=== PATIENT | male | born 1950 | race Caucasian/White ===

== ENCOUNTER 2019-12-09 14:09 | Inpatient (IN) | payer MEDICARE ==
[~2019-12-09] VITALS: Ht 180.3 cm; Wt 86.6 kg
[2019-12-09] MEDS ORDERED: SODIUM CHLORIDE 0.9% 1000ML 1,000 ML IV STA (14:53)
[2019-12-09] MEDS ORDERED: PIPER-TAZ 3.375 GM 50 ML IV STA (14:53)
--- NOTE | 2019-12-09 15:47 | Diagnostic Imaging Report ---
EXAMINATION: FOOT RIGHT COMPLETE INDICATION: Foot infection COMPARISON: None FINDINGS: There is a mildly displaced fracture of the distal shaft of the fourth metatarsal, which may be subacute. There are post traumatic/postoperative changes in this area with loss of the normal bone of the distal fourth metatarsal. Soft tissue swelling at the plantar foot overlying the third and fourth MTP joints with subcutaneous soft tissue emphysema. There are erosions of the third metatarsal head and base of the third proximal phalanx. Degenerative changes of the interphalangeal joint of the great toe. IMPRESSION: Plantar forefoot ulceration and soft tissue swelling. Underlying focal osteopenia and erosions at the third MCP joint concerning for osteomyelitis. Posttraumatic/postoperative changes at the distal fourth metatarsal, proximal fourth phalanx with a fracture of the distal fourth metatarsal shaft, possibly acute or subacute. Signed by: Emilee Cottrell MD on 12/09/2019 3:45 PM
[2019-12-09 16:01] LABS: BASOPHILS # (AUTO) 0.1 (0.0-0.1); BASOPHILS % 0.4 % (0.0-1.0); EOSINOPHILS # (AUTO) 0.1 (0.0-0.4); EOSINOPHILS % 0.6 % (0.0-6.0); HEMATOCRIT 38.1 % (38.2-49.6); HEMOGLOBIN 11.9 g/dL (14.0-18.0); LYMPHOCYTES # (AUTO) 1.1 (1.0-3.2); LYMPHOCYTES % 5.8 % (18.0-39.1); MEAN CORPUSCULAR HEMOGLOBIN 30.5 pg (28-32); MEAN CORPUSCULAR HGB CONC 31.2 g/dL (31-35); MEAN CORPUSCULAR VOLUME 97.7 fL (81-99); MONOCYTES # (AUTO) 1.5 (0.2-0.8); MONOCYTES % 7.4 % (4.4-11.3); NEUTROPHILS # (AUTO) 16.7 (2.1-6.9); PLATELET COUNT 268 x10e3/uL (140-360); RED CELL DISTRIBUTION WIDTH 15.9 % (11.7-14.4)
[2019-12-09 16:16] LABS: ALBUMIN/GLOBULIN RATIO 0.6 (0.8-2.0); ANION GAP 20.8 mmol/L (8-16); CALCIUM 10.5 mg/dL (8.4-10.2); CREATININE, SERUM 8.36 mg/dL (0.72-1.25); POTASSIUM 4.8 mmol/L (3.5-5.1)
[2019-12-09 16:23] LABS: INR 1.15; PROTHROMBIN TIME 15.4 seconds (11.9-14.5)
[2019-12-09 16:24] LABS: PARTIAL THROMBOPLASTIN TIME 35.2 seconds (23.8-35.5)
--- OUTSIDE RECORDS SUMMARY | 2019-12-09 16:58 | XMS REPORT ---
Author [facility] Address Unknown Phone Unavailable Care Team Providers Care English As A Second Language Instructor Name Role Phone Jade DELUNA Unavailable Unavailable Problems This patient has no known problems. Allergies, Adverse Reactions, Alerts This patient has no known allergies or adverse reactions. Medications This patient has no known medications. Encounters Start Date/Time End Date/Time Encounter Type Admission Type Attending Clinicians Care Facility Care Department Encounter ID 2019-07-12 12:41:28 Inpatient [facility] [id number] 2019-06-28 11:17:00 2019-06-28 11:17:00 Outpatient [facility] [id number] Results Test Description Test Time Test Comments Text Results Atomic Results Result Comments FOOT RIGHT COMPLETE 2019-12-09 15:41:00 [place] [id number] Patient Name: SINTIA MCLEAN MR #: [id number] : 1950 Age/Sex: 69/M Req #: [id number] Adm Physician: Ordered by: TRENTON ACHARYA NP Report #: [id number] Location: ER Room/Bed: Procedure: [id number] DX/FOOT RIGHT COMPLETE Exam Date: 12/09/19 Exam Time: 1511 REPORT STATUS: Signed EXAMINATION: FOOT RIGHT COMPLETE INDICATION: Foot infection COMPARISON: None FINDINGS: There is a mildly displaced fracture of the distal shaft of the fourth metatarsal, which may be subacute. There are post traumatic/postoperative changes in this area with loss of the normal bone of the distal fourth metatarsal. Soft tissue swelling at the plantar foot overlying the third and fourth MTP joints with subcutaneous soft tissue emphysema. There are erosions of the third metatarsal head and base of the third proximal phalanx. Degenerative changes of the interphalangeal joint of the great toe. IMPRESSION: Plantar forefoot ulceration and soft tissue swelling. Underlying focal osteopenia and erosions at the third MCP joint concerning for osteomyelitis. Posttraumatic/postoperative changes at the distal fourth metatarsal, proximal fourth phalanx with a fracture of the distal fourth metatarsal shaft, possibly acute or subacute. Signed by: Fermín Dowd MD on 12/09/2019 3:45 PM Dictated By: FEMRÍN DOWD MD 1545 Transcribed By: JAMEY on 12/09/19 1545 COPY TO: TRENTON ACHARYA NP
[2019-12-09] MEDS ORDERED: VANCOMYCIN 1GM/NS 250 ML 250 ML IV SCH (21:00)
[2019-12-09] MEDS ORDERED: AMLODIPINE BESY10 MG PO (22:11)
[2019-12-09] MEDS ORDERED: AMIODARONE HCL200 MG PO (22:11)
[2019-12-09] MEDS ORDERED: INCRUSE ELLI62.5 MCG INH (22:11)
[2019-12-09] MEDS ORDERED: OPTIMAL D31250 MCG PO (22:11)
[2019-12-09] MEDS ORDERED: SYMBICORT 16010.2 GM INH (22:11)
[2019-12-09] MEDS ORDERED: PROAIR DIGIHAL90 MCG INH (22:11)
[2019-12-09] MEDS ORDERED: ETHYL CHLORI103.5 ML TOP (22:11)
[2019-12-09] MEDS ORDERED: DIALYVITE 8000.8 M1 PO (22:11)
[2019-12-09] MEDS ORDERED: ELIQUIS2.5 MG PO (22:11)
[2019-12-09] MEDS ORDERED: MIDODRINE HCL10 MG PO (22:11)
[2019-12-09] MEDS ORDERED: METOPROLOL TART50 MG PO (22:11)
[2019-12-09] MEDS ORDERED: GLIMEPIRIDE2 MG PO (22:11)
[2019-12-09 22:19] LABS: ALBUMIN 2.5 g/dL (3.5-5.0); ALBUMIN/GLOBULIN RATIO 0.5 (0.8-2.0); ANION GAP 18.9 mmol/L (8-16); CALCIUM 9.6 mg/dL (8.4-10.2); CREATININE, SERUM 8.37 mg/dL (0.72-1.25); POTASSIUM 4.9 mmol/L (3.5-5.1)
[2019-12-09] MEDS ORDERED: ALBUTEROL SULFATE HFA 8GM INHALATION AEROSOL INH PRN ×2 (22:30→23:15)
[2019-12-09] MEDS ORDERED: ETHYL CHLORIDE MIST SPRAY 3.5OZ CAN TP SCH (22:30)
[2019-12-09] MEDS ORDERED: AMIODARONE HCL 200 MG TAB PO SCH (22:30)
--- NOTE | 2019-12-09 23:06 | Diagnostic Imaging Report ---
Examination: Single AP view of the chest. COMPARISON: None. INDICATION: Congestion, dyspnea DISCUSSION: The lungs are well-inflated. There are streaky bibasilar opacities, likely atelectasis. Small bilateral pleural effusions. Upper lobes are comparatively well aerated. Enlargement of the cardiac silhouette with prominent central pulmonary vasculature. No acute osseous abnormalities. IMPRESSION: Cardiomegaly with pulmonary venous congestion and small bilateral pleural effusions. Signed by: Dr. Masoud Richmond M.D. on 12/09/2019 11:04 PM
--- NOTE | 2019-12-09 23:28 | NUR ---
Received patient from ER via stretcher. Able to transfer to bed using cane. Patient in stable condition, no s/s of distress or c/o pain at this time. All safety measures in place. Will continue to monitor.
[2019-12-10] VITALS (10 sets, daily range): BP systolic 96–124; BP diastolic 52–59
[2019-12-10] MEDS: APIXAB 2.5 MG TABLET PO SCH ×3 (00:50→20:19)
--- NOTE | 2019-12-10 01:13 | History and Physical ---
CHIEF COMPLAINT: The patient is a 69-year-old who comes in with lower extremity foot and leg swelling. HISTORY OF PRESENTING ILLNESS: 69-year-old gentleman with a history of pain in the right lower extremity for the last 3 months. The patient noticed that the pain and foul smelling discharge started about 2 weeks ago, which has gotten severe. The pain also is described as 8/10 and a throbbing in nature. The patient walked in and was found to have osteomyelitis and cellulitis of the foot. The patient admitted for the same. PAST MEDICAL HISTORY: History of hypertension, history of diabetes mellitus, history of chronic renal disease, history of congestive heart failure. MEDICATIONS: Unknown at this time. SURGERIES: The patient is seen by Dr. Cordero. ALLERGIES: NO DRUG ALLERGIES NOTED. SOCIAL HISTORY: No EtOH. Positive for smoking. FAMILY HISTORY: Diabetes and hypertension. PHYSICAL EXAMINATION: GENERAL: The patient is alert and oriented x3. VITAL SIGNS: Temperature 97.5, pulse 97, respirations 16, blood pressure 116/63, and pulse oximetry 96%. HEENT: Normocephalic and atraumatic. CVS: S1 and S2, regular. Ejection systolic murmur present. LUNGS: Decreased air entry into all lung marley. Positive for inspiratory wheezes. ABDOMEN: Nontender and nondistended. EXTREMITIES: Right lower extremity wrapped up. The patient has foul-smelling discharge with tenderness in the 4th metatarsal. LABORATORY DATA: White count is 19,000, hemoglobin 11.9, and hematocrit 38.1. Chemistry; sodium 131, potassium 4.8, BUN 45, creatinine 8.36, and glucose of 234. MICROBIOLOGY: Blood cultures are pending. IMAGING STUDIES: Foot x-ray shows plantar forefoot ulceration and soft tissue swelling, underlying focal osteopenia and reverse of the 3rd MCP joint. ASSESSMENT: Mr. Jerome Guzman with: 1. Osteomyelitis. 2. End-stage renal disease. The patient has not mentioned anything about dialysis yet. 3. Hypertension. 4. Diabetes mellitus, uncontrolled. 5. Peripheral artery disease. 6. Debility. PLAN: 1. Consult Renal. 2. Consult Dr. Cordero for his arterial Doppler and possible intervention. 3. Consult Dr. Jimenez for antibiotics. 4. Consult Dr. Jorge for Podiatry. 5. Start the patient on insulin sliding scale, statins, and also start the patient on antihypertensive medications. 6. Further recommendation per clinical course. We will continue to monitor the patient along with consultants. MD CLAUDIA Bhakta/CASEY /[id number]
[2019-12-10 01:15] LABS: CREATINE KINASE MB 2.6 ng/mL (0-5.0)
[2019-12-10] MEDS: ALBUTEROL SULF 0.083% NEB SOLN 3 ML NEB NEB PRN (01:40)
--- NOTE | 2019-12-10 01:41 | NUR ---
Placed call to [facility] to schedule patient for hemodialysis session today.
[2019-12-10] MEDS ORDERED: SODIUM CHLORIDE 0.9% 250ML 250 ML ONE (05:07)
[2019-12-10 06:51] LABS: BASOPHILS # (AUTO) 0.1 (0.0-0.1); BASOPHILS % 0.4 % (0.0-1.0); EOSINOPHILS # (AUTO) 0.2 (0.0-0.4); EOSINOPHILS % 1.1 % (0.0-6.0); HEMATOCRIT 33.3 % (38.2-49.6); HEMOGLOBIN 10.7 g/dL (14.0-18.0); LYMPHOCYTES % 6.2 % (18.0-39.1); MEAN CORPUSCULAR HEMOGLOBIN 30.9 pg (28-32); MEAN CORPUSCULAR HGB CONC 32.1 g/dL (31-35); MEAN CORPUSCULAR VOLUME 96.2 fL (81-99); MONOCYTES # (AUTO) 1.2 (0.2-0.8); MONOCYTES % 7.1 % (4.4-11.3); NEUTROPHILS # (AUTO) 13.9 (2.1-6.9); NEUTROPHILS % 83.8 % (38.7-80.0); PLATELET COUNT 222 x10e3/uL (140-360); RED BLOOD COUNT 3.46 x10e6/uL (4.3-5.7); RED CELL DISTRIBUTION WIDTH 15.9 % (11.7-14.4)
[2019-12-10 07:08] LABS: ALBUMIN 2.4 g/dL (3.5-5.0); ALBUMIN/GLOBULIN RATIO 0.5 (0.8-2.0); ANION GAP 18.1 mmol/L (8-16); CALCIUM 9.5 mg/dL (8.4-10.2); CREATININE, SERUM 9.01 mg/dL (0.72-1.25); POTASSIUM 5.1 mmol/L (3.5-5.1)
--- NOTE | 2019-12-10 07:09 | NUR ---
Bedside report given to day nurse. Patient awake and resting in bed, no s/s of distress or c/o pain at this time. All safety measures in place.
--- NOTE | 2019-12-10 07:10 | NUR ---
pt up in bed awake,denies pain
[2019-12-10] MEDS: AMLODIPINE BESYLATE 10 MG TAB PO SCH (09:00)
--- NOTE | 2019-12-10 09:19 | Progress Note ---
DATE: 12/10/2019 SUBJECTIVE: The patient was admitted for cellulitis and osteomyelitis of the right foot. Currently, the patient is more talkative compared to yesterday, going to give more history. More coherent, more alert and oriented. The patient apparently has history of end-stage renal disease, getting dialysis. The patient also has medications, which have been reconciled. Also, the patient is on Eliquis 2.5 mg twice a day. Currently, no chest pain. No shortness of breath. In good spirits. No nausea, no vomiting, or diarrhea. Pain in the right foot is controlled. OBJECTIVE: VITAL SIGNS: Temperature is 99.5, pulse of 79, respirations of 20, blood pressure is 109/52, and pulse oximetry of 93%. HEENT: Normocephalic and atraumatic. Pupils are reactive to light and accommodation. CVS: S1, S2 irregular. ABDOMEN: Nontender, nondistended. EXTREMITIES: Positive for multiple ecchymoses, right lower extremity with drainage, present on socks. Yesterday's examination reviewed ulceration and necrotic tissue with possible discharge. LABORATORY VALUES: Today, white count is 16,000 down from 19,000 yesterday; hemoglobin of 10.7, hematocrit 33.3. Chemistry; shows sodium of 130, potassium of 5.1. BUN of 58, creatinine of 9.0. Hemoglobin A1c checked showed 7.7. CK, CK-MB, and troponins have been trended to be negative. ALT and AST are normal. Coags are within normal limits. INR is 1.15. MICROBIOLOGY: Blood cultures are pending. Wound culture has been done. ASSESSMENT: Mr. Jerome Guzman with: 1. End-stage renal disease. 2. Osteomyelitis. 3. Hypertension. 4. Diabetes mellitus. 5. Peripheral arterial disease. 6. Debility. PLAN: 1. Renal consult for dialysis. 2. Consult with Dr. Jimenez for ID and also for long-term IV antibiotics. Dr. Jorge is consulted. We will need debridement and incision and drainage of the foot. 3. Also, consult with Dr. Cordero for arterial doppler and possible intervention if needed for PAD. 4. Further recommendation per clinical course. Medicines have been restarted. Additional imaging of chest shows cardiomegaly with pulmonary venous congestion and small bilateral pleural effusion. Further recommendation per clinical course. Echocardiogram has been ordered. An arterial Doppler has been ordered, which has been pending. MD CLAUDIA Bhakta/CASEY /[id number]
[2019-12-10] MEDS: CHOLECALCIFEROL 1,000 UNIT TAB PO SCH (09:47)
[2019-12-10] MEDS: GLIMEPIRIDE 2 MG TAB PO SCH (09:47)
[2019-12-10] MEDS: FOLIC ACID/CYANOCOB/PYRIDOXINE TAB PO SCH (09:47)
[2019-12-10] MEDS: INSULIN LISPRO 100 UNIT/1 ML 3ML VIAL SQ SCH ×3 (09:47→20:19)
[2019-12-10] MEDS ORDERED: VANCOMYCIN 1GM/NS 250 ML 250 ML IV SCH (11:00)
--- NOTE | 2019-12-10 12:45 | Consultation ---
DATE OF CONSULTATION: 12/10/2019 HISTORY OF PRESENT ILLNESS: Here with gangrene of the foot. Had foul-smelling discharge and discoloration for last seven days, maybe even two weeks ago. Pain has gotten worse. He has now found to have osteomyelitis on that side. There is history of chronic smoking as well as peripheral vascular disease and COPD as well as diabetes. He did have some work done on the peripheral circulation by Dr. Olguin. PAST HISTORY: Peripheral vascular disease, hypertension, type 2 diabetes with end-organ damage, CHF, chronic smoking, coronary artery disease. MEDICATIONS: Please see list. ALLERGIES: NONE KNOWN. SOCIAL HISTORY: At least 50 pack year history of smoking. FAMILY HISTORY: Hypertension. REVIEW OF SYSTEMS: SKIN: Discoloration on the right foot. MUSCULOSKELETAL: Pain in the right foot. CARDIAC: Denies angina or syncope. RESPIRATORY: Chronic cough. Occasional wheezing. GI: Denies nausea or vomiting. : Minimal urine production. Rest of review is negative. PHYSICAL EXAMINATION: GENERAL: Lying in bed, appears to be in some pain. VITAL SIGNS: Temperature is 97, pulse 98, blood pressure 111/54. HEENT: Grossly Atraumatic. CHEST: Minimal wheeze (still smokes). CARDIAC: Normal heart tones. Question S4. EXTREMITIES: Trace edema on the right side, none on the left. ABDOMEN: Benign. NEUROLOGIC: Alert, appropriate. Speech is normal. SKIN: Right foot is bandaged. There appears to be some erythema around the bandaging. There is a foul smell coming from the right foot. LABORATORY DATA: Chest x-ray shows congestion. Hemoglobin 10.7. Sodium 130, K 5.1, creatinine 9, BUN 58, serum CO2 22, anion gap 18. ASSESSMENT: 1. End-stage renal disease. 2. Minimal fluid overload. 3. History of chronic hyperkalemia, controlled by dialysis. 4. Underlying diabetic hypertension, end-organ damage. 5. Peripheral vascular disease. 6. Ongoing nicotine use. 7. Likely chronic obstructive pulmonary disease. PLAN: Definitive treatment is hemodialysis from my end. Podiatry will see him regarding the foot. We will also get Dr. Olguin to see him regarding his peripheral circulation as I had had worked on it before to see if anything more can be done. I have also encouraged him to quit smoking on a regular basis over the last several years. We will continue to do so. Please see my dialysis orders for details. MD LINDA Ling/CASEY /[id number]
[2019-12-10] MEDS: HYDROCODONE/APAP 5MG-325MG TAB PO PRN (16:00)
--- NOTE | 2019-12-10 18:15 | Consultation ---
DATE OF CONSULTATION: 12/10/2019 The patient at [facility]. The patient of Dr. Patrick Cabrera. Before anything, I want to thank you for this kind of consult. This patient was seen, evaluated, and discussed with Dr. Jimenez in details. Currently, dialysis and Radiology in the room getting dialyzed and getting arterial Doppler of his lower extremities bilateral. HISTORY OF PRESENT ILLNESS: This is a pleasant 69-year-old gentleman with complicated past medical history. The patient had presented to the hospital complaining of right lower extremity wounds between his first and second toe and some redness at the base of the third toe with progressive worsening. He has been going on for three months and now started having to drainage for past couple of weeks and malodorous. The patient was admitted for evaluation and further management of his infection. PAST MEDICAL HISTORY: Includes hypertension, diabetes mellitus type 2, chronic renal insufficiency on dialysis, and congestive heart failure. SOCIAL HISTORY: Lives alone. He smokes 4-5 cigarettes a day, but denies history of alcohol or illicit drugs. ALLERGIES: ALLERGY TO PENICILLIN. SURGERIES: Dialysis line placement. FAMILY HISTORY: Diabetes and hypertension. LABORATORY STUDIES: Admitted with a white count of 19.82, improved to 16.56 today, hemoglobin is 10.7, platelet count of 222. Sodium 130, potassium 5.1, and creatinine 9.01. The patient is on dialysis. RADIOLOGY STUDIES: Had an x-ray of the foot on 12/09/2019 showing plantar forefoot ulceration of soft tissue swelling, underlying focal osteopenia, and erosion of the third MCP joint concerning for osteomyelitis, also posttraumatic/postoperative changes at the distal fourth metatarsal, proximal fourth phalanx, and a fracture of the distal fourth metatarsal shaft, possibly acute or subacute. MEDICATIONS: Medication list reviewed. As far as Infectious Disease point of view, the patient is on vancomycin and has received a dose of Zosyn. Considering the patient is allergic to penicillin, there are no active acute allergic reaction noted. VITAL SIGNS: Temperature 97.1, pulse is 98, respirations 20, and blood pressure 111/54. The patient has not had any fever since admission. PHYSICAL EXAMINATION: GENERAL: Alert and oriented x3, very pleasant, comfortable in bed, no acute distress. CV: S1-S2. CHEST: Equal expansion. Clear to auscultation. No acute distress. HEENT: Moist. No pallor. No JVD. ABDOMEN: Soft and nontender. No distention. EXTREMITIES: Right foot pus drainage noted between the first and second toe with erythema of the toes up to the mid metatarsal area. The wound is malodorous and I was able to squeeze some pus out of his wound on the right foot. ASSESSMENT AND PLAN: A pleasant 69-year-old gentleman with progressive worsening of the right foot wound now with draining of pus and malodorous x-ray concerned about osteo. The patient is on dialysis and allergic to penicillin. We will change antibiotics to vancomycin IV and Merrem renally dosed. Add vancomycin 1 g IV piggyback every dialysis and Merrem 500 mg IV piggyback daily. We will get MRI of the right foot without the contrast since the patient is on dialysis. Follow up with the cultures. Further management of this patient is based on daily finding on laboratory and physical examination. I want to thank you again for this kind of consult. I have discussed with Dr. Jimenez about this patient in details. Dictated by Stephen Siddiqui PA-C (Al) Oscar Jimenez MD /MODL /[id number]
--- NOTE | 2019-12-10 18:22 | NUR ---
PT IN BED SLEEPING NO DISTRESS NTOED,PAIN LEVEL 3.
--- NOTE | 2019-12-10 20:16 | NUR ---
Received change of shift report from AM nurse. Walking rounds completed.
[2019-12-10] MEDS: ONDANSETRON HCL INJ 2MG/ML 2ML 2 MG/ML VIAL IV PRN (21:00)
--- NOTE | 2019-12-10 21:00 | NUR ---
Redressed patient left foot after shower. Patient tolerated well.
--- NOTE | 2019-12-10 22:12 | Consultation ---
DATE OF CONSULTATION: 12/10/2019 Cardiology Consultation REASON FOR CONSULTATION: Peripheral arterial disease. HISTORY OF PRESENT ILLNESS: This is a 69-year-old man with a history of paroxysmal atrial fibrillation with prior cardioversion in the past and status post implantable loop recorder. He is on anticoagulation, hypertension, hyperlipidemia, prior tobacco use, and peripheral arterial disease status post intervention in 2019, who presented to the emergency department with a foot infection. The patient reports he has had significant pain with foul smelling discharge that approximately started a few weeks ago was severe, was found to have cellulitis, and osteomyelitis. REVIEW OF SYSTEMS: A 12-point review of system was conducted, is negative except as stated above in the HPI. PAST MEDICAL HISTORY: Hypertension, diabetes mellitus, peripheral arterial disease, atrial fibrillation, aortic stenosis. MEDICATIONS: See medications of reconciliation form. PAST SURGICAL HISTORY: Percutaneous peripheral intervention. SOCIAL HISTORY: No illicit drug or alcohol use. Positive for tobacco. FAMILY HISTORY: Noncontributory to current illness. ALLERGIES: PENICILLIN. PHYSICAL EXAMINATION: VITAL SIGNS: Temperature is 97.1, heart rate is 85, respirations are 20, blood pressure is 111/54, oxygen saturation is 96% on room air. GENERAL: He is a chronically ill-appearing male, lying comfortably in bed, no apparent distress. Alert and oriented x3. HEENT: Head, normocephalic and atraumatic. Eyes, extraocular muscles intact. Conjunctivae clear. NECK: No JVD. No bruits. CARDIOVASCULAR: Irregularly irregular. Systolic murmur at the right sternal border. LUNGS: Clear to auscultation. ABDOMEN: Soft, nontender, and nondistended. EXTREMITIES: Diminished pulses. Red erythema under the right foot and toes are wrapped and dressed. LABORATORY DATA: Reviewed shows a creatinine of 9. Potassium 5.1. IMPRESSION: 1. Acute kidney injury, likely end-stage renal disease. 2. Hypertension. 3. Peripheral arterial disease. 4. Right foot wound with osteomyelitis. 5. Diastolic heart failure. 6. Atrial fibrillation. RECOMMENDATIONS: This patient has severe peripheral arterial disease, status post intervention in 2019. His arterial Doppler showed severe femoral popliteal and runoff disease in bilateral lower extremities. I also recommend peripheral intervention for adequate wound healing. His echocardiogram has showed preserved left ventricular systolic function with likely diastolic dysfunction. Continue current cardiovascular medications for his hypertension and atrial fibrillation. Antibiotics per primary team. Resume amiodarone for rate control. The patient will be initiated on hemodialysis. DO REAL Vaughan/CASEY /[id number]
[2019-12-11] VITALS (7 sets, daily range): BP systolic 92–115; BP diastolic 50–60
--- NOTE | 2019-12-11 03:00 | NUR ---
Patient resting quitly at this time. Continue monitor.
[2019-12-11] MEDS: ALBUTEROL SULF 0.083% NEB SOLN 3 ML NEB NEB PRN (07:15)
--- NOTE | 2019-12-11 07:15 | NUR ---
PT UP IN BED NO S/S DISCOMFORT,DRSG TO RT FOOT CD&I
[2019-12-11] MEDS: INSULIN LISPRO 100 UNIT/1 ML 3ML VIAL SQ SCH ×4 (07:30→20:52)
--- NOTE | 2019-12-11 07:54 | Progress Note ---
DATE: 12/11/2019 SUBJECTIVE: The patient is here for cellulitis of the lower extremity. The patient is diabetic, history of coronary artery disease and history of hypertension. The patient had pain in the extremities yesterday. He was started on [place] 5/325 every 8 hours and the pain is better controlled. Medications reviewed. The patient is also on albuterol and Atrovent treatment for his COPD. OBJECTIVE: VITAL SIGNS: Temperature is 98.2, pulse of 85, respirations of 18, blood pressure is 92/53, pulse oximetry of 95% on room air. HEENT: Normocephalic and atraumatic. Pupils are reactive to light and accommodation. CVS: S1 and S2 irregularly irregular. Systolic murmur present. LUNGS: Decreased air entry. ABDOMEN: Soft, nontender. LABORATORY VALUES: Today shows white count of 16,000 down from 19,000. Chemistry; sodium 130, potassium of 5.1, BUN of 58, creatinine of 9.0, glucose is running in the 120s to 207. ASSESSMENT: Mr. Jerome Guzman with: 1. Worsening of right foot, concerning of osteomyelitis. 2. End-stage renal disease. Continue with dialysis. Renal team on-board. 3. Hypertension. Continue with antihypertensive. 4. Peripheral arterial disease. 5. Diastolic dysfunction and heart failure. 6. Atrial fibrillation. PLAN: Continue monitoring the patient. Arterial Doppler with femoral or popliteal and runoff diseases. Peripheral intervention will be needed. The echo shows left ventricular preserved function. Continue current cardiovascular medications. Continue with dialysis. Continue with antibiotics. Dr. Jimenez is on-board and reconsult Dr. Jorge for possible intervention with foot, he may need amputation. MD BETH BhaktaJ/MODL /[id number]
[2019-12-11] MEDS: GLIMEPIRIDE 2 MG TAB PO SCH (08:00)
[2019-12-11] MEDS: MEROPENEM 500MG/ NS 50ML 50 ML IV SCH (09:00)
[2019-12-11] MEDS: AMLODIPINE BESYLATE 10 MG TAB PO SCH (09:00)
[2019-12-11] MEDS: METOPROLOL TARTRATE 50 MG TAB PO SCH ×2 (09:00→20:52)
[2019-12-11] MEDS: APIXAB 2.5 MG TABLET PO SCH ×2 (09:00→20:51)
[2019-12-11] MEDS: HYDROCODONE/APAP 5MG-325MG TAB PO PRN ×2 (09:00→14:14)
[2019-12-11] MEDS: CHOLECALCIFEROL 1,000 UNIT TAB PO SCH (09:00)
[2019-12-11] MEDS: FOLIC ACID/CYANOCOB/PYRIDOXINE TAB PO SCH (09:51)
[2019-12-11] MEDS: ACETAMINOPHEN 325 MG TAB PO PRN (12:08)
--- NOTE | 2019-12-11 15:45 | Progress Note ---
DATE: 12/11/2019 Cardiology Progress Note SUBJECTIVE: The patient denies any chest pain or shortness of breath. Reports leg pain. OBJECTIVE: VITAL SIGNS: Temperature is 101, heart rate is 103, respirations are 20, blood pressure is 115/54, oxygen saturation 96% on room air. GENERAL: He is a chronically ill-appearing male, lying comfortably in bed. CARDIOVASCULAR: Irregularly irregular. Tachycardic. LUNGS: Decreased breath sounds at bases. ABDOMEN: Soft, nontender, and nondistended. EXTREMITIES: Decreased pulses. Right foot wound is wrapped and dressed. IMPRESSION: 1. End-stage renal disease. 2. Hypertension. 3. Peripheral artery disease. 4. Right foot wound with osteomyelitis. 5. Diastolic heart failure. 6. Atrial fibrillation. RECOMMENDATION: Arterial Doppler showed severe peripheral artery disease. He has had a previous intervention. Likely, we will need arterial intervention prior to amputation and/or debridement for wound healing. Continue apixaban for his anticoagulation. Continue amiodarone and titrate his beta-daria for better heart rate reduction. DO REAL Vaughan/MODL /[id number]
--- NOTE | 2019-12-11 16:00 | NUR ---
PT UP ON SIDE OF BED REMOVED TELE STATED HE WAS GOING HOME,EXPLAINED TO HIM NO HE COULD NOT ,ACKNOWLEDGE UNDERSTANDING.ASSISTED BACK TO BED ,BED ALARM ON 2 POSITION.
--- NOTE | 2019-12-11 18:00 | NUR ---
PT UP IN BED ,PAIN LEVEL 3 ,TELE IN PLACE AFIB.
--- NOTE | 2019-12-11 19:31 | NUR ---
Received change of shift report from AM nurse. Walking rounds completed.
--- NOTE | 2019-12-11 21:05 | Consultation ---
DATE OF CONSULTATION: 12/11/2019 REASON FOR CONSULTATION: Right foot cellulitis. CHIEF COMPLAINT/HISTORY OF PRESENT ILLNESS: This is a pleasant gentleman, who recently noticed redness, swelling as well as pain to the right foot. He stated his pain is not significant; however, he did notice some discomfort. At this point in time, he currently denies any nausea, vomiting, fevers, chills thigh pain, chest pain, calf pain, shortness of breath. He did complain of some nausea earlier with lunch. PAST MEDICAL HISTORY: Significant for end-stage renal disease, diabetes mellitus, coronary artery disease, as well as peripheral vascular disease. SOCIAL HISTORY: The patient is a smoker. He smokes about 7-8 cigarettes per day for over 20 years. PREVIOUS SURGICAL HISTORY: Cardiac valve replacement. FAMILY MEDICAL HISTORY: Noncontributory. REVIEW OF SYSTEMS: See admission PHYSICAL EXAMINATION: GENERAL: The patient is alert, awake, oriented x3, in no acute distress. VASCULAR EXAMINATION: The patient has nonpalpable both dorsalis pedis and posterior tibial pulses bilaterally. the right lower extremity. DERMATOLOGIC: Reveals increased erythema as well as edema to the patient's right anterior ankle dorsal foot well extending to the first interspace. Additionally, there is a full thickness ulceration with necrosis to the 1st interspace. No crepitus is noted. No fluctuance is present. There is also ulceration to the plantar and lateral aspect of the right foot underlying the 3rd to 4th metatarsophalangeal joint. Localized periwound erythema is noted. Malodor is present. NEUROLOGIC: The patient has loss of DIAGNOSTIC STUDIES: Sodium 130, potassium 5.1, chloride level is 95, CO2 is 22, BUN 58, creatinine is 9.01, glucose 190. WBC is 16.5, hemoglobin 10.7, hematocrit is 33.3, platelet count is 222. ASSESSMENT: 1. Cellulitis with possible abscess, right foot. 2. Possible osteomyelitis, right foot. 3. Peripheral arterial occlusive disease, right lower extremity. 4. Diabetes mellitus peripheral neuropathy. 5. End-stage renal disease. RECOMMENDATIONS: 1. At this point in time, IV antibiotics per Infectious Disease. 2. Local wound care will be started with Betadine twice on a daily basis. 3. MRI with and without contrast is currently ordered. 4. Arterial Dopplers were reviewed, which revealed monophasic waveforms bilaterally from proximal to distal. 5. Heel decubitus precautions are certainly recommended. 6. At this point in time, the patient will require an I and D of the right foot with possible bone debridement; however, that would be pending MRI. Additionally, vascular evaluation currently has been ordered and we are awaiting the results of vascular exam to determine healing potential. Further recommendations will begin based on the patient's clinical progression. Dr. Jorge will follow this patient tomorrow. Dr. Cabrera, thank you for this consultation. this patient with you. Alfredo Kuhn DPM MM/CASEY /[id number]
--- NOTE | 2019-12-11 22:52 | NUR ---
Patient BP at 98/60. o2 sat at 90%. Patient c/o being weak. Placed 2L o2 on patient to help with low sat. Patient states BP gets low at times and he knows when it is very low. Patient states i feel ok. Night meds given. Patient asst into a comfortable position. Continue monitor.
[2019-12-12] VITALS (9 sets, daily range): BP systolic 94–103; BP diastolic 50–55
[2019-12-12] MEDS: ONDANSETRON HCL INJ 2MG/ML 2ML 2 MG/ML VIAL IV PRN ×2 (05:06→10:50)
[2019-12-12] MEDS: INSULIN LISPRO 100 UNIT/1 ML 3ML VIAL SQ SCH ×4 (07:30→20:15)
--- NOTE | 2019-12-12 07:30 | NUR ---
PATIENT IN BED RESTING WITH EYES CLOSED, HEAD OF BED ELEVATED, NO DISTRESS NOTED. TELEMETRY BOX IN PLACE. BED IN LOWER POSITION, CALL LIGHT AT REACH.
[2019-12-12] MEDS: GLIMEPIRIDE 2 MG TAB PO SCH (08:00)
[2019-12-12] MEDS: AMLODIPINE BESYLATE 10 MG TAB PO SCH (09:00)
[2019-12-12] MEDS: APIXAB 2.5 MG TABLET PO SCH ×2 (09:00→20:16)
[2019-12-12] MEDS: FOLIC ACID/CYANOCOB/PYRIDOXINE TAB PO SCH (09:00)
[2019-12-12] MEDS: CHOLECALCIFEROL 1,000 UNIT TAB PO SCH (09:00)
[2019-12-12] MEDS: METOPROLOL TARTRATE 50 MG TAB PO SCH ×2 (09:00→20:17)
[2019-12-12] MEDS: MEROPENEM 500MG/ NS 50ML 50 ML IV SCH (09:02)
[2019-12-12 09:38] LABS: ALANINE AMINOTRANSFERASE 31 IU/L (0-55); ALBUMIN 2.5 g/dL (3.5-5.0); ALKALINE PHOSPHATASE 185 IU/L (40-150); AMYLASE 23 U/L (25-125); BILIRUBIN,DIRECT 1.2 mg/dL (0.0-0.5)
[2019-12-12 09:41] LABS: LIPASE < 4 U/L (8-78)
--- NOTE | 2019-12-12 10:30 | NUR ---
PATIENT C/O HEART BURN, NOTIFIED, NEW ORDER RECEIVED.
[2019-12-12] MEDS: PANTOPRAZOLE 40 MG 10ML VIAL IV SCH ×2 (10:51→17:00)
[2019-12-12] MEDS: DEXTROSE 50% SYRINGE 50 ML IV PRN (11:50)
--- NOTE | 2019-12-12 12:38 | Progress Note ---
DATE: 12/12/2019 SUBJECTIVE: Getting wound care and antibiotics for possible osteomyelitis at this point. I and D and possible bone debridement is being considered. Denies any new dyspnea, but he does have chronic wheezing. There is a history of COPD. PHYSICAL EXAMINATION: VITAL SIGNS: Temperature 98.4, pulse 85, blood pressure 94/55. CHEST: Faint crackles at the bases. Minimal wheeze. CARDIAC: Normal heart tones. Rhythm sounds regular. EXTREMITIES: Trace edema on the left, 1+ on the right. Right foot is bandaged with foul smell. LABORATORY DATA: Hemoglobin of 10.7. Last potassium was 5.1. ASSESSMENT: 1. End-stage renal disease. 2. Diabetic nephropathy. 3. Chronic obstructive pulmonary disease. 4. Peripheral vascular disease with concern for osteomyelitis/cellulitis of the right foot. PLAN: From renal standpoint, hemodialysis today 4 hour run, 2 potassium bath. I removed 3 L of fluid, if his blood pressure tolerates. He takes midodrine predialysis. We will start cutting back his amlodipine. MD ROBERT LingK/LEONARDAL /[id number]
--- NOTE | 2019-12-12 13:00 | NUR ---
PATIENT NOTED WITH BLOOD SUGAR OF 48. NO S/S OF HYPOGLYCEMIA NOTED. PATIENT STATED "I AM FINE". DEXTROSE 50% GIVEN ORDERED. BLOOD SUGAR RECHECKED WITH THE READING OF 128. MD NOTIFIED, NO NEW ORDER RECEIVED. WILL CLOSELY MONITOR.
--- NOTE | 2019-12-12 14:20 | NUR ---
PATIENT OFF UNIT TO RADIOLOGY.
--- NOTE | 2019-12-12 15:04 | Progress Note ---
DATE: 12/12/2019 SUBJECTIVE: Mr. Guzman is lying in bed comfortably. There is no new complaint. Discussed with Podiatry. HISTORY OF PRESENT ILLNESS: This patient is a 69-year-old, who has complicated medical history, history of diabetes, hypertension, comes in with sepsis, infected foot. The patient has been on meropenem and vancomycin. He was seen by Podiatry. They plan for him to have surgical debridement, would also need Vascular workup. MRI is still pending. REVIEW OF SYSTEMS: As mentioned above. HEENT: Negative. PULMONARY: Negative. CARDIAC: Negative. LABORATORY DATA: His cultures are still negative. White count came down to 16. IMPRESSION: 1. Infection of the foot, concerned about osteomyelitis, concerned about abscess. 2. Right foot infection. 3. Severe peripheral vascular disease. 4. Diabetes mellitus with neuropathy. 5. End-stage renal disease, on dialysis. PLAN: Plan is to continue with meropenem daily, vancomycin after each hemodialysis, Vascular workup, surgical debridement per Podiatry. MRI is still pending. We will follow. MD IVETTE Lino/CASEY /[id number]
--- NOTE | 2019-12-12 15:06 | Diagnostic Imaging Report ---
Abdomen, one view on 2 radiographs Clinical indications: Emesis Comparison: None Findings: The bowel gas pattern is nonobstructive. No dilated loops of large or small bowel are identified. Atherosclerotic calcifications of the abdominal aorta are noted. No acute osseous abdomen bodies. Impression: Nonobstructive bowel gas pattern. Signed by: Steven Jain MD on 12/12/2019 3:04 PM
[2019-12-12] MEDS ORDERED: SODIUM CHLORIDE 0.9% 1000ML 2,000 ML ONE (15:15)
--- NOTE | 2019-12-12 15:40 | NUR ---
PATIENT BACK TO UNIT. BED SIDE HEMODIALYSIS STARTED. CALL LIGHT AT REACH.
[2019-12-12] MEDS ORDERED: POVIDONE IODINE 10% 120 ML BTL EXT PRN (19:00)
--- NOTE | 2019-12-12 21:51 | Progress Note ---
DATE: 12/12/2019 Cardiology Progress Note SUBJECTIVE: The patient denies chest pain or shortness of breath. OBJECTIVE: VITAL SIGNS: Temperature 95.5 degrees, pulse 109, respiratory rate 19, blood pressure 94/51, oxygen saturation 95% on room air. GENERAL: Awake, alert, in no acute distress. LUNGS: Clear to auscultation bilaterally. No wheezes or crackles. CARDIOVASCULAR: Normal rate, irregularly irregular. No murmur. Normal S1, S2. ABDOMEN: Soft, nontender. EXTREMITIES: Dressing present on the right lower extremity. No edema. CARDIAC MEDICATIONS: Metoprolol tartrate 50 mg p.o. every 12 hours, apixaban 2.5 mg p.o. every 12 hours, amiodarone 200 mg p.o. daily. LABORATORY DATA: AST 49, ALT 31, amylase 23, lipase less than 4. Telemetry was personally reviewed, court interpreter revealing atrial fibrillation. IMPRESSION: 1. Right foot wound with osteomyelitis. 2. Peripheral arterial disease. 3. Atrial fibrillation. 4. End-stage renal disease. 5. Hypertension. 6. Diastolic heart failure. RECOMMENDATIONS: Arterial Doppler showed severe peripheral arterial disease. He will need repeat peripheral angiogram and possible intervention to assist with wound healing. The patient can hold apixaban for any procedures and continue current cardiac medications. Titrate if heart rate is persistently elevated. Thank you for this consult. We will continue to follow. Qiana Broderick MD ABS/MODL /[id number]
[2019-12-13] VITALS (10 sets, daily range): BP systolic 87–113; BP diastolic 49–58
[2019-12-13] MEDS: MIDODRINE HCL 5 MG TABLET PO SCH (00:10)
--- NOTE | 2019-12-13 01:37 | Consultation ---
DATE OF CONSULTATION: 12/12/2019 CHIEF COMPLAINT: Mr. Guzman is most pleasant 69-year-old gentleman who admitted to [facility] over the weekend. He is a patient of Dr. Patrick Cabrera. Since admission, he has seen Dr. Serg Bills, who has kindly consulted me to evaluate and treat the patient. He has also seen Dr. Johnson of Infectious Disease and Dr. Olguin of vascular. The patient is currently on dialysis and is having dialysis at the time of my rounds. HISTORY OF THE PRESENT ILLNESS: Mr. Guzman states over the course of the last several weeks, he started noticing small spots of blood on his sock and dressing which ultimately became a full-thickness skin slough with drainage and foul odor. He also has nausea, vomiting, and presented to the ER with septicemia. PAST MEDICAL HISTORY: Includes hypertension, diabetes, chronic renal insufficiency on dialysis currently. However, he states he was not on dialysis prior to his admission. The patient has a history of congestive heart failure. SOCIAL HISTORY: Lives alone. He is a smoker, 4-5 cigarettes a day. Denies history of alcohol. ALLERGIES: PENICILLIN. FAMILY HISTORY: Includes diabetes and hypertension. CURRENT LABS: Still showing elevated white count at 16.00. He was admitted with 19.82. The patient's x-rays which were taken in the ER on 12/09 showed plantar forefoot ulceration with osteopenia erosion of the 3rd metatarsophalangeal joint, likely osteomyelitis with a 4th metatarsal fracture. MEDICATIONS: The patient is currently on vancomycin via dialysis. PHYSICAL EXAMINATION: VITAL SIGNS: The patient is currently afebrile. EXTREMITIES: Physical evaluation of the lower extremity vascular status the patient has nonpalpable pedal pulses. Vascular evaluation is currently being performed by Dr. Bassem Olguin in consideration of his overall health care needs and dialysis. Neurologically, he does appear to have a loss of protective sensation as evidenced by Lyons-Constance monofilament testing. Dermatologically the wounds today. The left foot has no obvious wounds, but does have dry xerotic skin with onychomycosis. The right foot similarly has dry xerotic skin with onychomycosis. There are multiple darkened blackened plaques on the plantar aspect of the left foot. Review of the radiographic report does show the aforementioned bone breakdown and fracture, likely osteomyelitis. There is an open draining wound in the first intermetatarsal space as well as the second intermetatarsal space. Drainages of a foul odor and there is a bullous lesion with edema and erythema proximally. DIAGNOSES: Diabetic foot wound with osteomyelitis. There is fairly significant tissue breakdown and osteomyelitis with severe PAD. I agree with Dr. Olguin. He is likely in need of revascularization prior to attempted amputation of the right foot. He is currently on dialysis Thursday, Thursday and Thursday. Hopefully, he will have his MRI and vascular evaluation tomorrow. Dialysis again on Thursday, then perhaps surgical intervention either with I and D or amputation as determined based upon the aforementioned studies on . Thank you very much, Dr. Kuhn, for covering for me over the weekend and already evaluating this patient. Thank you, Elizabeth Claudio Schnell and vascular and renal services for attending to those needs prior to surgical intervention. JENSEN Canela/CASEY /[id number]
[2019-12-13 05:56] LABS: BASOPHILS # (AUTO) 0.1 (0.0-0.1); BASOPHILS % 0.5 % (0.0-1.0); EOSINOPHILS # (AUTO) 0.1 (0.0-0.4); EOSINOPHILS % 0.4 % (0.0-6.0); HEMATOCRIT 32.8 % (38.2-49.6); HEMOGLOBIN 10.7 g/dL (14.0-18.0); LYMPHOCYTES # (AUTO) 1.1 (1.0-3.2); LYMPHOCYTES % 7.1 % (18.0-39.1); MEAN CORPUSCULAR HEMOGLOBIN 31.3 pg (28-32); MEAN CORPUSCULAR HGB CONC 32.6 g/dL (31-35); MEAN CORPUSCULAR VOLUME 95.9 fL (81-99); MONOCYTES # (AUTO) 1.4 (0.2-0.8); NEUTROPHILS # (AUTO) 12.3 (2.1-6.9); NEUTROPHILS % 80.3 % (38.7-80.0); PLATELET COUNT 289 x10e3/uL (140-360); RED BLOOD COUNT 3.42 x10e6/uL (4.3-5.7); RED CELL DISTRIBUTION WIDTH 16.1 % (11.7-14.4)
[2019-12-13 06:20] LABS: ANION GAP 14.2 mmol/L (8-16); CALCIUM 8.6 mg/dL (8.4-10.2); CREATININE, SERUM 5.02 mg/dL (0.72-1.25); POTASSIUM 4.2 mmol/L (3.5-5.1)
[2019-12-13] MEDS: DEXTROSE 50% SYRINGE 50 ML IV PRN (06:45)
--- NOTE | 2019-12-13 07:25 | NUR ---
PATIENT IN BED RESTING WITH NO S/S OF DISTRESS. DRESSING INTACT TO RIGHT FOOT. CALL LIGHT AT REACH.
[2019-12-13] MEDS: INSULIN LISPRO 100 UNIT/1 ML 3ML VIAL SQ SCH ×4 (07:30→21:00)
[2019-12-13] MEDS: GLIMEPIRIDE 2 MG TAB PO SCH (08:00)
[2019-12-13] MEDS: METOPROLOL TARTRATE 50 MG TAB PO SCH ×2 (09:00→21:00)
[2019-12-13] MEDS: MEROPENEM 500MG/ NS 50ML 50 ML IV SCH (09:28)
[2019-12-13] MEDS: APIXAB 2.5 MG TABLET PO SCH (09:28)
[2019-12-13] MEDS: FOLIC ACID/CYANOCOB/PYRIDOXINE TAB PO SCH (09:28)
[2019-12-13] MEDS: PANTOPRAZOLE 40 MG 10ML VIAL IV SCH ×2 (09:28→17:31)
[2019-12-13] MEDS: CHOLECALCIFEROL 1,000 UNIT TAB PO SCH (09:28)
--- NOTE | 2019-12-13 10:38 | NUR ---
PATIENT OFF UNIT TO RADIOLOGY.
--- NOTE | 2019-12-13 11:28 | NUR ---
PATIENT BACK TO UNIT FROM RADIOLOGY. ASSISTED BACK TO BED. CALL LIGHT AT REACH.
--- NOTE | 2019-12-13 12:33 | Diagnostic Imaging Report ---
TECHNIQUE: Magnetic resonance imaging of the RIGHT foot was performed WITHOUT injected contrast. HISTORY: Right foot pain COMPARISON: None available. DISCUSSION: Post infectious/surgical change involving the third MTP joint with absence of the metatarsal head and phalangeal base with chronic appearing signal abnormality. Healed fractures of the second metacarpal and proximal phalanx. Chronic erosive change about the IP joint of the hallux. Plantar foot ulceration adjacent to the third MTP joint with probable osteomyelitis of the metatarsal head and proximal phalanx. Additional subcortical edema of the second metatarsal head without T1 replacement. Ill-defined soft tissue phlegmon/abscess extending plantar to the second metatarsal head and extending in the first intermetatarsal space and dorsal forefoot extending along the tenosynovium of the extensor tendon predominantly of the second toe. IMPRESSION: Multifocal chronic change as above most prominent involving the fourth toe. Soft tissue ulceration plantar to the third MTP joint with probable adjacent osteomyelitis. Ill-defined soft tissue phlegmon/abscess involving the forefoot as above. Signed by: Dr. Wilbert Bowen M.D. on 12/13/2019 12:31 PM
--- NOTE | 2019-12-13 15:37 | NUR ---
PATIENT IN BED RESTING WITH HEAD OF BED ELEVATED. CALL LIGHT AT REACH.
--- NOTE | 2019-12-13 19:30 | NUR ---
Patient received lying in bed. AAO x 3. No complaints of pain. No signs of respiratory distress. Bed locked and in lowest position. Bed rails up x 2. Patient instructed to call for assistance when needed. Call light within reach.
--- NOTE | 2019-12-13 19:53 | Progress Note ---
DATE: 12/13/2019 The patient seen today, resting comfortably on rounds. He did have his MRI today, which is positive for multifocal chronic changes with osteomyelitis as previously suspected by plain film. There are additional areas of soft tissue phlegmon/abscess involving the forefoot. He will need I and D with possible amputation of the forefoot after revascularization. He is scheduled for revascularization by Dr. Olguin tomorrow morning. Pending outcome there, we will possibly proceed with surgical procedures on the right foot aimed at eradicating the significant infection in the right foot on morning. The patient otherwise remains in his normal state of health with no significant changes, a very high risk extremity at this point. JENSEN Canela/CASEY /[id number]
--- NOTE | 2019-12-13 19:58 | Progress Note ---
DATE: 12/13/2019 Cardiology Progress Note SUBJECTIVE: The patient denies chest pain or shortness of breath. OBJECTIVE: VITAL SIGNS: Temperature 96.8 degrees, pulse 76, respiratory rate 18, blood pressure 90/49, and oxygen saturation 97% on room air. GENERAL: Awake, alert, in no acute distress. LUNGS: Clear to auscultation bilaterally. No wheezes or crackles. CARDIOVASCULAR: Normal rate. Irregularly irregular. No murmur. Normal S1 and S2. ABDOMEN: Soft and nontender. EXTREMITIES: Dressing present on the right lower extremity. No edema. CARDIAC MEDICATIONS: Apixaban 2.5 mg p.o. q.12 hours, metoprolol tartrate 50 mg p.o. q.12 hours, and amiodarone 200 mg p.o. with dialysis. LABORATORY DATA: WBC 15.36, hemoglobin 10.7, hematocrit 32.8, and platelets 289. Sodium 138, potassium 4.2, chloride 99, CO2 29, BUN 27, and creatinine 5.02. Telemetry was personally reviewed and interpreted, revealing atrial fibrillation. IMPRESSION: 1. Right foot wound with osteomyelitis. 2. Peripheral arterial disease. 3. Atrial fibrillation. 4. End-stage renal disease. 5. Hypertension. 6. Diastolic heart failure. RECOMMENDATIONS: Arterial Doppler showed severe peripheral arterial disease. He will need repeat peripheral angiogram and possible intervention to assist with wound healing. The patient can hold apixaban for procedures. Continue current cardiac medications. Titrate if heart rate is persistently elevated. Thank you for this consult. We will continue to follow. Qiana Broderick MD ABS/MODL /[id number]
[2019-12-13] MEDS: ALBUTEROL SULF 0.083% NEB SOLN 3 ML NEB NEB PRN (20:40)
[2019-12-14] VITALS: BP 102/55
--- NOTE | 2019-12-14 02:07 | NUR ---
Patient informed about recommended surgical procedure-----Bilateral peripheral angiogram and possible percutaneous peripheral intervention. Patient verbalized understanding and voluntarily signed "Disclosure and Consent" form.
--- NOTE | 2019-12-14 07:00 | NUR ---
Patient resting comfortably. Walking rounds done. Shift report given to oncoming nurse.
[2019-12-14] MEDS: INSULIN LISPRO 100 UNIT/1 ML 3ML VIAL SQ SCH ×4 (07:30→20:20)
[2019-12-14 07:55] VITALS: BP 108/54
[2019-12-14] MEDS: ALBUTEROL SULF 0.083% NEB SOLN 3 ML NEB NEB PRN (08:10)
[2019-12-14 08:51] VITALS: BP 108/54
[2019-12-14] MEDS: MEROPENEM 500MG/ NS 50ML 50 ML IV SCH (08:57)
[2019-12-14] MEDS: PANTOPRAZOLE 40 MG 10ML VIAL IV SCH ×2 (08:58→19:03)
[2019-12-14] MEDS: METOPROLOL TARTRATE 50 MG TAB PO SCH ×2 (09:00→20:23)
[2019-12-14] MEDS: GLIMEPIRIDE 2 MG TAB PO SCH (09:01)
[2019-12-14] MEDS: FOLIC ACID/CYANOCOB/PYRIDOXINE TAB PO SCH (09:01)
[2019-12-14] MEDS: CHOLECALCIFEROL 1,000 UNIT TAB PO SCH (09:01)
[2019-12-14] MEDS ORDERED: MIDAZOLAM HCL 2 MG/2 ML VIAL ONE ×3 (09:33→10:43)
[2019-12-14] MEDS ORDERED: HEPARIN SOD/SOD CHLORIDE 2,000 ML ONE (09:33)
[2019-12-14] MEDS ORDERED: SODIUM CHLORIDE 0.9% 1000ML 1,000 ML ONE (09:33)
[2019-12-14] MEDS ORDERED: HEPARIN SOD (PORCINE) 1000 UNIT/ML 30ML ONE (09:33)
[2019-12-14] MEDS ORDERED: IOPAMIDOL 300MG/ML 100 ML INFUS..BTL IV ONE (09:33)
[2019-12-14] MEDS ORDERED: LIDOCAINE HCL 2% LOCAL 20 ML VIAL ONE (09:33)
[2019-12-14] MEDS ORDERED: FENTANYL CITRATE/PF 100MCG/2 ML INJ ONE ×2 (09:33→10:43)
[2019-12-14] MEDS ORDERED: NITROGLYCERIN/D5W 200 MCG/ML 250 ML ONE (09:34)
--- NOTE | 2019-12-14 10:11 | Progress Note ---
DATE: 12/14/2019 SUBJECTIVE: The patient did well overnight. No new issues. MRI was reviewed showing an abscess formation in the forefoot area. OBJECTIVE: VITAL SIGNS: Temperature 98.9, pulse 101, blood pressure 102/55, and sats 92% room air. GENERAL: He is no apparent distress, lying in bed. NECK: Supple. CARDIOVASCULAR: Irregularly regular. LUNGS: Clear to auscultation bilaterally. ABDOMEN: Good bowel sounds. Soft and nontender. EXTREMITIES: No clubbing or cyanosis. Foot are bandaged. ASSESSMENT AND PLAN: 1. Atrial fibrillation. Continue with current care per Cardiology. 2. Right foot osteomyelitis. Continue with current care per Podiatry and continue with antibiotics per Infectious Disease. 3. Peripheral arterial disease. The patient is scheduled to have intervention today by Dr. Olguin. 4. End-stage renal disease. Continue with dialysis. 5. Anemia. Continue to monitor. 6. Leukocytosis. Continue to monitor. 7. Hypertension. Continue with current care and monitoring. 8. Diabetes. Continue with current care and monitoring. Please see hospital chart for details. MD ROSHAN Muñoz/MODL /[id number]
[2019-12-14] MEDS ORDERED: VERAPAMIL HCL 2.5 MG/ML 2 ML VIAL ONE (10:28)
[2019-12-14] MEDS ORDERED: DIPHENHYDRAMINE HCL INJ 50 MG/ML VIAL ONE (10:30)
[2019-12-14] MEDS ORDERED: CLOPIDOGREL BISULFATE 75 MG TAB ONE (11:10)
[2019-12-14] MEDS ORDERED: ASPIRIN 325 MG TAB ONE (11:10)
[2019-12-14 11:57] VITALS: BP 103/52
[2019-12-14] MEDS ORDERED: SODIUM CHLORIDE 0.9% 1000ML 2,000 ML ONE (13:08)
[2019-12-14] MEDS ORDERED: SODIUM CHLORIDE 0.9% 1000ML 2,000 ML IV PRN (14:15)
[2019-12-14] MEDS ORDERED: ALBUMIN 25% 12.5GM 0.25 GM/ML BTL IV PRN (14:15)
[2019-12-14] MEDS ORDERED: SODIUM CHLORIDE 0.9% 250ML 750 ML IV PRN (14:15)
[2019-12-14 15:58] VITALS: BP 120/81
--- NOTE | 2019-12-14 17:00 | NUR ---
spoke with Dr. Jorge, received verbal orders to change consent form to "I&D right foot with amputation of 2nd toe on right foot"
--- NOTE | 2019-12-14 17:02 | NUR ---
discussed pt education about the procedure Dr. Jorge will perform tomorrow. explained to the patient that Dr. Jorge wants to perform I&D or right foot and amputate the 2nd and 3rd toe on the right foot as well. pt stated that Dr. Jorge only discussed with the pt about amputating the 2nd toe. the patient stated that he will not do anything, including sign the consent, until he talks with Dr. Jorge. paged Dr. Jorge and waiting for call back.
--- NOTE | 2019-12-14 17:32 | NUR ---
discussed new consent form with patient, pt is refusing to sign the consent form at this time, pt education rendered.
--- NOTE | 2019-12-14 18:08 | Progress Note ---
DATE: 12/14/2019 Cardiology Progress Note SUBJECTIVE: The patient denies chest pain or shortness of breath. He was seen on hemodialysis, status post peripheral angiogram today. OBJECTIVE: VITAL SIGNS: Temperature 97.7 degrees, pulse 100, respiratory rate 20, blood pressure 103/52, and oxygen saturation 100% on room air. GENERAL: Awake, alert, in no acute distress. LUNGS: Clear to auscultation bilaterally. No wheezes or crackles. CARDIOVASCULAR: Normal rate, irregularly irregular. No murmur. Normal S1, S2. ABDOMEN: Soft and nontender. EXTREMITIES: Dressing present on the right lower extremity. No edema. CARDIAC MEDICATIONS: Metoprolol tartrate 50 mg p.o. q.12 hours. LABORATORY DATA: None today. Telemetry was personally reviewed and interpreted, revealing atrial fibrillation. IMPRESSION: 1. Right foot wound with osteomyelitis. 2. Peripheral arterial disease. 3. Atrial fibrillation. 4. End-stage renal disease. 5. Hypertension. 6. Diastolic heart failure. RECOMMENDATIONS: The patient had peripheral angiogram with LOG SCALER to the right BONIFACIO. He will need to resume Eliquis pending completion of surgery. Start Plavix if agreeable from podiatry standpoint given plan for surgical intervention. Continue current cardiac medications otherwise. Monitor the patient closely on telemetry. Volume management per Nephrology given end-stage renal disease. Thank you for this consult. We will continue to follow. Qiana Broderick MD ABS/MODL /[id number]
--- NOTE | 2019-12-14 18:38 | Operative Report ---
DATE OF PROCEDURE: 12/14/2019 SURGEON: Andrew Cordero MD INDICATIONS FOR THE PROCEDURE: Critical limb ischemia. PREPROCEDURE ASSESSMENT: The risks, benefits, and alternatives to the treatment were explained to the patient prior to the procedure. The patient was deemed to be an appropriate candidate for moderate sedation. Informed consent was obtained and documented in the medical record. MEDICATIONS: Please see nursing notes for medications administered throughout the procedure. PROCEDURES PERFORMED: 1. Peripheral angiography, bilateral lower extremities. 2. Abdominal aortography. 3. Catheter placement, third order. 4. Atherectomy and percutaneous transluminal angioplasty of right anterior tibial artery. 5. Secondary thrombectomy. 6. Vascular closure device. 7. Moderate sedation supervised by myself administered by certified nurse under my direct supervision for 90 minutes. PROCEDURE DETAILS: The patient was brought to the Cardiac Catheterization Laboratory in a fasting state. Left groin was prepped and draped in a sterile fashion. A 6-Haitian sheath was inserted into the left common femoral artery using modified Seldinger technique and micropuncture equipment without any significant difficulty. A 5-Haitian Omni Flush catheter was positioned over a wire into the abdominal aorta and abdominal aortogram was performed and this demonstrated no significant disease of bilateral iliac systems. A [place] Advantage wire was then passed through the Omni Flush catheter and advanced into the contralateral iliac system. The Omni Flush catheter was then advanced over the [place] Advantage wire into the right common femoral artery. Multiple digital subtraction angiograms of the right lower extremity were performed at each level, this demonstrated diffusely diseased 90% to 99% stenosis with severe calcification of the proximal and mid anterior tibial artery, otherwise moderate plaquing without any severe obstructive PAD of right lower extremity. 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 The Omni Flush catheter was removed over the [place] Advantage wire and 6-Haitian short sheath was exchanged for a 65 cm destination sheath, which was advanced over the [place] Advantage wire into the right lower extremity. IV boluses of heparin were given until ACT near 300 was achieved. Right anterior tibial artery was wired using a run-through wire and Teleport microcatheter. Then, run-through wire was exchanged for Viper wire and arthrectomy of the right anterior tibial artery was performed using a CSI 1.25 solid bur at low, low and medium setting. There was some residual thrombus after the initial arthrectomy seen in the proximal and mid anterior tibial artery. We advanced the balloon over the wire into the mid anterior tibial artery and then removed the wire and performed secondary thrombectomy through the balloon catheter. The run-through wire was then reinserted into the right dorsalis pedal and performed balloon angioplasty in the right anterior tibial artery using 2.5 x 220 mm balloon deployed at nominal pressures for 3 minutes. This resulted in excellent angiographic results with ROSY-3 flow to the dorsalis pedis artery. There was no residual thrombus, dissection, or spasm. Destination sheath was then exchanged over a Glidewire for a short 6-Haitian sheath. Angiography of the left lower extremity was performed through the short 6-Haitian sheath. The access site was deemed to be appropriate for vascular closure device and was closed using ProGlide vascular closure device without any complication. The patient overall tolerated the procedure well. There were no immediate complications. A 325 mg of aspirin and 300 mg Plavix loaded at the end of the case. SIGNIFICANT FINDINGS: Bilateral iliac systems demonstrate [id number] plaquing without any significant obstructive peripheral arterial disease. Right lower extremity demonstrate moderate plaquing diffusely throughout the right SFA and posterior tibial artery with 90% to 99% stenosis with severe calcification of the right anterior tibial artery in the proximal and midportion. Left lower extremity demonstrates [id number] diffuse plaquing of the left SFA and popliteal with severe 90% focal lesion of the distal SFA and proximal popliteal artery. The right anterior tibial artery has 80% lesion in the proximal portion and posterior tibial artery appears to be chronically occluded. Peroneal artery difficult to visualize due to metal ashly from prior orthopedic surgery. GRAFTS AND IMPLANTS: ProGlide vascular closure device. SPECIMENS REMOVED: None. COMPLICATIONS: None. ESTIMATED BLOOD LOSS: 20 mL. FINAL RECOMMENDATIONS: 1. Continue wound care. Right lower extremity per Podiatry and primary team. 2. Continue aspirin 81 mg daily for life and Plavix 75 mg daily for 3 months. 3. Follow up in clinic 2 weeks post discharge. MD BUTCH Harper/LEONARDAL /[id number]
[2019-12-14 20:00] VITALS: BP 120/55
--- NOTE | 2019-12-14 20:49 | Progress Note ---
DATE: 12/14/2019 The patient is seen today status post arthrectomy, left and right lower extremities. Apparently, Dr. Cordero performed the bilateral peripheral angiogram with percutaneous peripheral intervention today without complications. The patient is currently on dialysis and is drowsy. The foot evaluated and has large abscess draining with a foul odor from the first intermetatarsal space involving the second metatarsophalangeal joint. There is a wound on the plantar aspect of the third met head as well as severe foot infection. He is likely to need transmetatarsal amputation. However, I and D will be performed tomorrow to clean the area and allow it to further demarcate. Amputation of the second digit with deep wound debridement and incision and drainage, possible amputation of the third metatarsal will be performed at the patient's consent. The patient has agreed to accept all risks inherent to the procedure and understands this is a high-risk extremity and he is at risk for possible limb loss. JENSEN Canela/CASEY /[id number]
[2019-12-15] VITALS (9 sets, daily range): BP systolic 81–145; BP diastolic 51–66
[2019-12-15 06:34] LABS: BASOPHILS # (AUTO) 0.1 (0.0-0.1); BASOPHILS % 0.4 % (0.0-1.0); EOSINOPHILS # (AUTO) 0.1 (0.0-0.4); EOSINOPHILS % 0.5 % (0.0-6.0); HEMATOCRIT 30.1 % (38.2-49.6); HEMOGLOBIN 9.7 g/dL (14.0-18.0); LYMPHOCYTES # (AUTO) 1.1 (1.0-3.2); LYMPHOCYTES % 6.8 % (18.0-39.1); MEAN CORPUSCULAR HEMOGLOBIN 31.2 pg (28-32); MEAN CORPUSCULAR HGB CONC 32.2 g/dL (31-35); MEAN CORPUSCULAR VOLUME 96.8 fL (81-99); MONOCYTES # (AUTO) 1.2 (0.2-0.8); MONOCYTES % 7.4 % (4.4-11.3); NEUTROPHILS # (AUTO) 12.8 (2.1-6.9); NEUTROPHILS % 82.2 % (38.7-80.0); PLATELET COUNT 288 x10e3/uL (140-360); RED BLOOD COUNT 3.11 x10e6/uL (4.3-5.7); RED CELL DISTRIBUTION WIDTH 16.5 % (11.7-14.4)
[2019-12-15 06:49] LABS: ALBUMIN 2.5 g/dL (3.5-5.0); ALBUMIN/GLOBULIN RATIO 0.6 (0.8-2.0); ANION GAP 16.1 mmol/L (8-16); CALCIUM 9.2 mg/dL (8.4-10.2); CREATININE, SERUM 4.25 mg/dL (0.72-1.25); POTASSIUM 4.1 mmol/L (3.5-5.1)
--- NOTE | 2019-12-15 07:00 | NUR ---
bedside rounds done. pt is resting in bed, no s/s of distress. call light within reach and bed safety in place.
[2019-12-15] MEDS: INSULIN LISPRO 100 UNIT/1 ML 3ML VIAL SQ SCH ×4 (07:30→21:00)
[2019-12-15] MEDS: ALBUTEROL SULF 0.083% NEB SOLN 3 ML NEB NEB PRN (07:48)
[2019-12-15] MEDS: DEXTROSE 50% SYRINGE 50 ML IV PRN (08:00)
[2019-12-15] MEDS: GLIMEPIRIDE 2 MG TAB PO SCH (08:00)
--- NOTE | 2019-12-15 08:04 | NUR ---
mattie Nagel, spoke with pino at answering service. pt refused to sign consent form overnight, and refused again this morning with AM nurse
[2019-12-15] MEDS: FOLIC ACID/CYANOCOB/PYRIDOXINE TAB PO SCH (08:23)
[2019-12-15] MEDS: CHOLECALCIFEROL 1,000 UNIT TAB PO SCH (08:23)
[2019-12-15] MEDS: PANTOPRAZOLE 40 MG 10ML VIAL IV SCH ×2 (09:00→17:53)
[2019-12-15] MEDS: MEROPENEM 500MG/ NS 50ML 50 ML IV SCH (09:00)
[2019-12-15] MEDS: CLOPIDOGREL BISULFATE 75 MG TAB PO SCH (09:00)
[2019-12-15] MEDS: METOPROLOL TARTRATE 50 MG TAB PO SCH ×2 (09:00→21:00)
--- NOTE | 2019-12-15 11:56 | Progress Note ---
DATE: 12/15/2019 SUBJECTIVE: The patient had revascularization done yesterday without complications overnight. No new issues. OBJECTIVE: VITAL SIGNS: Temperature 100, pulse 101, blood pressure 122/62, and sats 94%. GENERAL: No apparent distress, lying in bed. CARDIOVASCULAR: Regular rate and rhythm. LUNGS: Decreased breath sounds bilaterally, but no rhonchi or wheezing. ABDOMEN: Good bowel sounds. Soft, nontender, and nondistended. EXTREMITIES: No clubbing or cyanosis. Right foot is still malodorous and bandaged. NEUROLOGICAL: Nonfocal. ASSESSMENT AND PLAN: 1. Osteomyelitis. Continue with antibiotics. 2. Peripheral arterial disease. Continue with current care per Cardiology after intervention. 3. Foot wound. The patient is scheduled for surgery for I and D and debridement, possible partial amputation. 4. Diabetes. Continue with current care monitoring. 5. End-stage renal disease. Continue current care per Renal. 6. Anemia. We will continue to monitor. 7. Leukocytosis. Continue monitoring. Check a CBC. Please see hospital chart for full details. MD ROSHAN Muñoz/CASEY /[id number]
[2019-12-15] MEDS ORDERED: SODIUM CHLORIDE 0.9% 500ML 500 ML ONE (13:11)
[2019-12-15] MEDS ORDERED: BUPIVACAINE HCL 0.5% INJ 30 ML VIAL INJ ONE (13:16)
[2019-12-15] MEDS ORDERED: BACITRACIN 50,000 UNIT VIAL ONE (13:17)
[2019-12-15] MEDS ORDERED: MEROPENEM 1GM 0 ML IV ONE (13:43)
[2019-12-15] MEDS ORDERED: LIDOCAINE HCL 2% LOCAL INJ 5 ML SDV VIAL INJ ONE (13:55)
[2019-12-15] MEDS ORDERED: PROPOFOL IV EMULSION 10 MG/ML 20 ML VIAL ONE (13:55)
--- NOTE | 2019-12-15 14:30 | NUR ---
pt back in room from surgery. no s/s of distress. pt was amble to transfer from stretcher to hospital bed with minimal assist. no n/v and no c/o pain. call light within reach and instructed pt to call RN for help. bed safety in place.
--- NOTE | 2019-12-15 16:15 | NUR ---
Nutrition Screen Note RD Recommendation for Physician: -Recommend renal diet when medically appropriate Plan of Care: RD following, monitoring for tolerance and adequacy Nutrition reason for involvement: Length of stay Primary Diagnose(s): cellulitis PMH: HTN, diabetes, chronic renal disease, CHF Ht: 71 in Wt: 192 lb BMI: 26.8 kg/m2 IBW: 172lb RD Assessment: (12/15/19) Chart reviewed. Labs and meds reviewed. Pt is an 83 year old male admitted with cellulitis. Per chart, pt is also receiving dialysis. Pt was sleeping at time of visit and there were no family members present at bedside. Pt was NPO at time of visit, but RN reports pt was previously eating >50% of meals. Pt is now on a cardiac diet. Will continue to monitor. Current Diet: cardiac diet Malnutrition Evaluation (12/15/19) The patient does not meet criteria for a specified degree of malnutrition at this time. Will re-evaluate at follow-up as appropriate. Unable to assess Diet Education Needs Assessment: RD is available for diet education as needed Nutrition Care Level: low Signed: Lelia Thurston, RD, LD
[2019-12-15] MEDS: HYDROCODONE/APAP 5MG-325MG TAB PO PRN (17:53)
--- NOTE | 2019-12-15 18:09 | Progress Note ---
DATE: 12/15/2019 Cardiology Progress Note SUBJECTIVE: The patient denies chest pain or shortness of breath. OBJECTIVE: VITAL SIGNS: Temperature 98.7 degrees, pulse 100, respiratory rate 17, blood pressure 100/58, and oxygen saturation 99% on room air. GENERAL: Awake, alert, in no acute distress. LUNGS: Clear to auscultation bilaterally. No wheezes or crackles. CARDIOVASCULAR: Normal rate. Irregularly irregular. No murmur. Normal S1 and S2. ABDOMEN: Soft and nontender. EXTREMITIES: Surgical dressing present on the right lower extremity. No edema. CARDIAC MEDICATIONS: Plavix 75 mg p.o. daily, metoprolol tartrate 50 mg p.o. q.12 hours, and amiodarone 200 mg p.o. on dialysis days. LABORATORY DATA: WBC 15.5, hemoglobin 9.7, hematocrit 30.1, and platelets 288. Sodium 139, potassium 4.1, chloride 100, CO2 27, BUN 17, and creatinine 4.25. Telemetry was personally reviewed and interpreted, revealing atrial fibrillation. IMPRESSION: 1. Right foot wound with osteomyelitis. 2. Peripheral arterial disease. 3. Atrial fibrillation. 4. End-stage renal disease, on hemodialysis. 5. Hypertension. 6. Diastolic heart failure. RECOMMENDATIONS: The patient had peripheral angiogram with CARTOGRAPHIC AIDE of the right BONIFACIO. He will need to resume Eliquis pending completion of surgery. Once hemostasis is achieved, start Plavix. Continue current cardiac medications otherwise. Monitor the patient closely on telemetry. Monitor wound healing. Volume management per Nephrology given end-stage renal disease. Thank you for this consult. We will continue to follow. Qiana Broderick MD ABS/MODL /[id number]
[2019-12-15] MEDS ORDERED: FENTANYL CITRATE/PF 100MCG/2 ML INJ ONE (18:24)
[2019-12-15] MEDS ORDERED: KETAMINE HCL INJ 50 MG/ML 10 ML VIAL ONE (18:24)
[2019-12-15] MEDS ORDERED: MIDAZOLAM HCL 2 MG/2 ML VIAL ONE (18:24)
--- NOTE | 2019-12-15 19:25 | NUR ---
Patient received lying in bed. AAO x 3. No acute distress noted. Call light within reach.
--- NOTE | 2019-12-15 23:50 | NUR ---
Dr. Cabrera notified of low BP of 84/50 and HR of 68. No new orders received. stated to continue to monitor patient since he is asymptomatic.
[2019-12-16] VITALS (8 sets, daily range): BP systolic 84–114; BP diastolic 46–62
--- NOTE | 2019-12-16 02:21 | Operative Report ---
DATE OF PROCEDURE: 12/15/2019 SURGEON: Javy Jorge DPM PREOPERATIVE DIAGNOSIS: Abscess cellulitis of the right foot. POSTOPERATIVE DIAGNOSIS: Abscess cellulitis of the right foot. OPERATION: Incision and drainage with deep wound debridement, right foot and ankle. ANESTHESIA: General. HEMOSTASIS: None used. PROCEDURE IN DETAIL: The patient was taken to the operating room in a mildly sedated state, placed on the operating table in supine position. Following induction of general anesthetic, the right lower extremity was elevated and placed on the operating table. After prepped and draped in the usual aseptic manner, we utilized Betadine prep. A linear longitudinal incision was made overlying the 1st intermetatarsal space where a significant amount of purulent exudate was extruded. This area had tremendous necrotic tissue down to bone at the 2nd metatarsophalangeal joint as much as possible was debrided out. The patient has refused amputation at this point, however, these deep tissues are minimally viable. The plantar aspect of the 3rd metatarsal was approached and a large void was present plantarly, this was also debrided approximately 2 cm in circumference, the dorsal 1st interspace lesion had been approximately 4 cm in length. A more proximal incision overlying the dorsal lateral aspect of the right foot was made approximately 4 cm in length as well. Necrotic tissue and purulent exudate were extruded. Deep wound culture and sensitivities were taken of all soft tissues. The extension of the cellulitis and purulence was noted to extend up beyond the ankle joint level and a separate incision was made at that level and significant purulent exudate was once again drained from the area and necrotic tissue debrided. It was all cultured. Deep wounds were irrigated with Simpulse and packed open with iodoform. There was minimal, but some bleeding at all incision sites. The patient's extremity has questionable viability and may require further debridement or more proximal amputation if it fails to progress from this aggressive incision and drainage today. General surgical consultation should be considered. JENSEN Canela/CASEY /[id number]
--- NOTE | 2019-12-16 07:00 | NUR ---
bedside report done. pt is alert resting in bed, no s/s of distress. call light within reach and instructed pt to call for help. bed alarm is on.
--- NOTE | 2019-12-16 07:07 | NUR ---
Walking rounds done. Patient resting comfortably. BBSR given to oncoming nurse.
[2019-12-16] MEDS: INSULIN LISPRO 100 UNIT/1 ML 3ML VIAL SQ SCH ×4 (07:30→21:00)
[2019-12-16] MEDS: METOPROLOL TARTRATE 50 MG TAB PO SCH ×2 (07:43→20:43)
[2019-12-16] MEDS: GLIMEPIRIDE 2 MG TAB PO SCH (08:00)
[2019-12-16] MEDS: ALBUTEROL SULF 0.083% NEB SOLN 3 ML NEB NEB PRN ×2 (08:31→09:50)
[2019-12-16] MEDS: PANTOPRAZOLE 40 MG 10ML VIAL IV SCH ×2 (08:52→17:04)
[2019-12-16] MEDS ORDERED: SODIUM CHLORIDE 0.9% 250ML 250 ML ONE (09:00)
[2019-12-16] MEDS: FOLIC ACID/CYANOCOB/PYRIDOXINE TAB PO SCH (09:02)
[2019-12-16] MEDS: CHOLECALCIFEROL 1,000 UNIT TAB PO SCH (09:02)
[2019-12-16] MEDS: MEROPENEM 500MG/ NS 50ML 50 ML IV SCH (09:02)
[2019-12-16] MEDS: CLOPIDOGREL BISULFATE 75 MG TAB PO SCH (09:02)
[2019-12-16] MEDS: HYDROCODONE/APAP 5MG-325MG TAB PO PRN (09:03)
--- NOTE | 2019-12-16 09:38 | NUR ---
sales service professional prepping for HD. provided NS 1L X2 and copy of labs per request.
--- NOTE | 2019-12-16 13:02 | Progress Note ---
DATE: 12/16/2019 SUBJECTIVE: The patient slept well overnight. No new complaints. He has some pain in the right foot area. He is status post I and D by Dr. Jorge yesterday with no apparent complications. OBJECTIVE: VITAL SIGNS: Temperature 99.3, pulse 95, blood pressure 99/55, and sats 92%. GENERAL: He is in no apparent distress lying in bed. CARDIOVASCULAR: Regular rate and rhythm. LUNGS: Clear to auscultation. ABDOMEN: Good bowel sounds. Soft and nontender. EXTREMITIES: No clubbing or cyanosis. Right foot is wrapped. ASSESSMENT AND PLAN: 1. Sepsis secondary to osteomyelitis of the right foot. Continue current care per Infectious Disease, Dr. Jimenez. Unfortunately prognosis is very poor for this patient, especially in regard to salvage of his leg. 2. Peripheral arterial disease. Continue current care per Cardiology since recent revascularization. 3. End-stage renal disease. Continue dialysis per Renal. 4. Anemia. Continue to monitor. 5. Leukocytosis. Continue to monitor. 6. Diabetes. Continue foot care and treatment. 7. Hypertension. Continue with his Midodrine. Please see hospital chart for full details. MD ROSHAN Muñoz/CASEY /[id number]
[2019-12-16] MEDS: MIDODRINE HCL 5 MG TABLET PO SCH (15:10)
--- NOTE | 2019-12-16 16:09 | Progress Note ---
DATE: 12/16/2019 SUBJECTIVE: The patient denies chest pain or shortness of breath. He was seen with hemodialysis. OBJECTIVE: VITAL SIGNS: Temperature 96.6 degrees, pulse 94, respiratory 19, blood pressure 102/56, oxygen saturation 96% on 2 L. GENERAL: Awake, alert, in no acute distress. LUNGS: Clear to auscultation bilaterally. No wheeze or crackles. CARDIOVASCULAR: Normal rate, irregularly irregular rhythm. No murmur. Normal S1, S2. ABDOMEN: Soft, nontender. EXTREMITIES: Surgical dressing present on the right lower extremity. 1+ edema noted right lower extremity, none on the left. CARDIAC MEDICATIONS: Plavix 75 mg p.o. daily. LABORATORY DATA: None today. Telemetry was personally reviewed and interpreted revealing atrial fibrillation. IMPRESSION: 1. Right foot wound with osteomyelitis. 2. Peripheral arterial disease. 3. Atrial fibrillation with end-stage renal disease, on hemodialysis. 4. Hypertension with diastolic heart failure. RECOMMENDATIONS: The patient had peripheral angiogram with GLOVE MAKER of the right ADA. Resume anticoagulation once hemostasis is achieved from surgical standpoint. Continue Plavix. Continue current cardiac medications, monitor the patient closely on telemetry. Given asymmetric edema, we will obtain right lower extremity venous Doppler. Volume management per Nephrology given end-stage renal disease. Thank you for this consult. We will continue to follow. Qiana Broderick MD ABS/MODL /[id number]
[2019-12-16] MEDS ORDERED: VANCOMYCIN 1GM/NS 250 ML 250 ML IV SCH (17:00)
[2019-12-16] MEDS: SEVELAMER CARBONATE 800 MG TAB PO SCH (17:04)
--- NOTE | 2019-12-16 19:25 | NUR ---
Patient received sitting up in bed. AAO x 3. No pain or respiratory noted. Call light within reach.
[2019-12-17] VITALS (7 sets, daily range): BP systolic 101–111; BP diastolic 53–62
--- NOTE | 2019-12-17 07:01 | Progress Note ---
DATE: 12/17/2019 SUBJECTIVE: The patient did well overnight. No new issues. OBJECTIVE: VITAL SIGNS: Temperature 98.5, pulse 89, blood pressure 103/56, sats 93%. GENERAL: No apparent distress, lying in bed. CARDIOVASCULAR: Regular rate and rhythm. LUNGS: Clear to auscultation bilaterally. ABDOMEN: Good bowel sounds. Soft, nontender. EXTREMITIES: No clubbing or cyanosis. Right foot is bandaged. NEUROLOGIC: Nonfocal. ASSESSMENT AND PLAN: 1. Osteomyelitis of the right foot with sepsis. Continue with current care. 2. End-stage renal disease. Continue dialysis per Renal. 3. Diabetes. Continue current care. 4. Leukocytosis. Continue to monitor. 5. Anemia. Continue to monitor p.r.n. 6. Reflux disease. Continue with his proton pump inhibitor. Please see hospital chart for full details. MD ROSHAN Muñoz/CASEY /[id number]
--- NOTE | 2019-12-17 07:45 | NUR ---
the pt. has received his 0730 med pass and denies pain or discomfort at this time .
[2019-12-17] MEDS: SEVELAMER CARBONATE 800 MG TAB PO SCH ×3 (09:10→17:51)
[2019-12-17] MEDS: GLIMEPIRIDE 2 MG TAB PO SCH (09:10)
[2019-12-17] MEDS: MEROPENEM 500MG/ NS 50ML 50 ML IV SCH (09:10)
[2019-12-17] MEDS: CLOPIDOGREL BISULFATE 75 MG TAB PO SCH (09:11)
[2019-12-17] MEDS: FOLIC ACID/CYANOCOB/PYRIDOXINE TAB PO SCH (09:11)
[2019-12-17] MEDS: CHOLECALCIFEROL 1,000 UNIT TAB PO SCH (09:11)
[2019-12-17] MEDS: METOPROLOL TARTRATE 50 MG TAB PO SCH ×2 (09:11→20:59)
[2019-12-17] MEDS: PANTOPRAZOLE 40 MG 10ML VIAL IV SCH ×2 (09:12→17:51)
[2019-12-17 09:35] LABS: BASOPHILS # (AUTO) 0.1 (0.0-0.1); BASOPHILS % 0.5 % (0.0-1.0); EOSINOPHILS # (AUTO) 0.2 (0.0-0.4); EOSINOPHILS % 1.7 % (0.0-6.0); HEMATOCRIT 29.2 % (38.2-49.6); HEMOGLOBIN 9.2 g/dL (14.0-18.0); LYMPHOCYTES # (AUTO) 1.3 (1.0-3.2); LYMPHOCYTES % 9.5 % (18.0-39.1); MEAN CORPUSCULAR HEMOGLOBIN 30.8 pg (28-32); MEAN CORPUSCULAR HGB CONC 31.5 g/dL (31-35); MEAN CORPUSCULAR VOLUME 97.7 fL (81-99); MONOCYTES % 7.4 % (4.4-11.3); NEUTROPHILS # (AUTO) 10.7 (2.1-6.9); NEUTROPHILS % 76.9 % (38.7-80.0); PLATELET COUNT 310 x10e3/uL (140-360); RED BLOOD COUNT 2.99 x10e6/uL (4.3-5.7); RED CELL DISTRIBUTION WIDTH 16.1 % (11.7-14.4)
[2019-12-17 09:57] LABS: ALBUMIN 2.4 g/dL (3.5-5.0); ALBUMIN/GLOBULIN RATIO 0.5 (0.8-2.0); ANION GAP 14.2 mmol/L (8-16); CALCIUM 9.2 mg/dL (8.4-10.2); CREATININE, SERUM 4.35 mg/dL (0.72-1.25); POTASSIUM 4.2 mmol/L (3.5-5.1)
[2019-12-17] MEDS: INSULIN LISPRO 100 UNIT/1 ML 3ML VIAL SQ SCH ×4 (10:19→21:30)
--- NOTE | 2019-12-17 17:23 | Progress Note ---
DATE: 12/17/2019 SUBJECTIVE: Mr. Guzman is doing well. There are no new complaints. He is feeling better. REVIEW OF SYSTEMS: HEENT: Negative. PULMONARY: Negative. CARDIAC: Negative. EXTREMITIES: His foot is doing better. PHYSICAL EXAMINATION: GENERAL: He is currently alert, oriented, does not seem to be in acute distress. VITAL SIGNS: Stable. Currently afebrile. HEENT: Not icteric. NECK: Supple. CHEST: Clear. HEART: S1, S2. No murmur. ABDOMEN: Soft. IMPRESSION: 1. Osteomyelitis of the foot with Staph aureus burden. 2. End-stage renal disease, on hemodialysis. 3. Leukocytosis, is getting better. 4. Debility. 5. Peripheral vascular disease. 6. Right foot osteomyelitis. 7. Atrial fibrillation. The patient is currently on meropenem, vancomycin. We will change him to Ancef. I am aware of his allergy to penicillin. We will observe clinically. We will follow. MD IVETTE Lino/CASEY /[id number]
[2019-12-17] MEDS: CEFAZOLIN SOD 1 GM/NS 50ML 50 ML IV SCH (17:51)
[2019-12-17] MEDS: ALBUTEROL SULF 0.083% NEB SOLN 3 ML NEB NEB PRN (20:35)
[2019-12-18] VITALS (9 sets, daily range): BP systolic 101–113; BP diastolic 51–62
--- NOTE | 2019-12-18 03:24 | Progress Note ---
DATE: 12/18/2019 SUBJECTIVE: The patient did well overnight. No new complaints. OBJECTIVE: VITAL SIGNS: Temperature 98.5, pulse 74, blood pressure 107/51, sats are 97%. GENERAL: No apparent distress, lying in bed. NECK: Supple. CARDIOVASCULAR: Regular rate and rhythm. LUNGS: Clear to auscultation bilaterally. ABDOMEN: Good bowel sounds. Soft, nontender. EXTREMITIES: No clubbing or cyanosis. Right foot is wrapped. ASSESSMENT AND PLAN: 1. Sepsis secondary to osteomyelitis of the right foot. Continue current care per Infectious Disease and Dr. Jorge. 2. Anemia. Continue to monitor p.r.n. 3. Leukocytosis. Continue to monitor p.r.n. 4. End-stage renal disease. Continue with dialysis per Renal. 5. Diabetes. Continue with current care and monitoring. Please see hospital chart for full details. MD ROSHAN Muñoz/CASEY /[id number]
--- NOTE | 2019-12-18 07:06 | NUR ---
bedside report received. pt is alert resting in bed, no s/s of distress. call light within reach and instructed pt to call RN for help. bed alarm is on
[2019-12-18] MEDS: INSULIN LISPRO 100 UNIT/1 ML 3ML VIAL SQ SCH ×4 (07:30→21:00)
[2019-12-18] MEDS: ALBUTEROL SULF 0.083% NEB SOLN 3 ML NEB NEB PRN ×2 (08:20→19:30)
[2019-12-18] MEDS: METOPROLOL TARTRATE 50 MG TAB PO SCH ×2 (08:54→21:59)
[2019-12-18] MEDS: SEVELAMER CARBONATE 800 MG TAB PO SCH ×3 (08:55→17:36)
[2019-12-18] MEDS: CLOPIDOGREL BISULFATE 75 MG TAB PO SCH (08:55)
[2019-12-18] MEDS: FOLIC ACID/CYANOCOB/PYRIDOXINE TAB PO SCH (08:55)
[2019-12-18] MEDS: GLIMEPIRIDE 2 MG TAB PO SCH (08:55)
[2019-12-18] MEDS: CHOLECALCIFEROL 1,000 UNIT TAB PO SCH (08:55)
[2019-12-18] MEDS: PANTOPRAZOLE 40 MG 10ML VIAL IV SCH ×2 (08:56→17:36)
--- NOTE | 2019-12-18 12:35 | NUR ---
Educated on IMM letter. Verbalized understanding and signed. Copy to transition folder at bedside, original placed in chart
[2019-12-18] MEDS: CEFAZOLIN SOD 1 GM/NS 50ML 50 ML IV SCH (15:15)
[2019-12-19] VITALS (7 sets, daily range): BP systolic 95–119; BP diastolic 50–57
[2019-12-19 06:32] LABS: BASOPHILS # (AUTO) 0.1 (0.0-0.1); BASOPHILS % 0.6 % (0.0-1.0); EOSINOPHILS # (AUTO) 0.2 (0.0-0.4); EOSINOPHILS % 1.9 % (0.0-6.0); HEMATOCRIT 27.8 % (38.2-49.6); HEMOGLOBIN 8.6 g/dL (14.0-18.0); LYMPHOCYTES # (AUTO) 1.1 (1.0-3.2); LYMPHOCYTES % 9.1 % (18.0-39.1); MEAN CORPUSCULAR HEMOGLOBIN 30.2 pg (28-32); MEAN CORPUSCULAR HGB CONC 30.9 g/dL (31-35); MEAN CORPUSCULAR VOLUME 97.5 fL (81-99); MONOCYTES # (AUTO) 1.1 (0.2-0.8); MONOCYTES % 9.6 % (4.4-11.3); NEUTROPHILS # (AUTO) 8.4 (2.1-6.9); NEUTROPHILS % 73.1 % (38.7-80.0); PLATELET COUNT 388 x10e3/uL (140-360); RED BLOOD COUNT 2.85 x10e6/uL (4.3-5.7); RED CELL DISTRIBUTION WIDTH 16.1 % (11.7-14.4)
[2019-12-19 07:00] LABS: ALBUMIN 2.3 g/dL (3.5-5.0); ALBUMIN/GLOBULIN RATIO 0.5 (0.8-2.0); ANION GAP 17.1 mmol/L (8-16); CALCIUM 9.1 mg/dL (8.4-10.2); CREATININE, SERUM 7.52 mg/dL (0.72-1.25); POTASSIUM 5.1 mmol/L (3.5-5.1)
--- NOTE | 2019-12-19 07:00 | NUR ---
received bedside report. pt is sleeping, no s/s of distress. call light within reach and bed safety in place.
[2019-12-19] MEDS: ALBUTEROL SULF 0.083% NEB SOLN 3 ML NEB NEB PRN ×2 (07:30→17:23)
[2019-12-19] MEDS: INSULIN LISPRO 100 UNIT/1 ML 3ML VIAL SQ SCH ×5 (07:30→21:39)
[2019-12-19] MEDS: METOPROLOL TARTRATE 50 MG TAB PO SCH ×2 (07:42→21:00)
[2019-12-19] MEDS: PANTOPRAZOLE 40 MG 10ML VIAL IV SCH ×2 (07:45→17:29)
[2019-12-19] MEDS: GLIMEPIRIDE 2 MG TAB PO SCH (07:46)
[2019-12-19] MEDS: SEVELAMER CARBONATE 800 MG TAB PO SCH ×3 (08:00→17:29)
[2019-12-19] MEDS: FOLIC ACID/CYANOCOB/PYRIDOXINE TAB PO SCH (09:00)
[2019-12-19] MEDS: CLOPIDOGREL BISULFATE 75 MG TAB PO SCH (09:00)
[2019-12-19] MEDS: CHOLECALCIFEROL 1,000 UNIT TAB PO SCH (09:00)
--- NOTE | 2019-12-19 09:15 | Progress Note ---
DATE: 12/18/2019 Cardiology Progress Note SUBJECTIVE: No major events overnight. OBJECTIVE: VITAL SIGNS: Temperature afebrile, pulse 87, respiratory rate 20, blood pressure 111/53 saturating 94% on nasal cannula. GENERAL: Elderly man, in no acute distress. CARDIOVASCULAR: Irregular rate and rhythm. No murmurs, rubs, or gallops. LUNGS: Clear to auscultate anteriorly. ABDOMEN: Soft, nontender, nondistended. NEURO AND PSYCH: Alert and oriented to person, place and time. Normal affect. EXTREMITIES: Right lower extremity with dressing in place, warm and well perfused. No significant edema. INPATIENT MEDICATIONS: Reviewed. LABORATORY DATA: Reviewed. improving. TELEMETRY DATA: Reviewed. Shows rate controlled atrial fibrillation. ASSESSMENT: 1. Right foot osteomyelitis. 2. Peripheral arterial disease, status post intervention to the right anterior tibial artery. 3. Atrial fibrillation. 4. End-stage renal disease on hemodialysis. 5. Hypertension. RECOMMENDATIONS: Continue aspirin and Plavix, given recent peripheral intervention, atrial fibrillation is rate controlled. Continue Plavix. Currently not on full-dose anticoagulation for AFib pending procedures. Start apixaban 2.5 b.i.d. once all procedures completed. Thank you for this consult. We will continue to follow. MD BUTCH Harper/CASEY /[id number]
--- NOTE | 2019-12-19 14:59 | NUR ---
spoke with Dr. Nagel's nurse and inquired to when the doctor would be rounding on the patient. the RN stated that Dr. Nagel is out of town until next week and that they would notify Dr. Parsons to round on the patient
--- NOTE | 2019-12-19 15:09 | NUR ---
spoke with Dr. Parsons and received new dressing change orders. stated that she will be rounding early tomorrow morning 12/20/2019
[2019-12-19] MEDS: CEFAZOLIN SOD 1 GM/NS 50ML 50 ML IV SCH (15:20)
[2019-12-19] MEDS: ACETAMINOPHEN 325 MG TAB PO PRN (16:00)
--- NOTE | 2019-12-19 16:06 | NUR ---
wound care done per Dr. Parsons' orders
--- NOTE | 2019-12-19 20:43 | Progress Note ---
DATE: 12/19/2019 Cardiology Progress Note SUBJECTIVE: The patient denies chest pain. He is complaining of shortness of breath. OBJECTIVE: VITAL SIGNS: Temperature 96.9 degrees, pulse 95, respiratory rate 17, blood pressure 116/55, and oxygen saturation 98% on 2 L nasal cannula. GENERAL: Awake, alert, in no acute distress. LUNGS: Clear to auscultation bilaterally. No wheezes or crackles. CARDIOVASCULAR: Normal rate. Irregularly irregular rhythm. No murmur. Normal S1 and S2. ABDOMEN: Soft and nontender. EXTREMITIES: 1+ pitting edema on the right noted with dressing present. No edema on the left. CARDIAC MEDICATIONS: Plavix 75 mg p.o. daily and metoprolol tartrate 50 mg p.o. q.12 hours. LABORATORY DATA: WBC 11.48, hemoglobin 8.6, hematocrit 27.8, and platelets 388. Sodium 133, potassium 5.1, chloride 93, CO2 28, BUN 35, and creatinine 7.52. Telemetry was personally reviewed and interpreted, revealing atrial fibrillation, rate controlled. IMPRESSION: 1. Right foot osteomyelitis. 2. Peripheral arterial disease, status post intervention of the right anterior tibial artery. 3. Atrial fibrillation. 4. End-stage renal disease, on hemodialysis. 5. Hypertension. RECOMMENDATIONS: Continue current cardiac medications. Given recent peripheral intervention, atrial fibrillation is rate controlled. Currently, anticoagulation is held due to plan for further Podiatry procedures. Resume once no further procedures are planned and the patient is accepted for anticoagulation from a surgical standpoint. Volume management per Nephrology given end-stage renal disease. The patient is complaining of shortness of breath today. Check BNP and chest x-ray. Thank you for this consult. We will continue to follow. Qiana Broderick MD ABS/MODL /[id number]
--- NOTE | 2019-12-19 22:02 | Diagnostic Imaging Report ---
EXAMINATION: CHEST SINGLE (PORTABLE) INDICATION: Dyspnea. COMPARISON: Chest radiograph 12/09/2019. FINDINGS: TUBES and LINES: None. LUNGS: Bilateral perihilar and interstitial opacities. Multifocal airspace opacities throughout the left lung and in the right lower lung. PLEURA: No pleural effusion or pneumothorax. HEART AND MEDIASTINUM: The cardiomediastinal silhouette is moderately enlarged. BONES AND SOFT TISSUES: No acute osseous lesion. Soft tissues are unremarkable. UPPER ABDOMEN: No free air under the diaphragm. IMPRESSION: Multifocal opacities may represent pulmonary edema and/or multifocal pneumonia. Cardiomegaly. Signed by: Dr. Ignacio Quick MD on 12/19/2019 9:59 PM
[2019-12-20] VITALS (8 sets, daily range): BP systolic 102–120; BP diastolic 51–59
[2019-12-20] MEDS: ALBUTEROL SULF 0.083% NEB SOLN 3 ML NEB NEB PRN ×2 (06:30→20:00)
[2019-12-20] MEDS: BUDESONIDE/FORMOTEROL 160/4.5MCG INHALER INH PRN (06:48)
--- NOTE | 2019-12-20 07:00 | NUR ---
BEDSIDE SHIFT REPORT RECEIVED FROM THE AUTO OVERHAULER RN. EDUCATED PT ABOUT FALL PRECAUTIONS. PT VERBALIZED UNDERSTANDING. CALL LIGHT WITH IN EASY REACH. INSTRUCTED PT TO USE CALL LIGHT FOR ALL THE NEEDS. BED IS LOW AND LOCKED. SIDE RAILS X2. PT DENIES NEEDS AT THIS TIME.
--- NOTE | 2019-12-20 07:10 | NUR ---
Bedside report and rounds completed with oncoming nurse. Patient in bed with call light within reach. No issues or concerns noted.
[2019-12-20] MEDS: INSULIN LISPRO 100 UNIT/1 ML 3ML VIAL SQ SCH ×4 (07:30→21:00)
[2019-12-20] MEDS: FOLIC ACID/CYANOCOB/PYRIDOXINE TAB PO SCH (09:00)
[2019-12-20] MEDS: METOPROLOL TARTRATE 50 MG TAB PO SCH ×2 (09:00→21:29)
[2019-12-20] MEDS: CHOLECALCIFEROL 1,000 UNIT TAB PO SCH (09:00)
[2019-12-20] MEDS: CLOPIDOGREL BISULFATE 75 MG TAB PO SCH (09:00)
[2019-12-20] MEDS: SEVELAMER CARBONATE 800 MG TAB PO SCH ×3 (09:00→16:26)
[2019-12-20] MEDS: GLIMEPIRIDE 2 MG TAB PO SCH (09:00)
[2019-12-20] MEDS: PANTOPRAZOLE 40 MG 10ML VIAL IV SCH ×2 (10:00→16:26)
--- NOTE | 2019-12-20 10:00 | NUR ---
RIGHT FOOT WET TO DRY BETADINE DRESSING CHANGE COMPLETED.
[2019-12-20] MEDS: ACETAMINOPHEN 325 MG TAB PO PRN (12:00)
--- NOTE | 2019-12-20 12:16 | Progress Note ---
DATE: 12/20/2019 Cardiology Progress Note SUBJECTIVE: The patient denies chest pain or shortness of breath. OBJECTIVE: VITAL SIGNS: Temperature 97.2 degrees, pulse 87, respiratory rate 18, blood pressure 120/57, and oxygen saturation 97% on room air. GENERAL: Awake, alert, in no acute distress. LUNGS: Clear to auscultation bilaterally. No wheezes or crackles. CARDIOVASCULAR: Normal rate, irregularly irregular rhythm. No murmur. Normal S1, S2. ABDOMEN: Soft, nontender. EXTREMITIES: 1+ pitting edema on the right with dressing present. No edema in the left. CARDIAC MEDICATIONS: Plavix 75 mg p.o. daily, metoprolol tartrate 50 mg p.o. q.12 hours, amiodarone 200 mg on dialysis days. LABORATORY DATA: None today. TELEMETRY: Personally reviewed and interpreted, revealing atrial fibrillation, rate controlled. IMPRESSION: 1. Right foot osteomyelitis. 2. Peripheral artery disease, status post intervention of the right anterior tibial artery. 3. Atrial fibrillation. 4. End-stage renal disease, on hemodialysis. 5. Hypertension. RECOMMENDATIONS: 1. Continue current cardiac medications. 2. Continue aspirin and Plavix given recent peripheral intervention. 3. His atrial fibrillation is rate controlled. Continue metoprolol at current dose. 4. If no further podiatry procedures are planned, recommend resuming anticoagulation for CVA prophylaxis. 5. Volume management per Nephrology given end-stage renal disease. 6. The patient would benefit from further ultrafiltration given elevated BNP. Thank you for this consult. We will continue to follow. Qiana Broderick MD ABS/MODL /[id number]
--- NOTE | 2019-12-20 14:00 | NUR ---
PAGED DR. RUSSELL AND INFORMED PT K LEVEL 5.1. NO NEW ORDERS RECEIVED.
--- NOTE | 2019-12-20 15:12 | Progress Note ---
DATE: 12/20/2019 SUBJECTIVE: The patient was seen at bedside. Dressings were removed. There is localized erythema and edema. At this point, there is no streaking erythema. No ascending lymphangitis. On the dorsal aspect of the foot, the extensor tendon is visualized. On the dorsal and plantar aspect of the intermetatarsals, the tendons were visualized in the capsule. No new abscess is palpable. His white blood count is trending down, before surgery, he had 16.59. He is down now to 11.48. He is currently on IV antibiotics and is being managed by Infectious Disease. Protective threshold is absent. Pedal pulses are diminished. Capillary filling time is delayed. No pedal hair growth. ASSESSMENT: 1. Diabetic foot ulcer, grade 3, right dorsal ankle. 2. Diabetic foot ulcer grade 3, second intermetatarsal space. 3. Diabetes with neuropathy, PVD. PLAN: At this point, he had refused an amputation. He had surgical intervention debridement done to the wounds. We will continue with aggressive wound care, Betadine, wet-to-dry daily by nursing. Continue on IV antibiotics. If he fails this treatment, he is going to need a proximal amputation and he is aware of this. We will continue to follow. Dictated by Josephine Louise DPM JENSEN Canela/MODRupinder /[id number]
[2019-12-20] MEDS: CEFAZOLIN SOD 1 GM/NS 50ML 50 ML IV SCH (16:00)
--- NOTE | 2019-12-20 16:00 | NUR ---
PT BLOOD SUGAR IS LOW. 8 FL OZ APPLE JUICE GIVEN. PT IS AAOX4. NO DISTRESS NOTED. PT DENIES NEEDS AT THIS TIME.
--- NOTE | 2019-12-20 17:00 | NUR ---
PT BLOOD SUGAR RECHECKED. 81 NOTED. PT DENIES NEEDS AT THIS TIME.
--- NOTE | 2019-12-20 17:30 | NUR ---
ASHLEYD DR. SALAZAR OFFICE .
--- NOTE | 2019-12-20 19:00 | NUR ---
BEDSIDE SHIFT REPORT GIVEN TO THE FACTORY HAND RN. PT DENIED FURTHER NEEDS.
--- NOTE | 2019-12-20 22:00 | NUR ---
Received report from nurse.
--- NOTE | 2019-12-20 22:09 | NUR ---
Report given to nurse and care transferred. Patient stable, no issues or concerns.
[2019-12-21] VITALS (8 sets, daily range): BP systolic 97–121; BP diastolic 52–62
--- NOTE | 2019-12-21 07:00 | NUR ---
BEDSIDE SHIFT REPORT RECEIVED FROM THE COMMISSION SALES ASSOCIATE RN. EDUCATED PT ABOUT FALL PRECAUTIONS. PT VERBALIZED UNDERSTANDING. CALL LIGHT WITH IN EASY REACH. INSTRUCTED PT TO USE CALL LIGHT FOR ALL THE NEEDS. BED IS LOW AND LOCKED. SIDE RAILS X2. PT DENIES NEEDS AT THIS TIME.
[2019-12-21] MEDS: INSULIN LISPRO 100 UNIT/1 ML 3ML VIAL SQ SCH ×4 (07:30→21:00)
--- NOTE | 2019-12-21 07:30 | NUR ---
PT BLOOD SUGAR 48. PT IS AAOX4. 8 FL OZ APPLE JUICE GIVEN. PT DENIES NEEDS AT THIS TIME.
--- NOTE | 2019-12-21 08:00 | NUR ---
RECHECKED PT BLOOD SUGAR 77 NOTED. PT IS AOOX4. DENIES NEEDS AT THIS TIME.
[2019-12-21] MEDS: ALBUTEROL SULF 0.083% NEB SOLN 3 ML NEB NEB PRN ×5 (08:29→23:10)
[2019-12-21] MEDS: FOLIC ACID/CYANOCOB/PYRIDOXINE TAB PO SCH (08:29)
[2019-12-21] MEDS: PANTOPRAZOLE 40 MG 10ML VIAL IV SCH ×2 (08:29→16:04)
[2019-12-21] MEDS: BUDESONIDE/FORMOTEROL 160/4.5MCG INHALER INH PRN ×2 (08:29→19:55)
[2019-12-21] MEDS: SEVELAMER CARBONATE 800 MG TAB PO SCH ×3 (08:29→16:30)
[2019-12-21] MEDS: CHOLECALCIFEROL 1,000 UNIT TAB PO SCH (08:30)
[2019-12-21] MEDS: CLOPIDOGREL BISULFATE 75 MG TAB PO SCH (08:30)
--- NOTE | 2019-12-21 08:30 | NUR ---
INSURANCE AGENT AT BEDSIDE.
[2019-12-21] MEDS: METOPROLOL TARTRATE 50 MG TAB PO SCH ×2 (08:31→21:00)
[2019-12-21] MEDS: GLIMEPIRIDE 2 MG TAB PO SCH (09:00)
--- NOTE | 2019-12-21 12:14 | NUR ---
ORDER RECEIVED FOR HOME IV ABX; ANCEF 1GM QD X 8WEEKS. CM MET W THE PT AT THE BEDSIDE. DISCUSSED HOME IV ABX AND POSSIBLE WOUND CARE. INFORMED THE CUPOLA MECHANIC WOULD MAKE RECOMMENDATIONS FOR THE WOUND CARE PIECE. PROVIDED CHOICE. PT STATES HE WOULD LIKE A [employer] IN NETWORK W HIS INSURANCE. REFERRAL FAXED TO [facility] @ OFF: [phone] / FAX: [phone]. WILL AWAIT CALL BACK TO SEE IF THEY ACCEPT HIS PART D PLAN; [facility]. NOTIFIED DEACON SHANNON. STATES LONG IT IS AN HMO PLAN BUT THEY WILL HAVE TO RUN.
--- NOTE | 2019-12-21 12:50 | NUR ---
Nutrition Screen Note RD Recommendation for Physician: -Continue current diet per MD. -Consider renal diet, 1800 ADA diet pending lab trends. Plan of Care: RD following, monitoring for tolerance and adequacy. Beneprotein BID Nutrition reason for involvement: f/u Primary Diagnose(s): cellulitis PMH: HTN, diabetes, chronic renal disease, CHF Ht: 71 in Wt: 192 lb BMI: 26.8 kg/m2 IBW: 172lb RD Assessment: 12/20: Follow up: Pt was seen resting in bed, finished breakfast tray at bedside. The pt reported a good appetite, consumed 100% of his breakfast. The pt also reported his has been receiving beneprotein BID (not ordered by RD). Pt has refused amputation and had surgical intervention debridement done to his wounds per MD note. No pressure ulcer type wound recorded. Pt denied N/V/C/D/chewing or swallowing issues. LBM: 12/19. Pt had no other questions regarding diet. Chart reviewed. POC GM: 55-81. Pt is on glimepiride and insulin. Will continue to monitor. (12/15/19) Chart reviewed. Labs and meds reviewed. Pt is an 83 year old male admitted with cellulitis. Per chart, pt is also receiving dialysis. Pt was sleeping at time of visit and there were no family members present at bedside. Pt was NPO at time of visit, but RN reports pt was previously eating >50% of meals. Pt is now on a cardiac diet. Will continue to monitor. Current Diet: cardiac diet Malnutrition Evaluation (12/15/19) The patient does not meet criteria for a specified degree of malnutrition at this time. Will re-evaluate at follow-up as appropriate. Unable to assess Diet Education Needs Assessment: RD is available for diet education as needed Nutrition Care Level: low Signed:Martha Guerrero, RD, LD
--- NOTE | 2019-12-21 13:00 | NUR ---
DIALYSIS COMPLETED. 3 L REMOVED PER THE RATE SUPERVISOR.
[2019-12-21] MEDS: ACETAMINOPHEN 325 MG TAB PO PRN (14:19)
[2019-12-21] MEDS: CEFAZOLIN SOD 1 GM/NS 50ML 50 ML IV SCH (15:55)
[2019-12-21] MEDS ORDERED: ONDANSETRON HCL 4 MG ORAL DISINTEGRATING TAB PO PRN (16:15)
--- NOTE | 2019-12-21 17:54 | NUR ---
CALL RECEIVED FROM VLAD SHANNON. STATES THE PT IS NOT ABLE TO AFFORD $149.26/WEEK. CM MET W THE PT AT THE BEDSIDE. DISCUSSED SNF AND LTAC AN OPTION. EXPLAINED THE PURPOSE OF EACH. PT WILL NEED 8 WEEKS OF ABX. PT IS NOT HAPPY BUT STATES HE IS ON A FIXED INCOME. DISCUSSED OPTIONS W THE PT AND BEDSIDE NURSE, SHAWN. SHAWN WILL CONTACT THE MD FOR LTAC OR SNF ORDER. CM WILL F/U IN THE AM.
--- NOTE | 2019-12-21 18:55 | NUR ---
BEDSIDE SHIFT REPORT GIVEN TO THE INSTRUCTIONAL TECHNOLOGY FACILITATOR RN. PT DENIED FURTHER NEEDS.
--- NOTE | 2019-12-21 20:19 | Progress Note ---
DATE: 12/21/2019 Cardiology Progress Note SUBJECTIVE: The patient denies chest pain or shortness of breath. OBJECTIVE: VITAL SIGNS: Temperature 98.2 degrees, pulse 106, respiratory rate 16, blood pressure 97/52, and oxygen saturation 100% on 2 L nasal cannula. GENERAL: Awake and alert, in no acute distress. LUNGS: Clear to auscultation bilaterally. No wheeze or crackles. CARDIOVASCULAR: Normal rate. Irregularly irregular rhythm. No murmur. Normal S1 and S2. ABDOMEN: Soft and nontender. EXTREMITIES: 1+ pitting edema on the right with dressing present. Erythema is noted. No edema on the left. CARDIAC MEDICATIONS: Plavix 75 mg p.o. daily, metoprolol tartrate 50 mg p.o. q.12 hours, and amiodarone 200 mg p.o. dialysis days. LABORATORY DATA: None today. Telemetry personally reviewed and interpreted, revealing atrial fibrillation. IMPRESSION: 1. Right foot osteomyelitis. 2. Peripheral artery disease, status post intervention of the right anterior tibial artery. 3. Atrial fibrillation. 4. End-stage renal disease, on hemodialysis. 5. Hypertension. RECOMMENDATIONS: Continue current cardiac medications. Continue aspirin and Plavix given recent peripheral intervention. Atrial fibrillation is for the most part rate controlled. Continue to monitor. Continue metoprolol at current doses. Monitor blood pressure closely. If no further procedures are planned, recommend resuming anticoagulation for CVA prophylaxis. Volume management per Nephrology given end-stage renal disease. Given elevated BNP, would recommend further ultrafiltration. Thank you for this consult. We will continue to follow. Qiana Broderick MD ABS/MODL /[id number]
--- NOTE | 2019-12-21 20:30 | NUR ---
ARDIAC MEDICATIONS: Plavix 75 mg p.o. daily, metoprolol tartrate 50 mg p.o. q.12 hours, and amiodarone 200 mg p.o. dialysis days. LABORATORY DATA: None today. Telemetry personally reviewed and interpreted, revealing atrial fibrillation. IMPRESSION: 1. Right foot osteomyelitis. 2. Peripheral artery disease, status post intervention of the right anterior tibial artery. 3. Atrial fibrillation. 4. End-stage renal disease, on hemodialysis. 5. Hypertension. [id number]
--- NOTE | 2019-12-21 20:58 | NUR ---
HR rechecked 103 b/min. Patient is asymptomatic.
--- NOTE | 2019-12-21 23:19 | Progress Note ---
DATE: 12/21/2019 SUBJECTIVE: Mr. Guzman is doing better. There are no new complaints. REVIEW OF SYSTEMS: HEENT: Negative. PULMONARY: Negative. CARDIAC: Negative. PHYSICAL EXAMINATION: VITAL SIGNS: Stable. Temperature is 98.2, heart rate 106. HEENT: He is not icteric. NECK: Supple. CHEST: Clear. HEART: S1, S2. No S3, S4, or murmur. ABDOMEN: Soft. LABORATORY DATA: Reviewed. IMPRESSION: 1. Right foot osteomyelitis. 2. Diabetes mellitus with neuropathy. 3. Atrial fibrillation. 4. End-stage renal disease. PLAN: 1. Continue with antibiotic as ordered. 2. We will follow. MD IVETTE Lino/CASEY /[id number]
[2019-12-22] VITALS (8 sets, daily range): BP systolic 106–125; BP diastolic 51–60
[2019-12-22] MEDS: ALBUTEROL SULF 0.083% NEB SOLN 3 ML NEB NEB PRN ×4 (04:05→19:35)
[2019-12-22] MEDS: INSULIN LISPRO 100 UNIT/1 ML 3ML VIAL SQ SCH ×5 (07:30→21:00)
[2019-12-22] MEDS: GLIMEPIRIDE 2 MG TAB PO SCH (09:00)
[2019-12-22] MEDS: SEVELAMER CARBONATE 800 MG TAB PO SCH ×3 (09:00→17:09)
--- NOTE | 2019-12-22 09:06 | NUR ---
ORDER RECEIVED FOR LTAC. MET W THE PT AT THE BEDSIDE DISCUSS LTAC. PT STATES HE DIDN'T WANT TO GO INTO ANOTHER FACILITY FOR 8 WEEKS. INQUIRED ABOUT PAYING LATER FOR HOME ABX. INFORMED HIM THAT WOULD BE BETWEEN HIM AND THE COMPANY. STATES HE NEEDED TO PAY HIS MORTGAGE AND MOVE HIS CAR HOME. STATES HIS SISTER WOULD NOT BE ABLE TO SIGN A MONEY ORDER FOR HIS MORTGAGE AND SHE DOES NOT DRIVE. STATES HE WILL CALL HIS NEIGHBORS TO P/U HIS CAR. ENCOURAGED PT TO CALL HIS MORTGAGE COMPANY AND PAY OVER THE PHONE. CHOICE LETTER WAS SIGNED FOR [facility]. PT STATES HE WILL SIGN MOT LATER. [facility] WAS NOTIFIED.
[2019-12-22] MEDS: METOPROLOL TARTRATE 50 MG TAB PO SCH ×2 (09:26→20:20)
[2019-12-22] MEDS: PANTOPRAZOLE 40 MG 10ML VIAL IV SCH ×2 (09:26→16:35)
[2019-12-22] MEDS: CLOPIDOGREL BISULFATE 75 MG TAB PO SCH (09:26)
[2019-12-22] MEDS: FOLIC ACID/CYANOCOB/PYRIDOXINE TAB PO SCH (09:26)
[2019-12-22] MEDS: CHOLECALCIFEROL 1,000 UNIT TAB PO SCH (09:27)
--- NOTE | 2019-12-22 10:00 | NUR ---
JASON SALVADOR REGARDING IF PT NEED PICC LINE OR CENTRAL LINE. PT IS PENDING FOR LTAC EVAL.
--- NOTE | 2019-12-22 13:00 | NUR ---
PAGEMickey SALVADOR REGARDING PICC LINE OR CENTRAL LINE UPDATE. NO DECISION YET PER THE PA.
--- NOTE | 2019-12-22 13:03 | NUR ---
RECEIVED CALL FROM [facility]. STATES THEY ARE NOT ACCEPTING ANY SITE NEUTRAL PT'S AT THIS TIME AND THE PT DOES NOT HAVE ANY ICU DAYS LEFT. STATES SHE HAS NOTIFIED DR. MORRISON. CALL TO NORY RUFF @ [phone]. REFERRAL LINE COORDINATOR WILL HAVE SOMEONE GIVE ME A CALL BACK.
--- NOTE | 2019-12-22 14:14 | NUR ---
NOTIFIED PT [facility] NOT ACCEPTING HIM BECAUSE HE HAD NO ICU DAYS LEFT. AGREED FOR REFERRAL TO BE SENT TO [facility]. PT STATES HE HAD NOT PAID HIS MORTGAGE YET. SPOKE Tawny MERRITT @ [facility]. REQUESTED REFERRAL BE FAXED OVER. FAXED TO [facility] @ OFF: [phone] / FAX: [phone].
--- NOTE | 2019-12-22 15:07 | Progress Note ---
DATE: 12/22/[address] Javy Jorge. SUBJECTIVE: The patient was seen at bedside. He denies any pain, any nausea. He is doing well. His white blood count continues to trend down. It started at 16.56. It is down to 11.48 on 12/18. The wound culture was positive for Streptococcus viridans. He is currently on IV antibiotics by Infectious Disease. The dressing was removed today. He has various ulcers to the lower extremity. He has a plantar sub 3rd at the 1st intermetatarsal space, the dorsal aspect of the foot, and the dorsal aspect of the ankle. All this to the right foot. The ulcers are down to the level of the tendon. The bone is exposed. The seropurulent drainage is very scant now. He is beginning to develop granular tissue surrounding the ulcers. No palpable abscess was noted today. No purulence was expressed for the area. The erythema and edema are beginning to subside. The wound is slowly improving. Protective threshold is absent on intrinsic minus type of foot. ASSESSMENT: Diabetic foot ulcers, sub 3rd, dorsal ankle, dorsal foot and 1st interspace. PLAN: Discussed treatment with the patient. At this point, the wounds are responding slowly to IV antibiotic and local wound care. Continue Betadine wet-to-dry. In the future, he may need further debridement. He is also aware if the wounds do not respond, he is going to need a BKA secondary to the level of infection and the depth of the wound. At this point, he wants to continue to try to save his foot, so we will continue local wound care. Continue IV antibiotic. JENSEN Munoz/CASEY /[id number]
[2019-12-22] MEDS: CEFAZOLIN SOD 1 GM/NS 50ML 50 ML IV SCH (15:53)
--- NOTE | 2019-12-22 16:30 | NUR ---
NEW ORDER RECEIVED FOR CENTRAL LINE PER DR. AGUIAR. OKAY TO HAVE CENTRAL LINE PER DR. RUSSELL.
--- NOTE | 2019-12-22 17:58 | NUR ---
PAGED RADIOLOGY REGARDING CENTRAL LINE PLACEMENT. PER RADIOLOGY DR. DOWD, PT MIGHT NEED TUNNELLED CATHETER FOR ORDNANCE HANDLER IV ABX BUT DEPENDS THE LTAC FACILITY PT GO PER THE DR. INFORMED THE SAME TO CASE MANAGEMENT AND STEFFEN HOUSE SUPERVISOR. CASE MANAGEMENT WILL CONFIRM THE PT ACCEPTANCE TO THE LTAC FACILITY TOMORROW.
--- NOTE | 2019-12-22 18:55 | NUR ---
BEDSIDE SHIFT REPORT GIVEN TO THE QUARRY EQUIPMENT OPERATOR RN. PT DENIED FURTHER NEEDS.
--- NOTE | 2019-12-22 20:54 | Progress Note ---
DATE: 12/22/2019 Cardiology Progress Note SUBJECTIVE: The patient denies chest pain. He is complaining of shortness of breath. OBJECTIVE: VITAL SIGNS: Temperature 96.5 degrees, pulse 97, respiratory rate 20, blood pressure 125/55, and oxygen saturation 100% on room air. GENERAL: Awake and alert, in no acute distress. LUNGS: Clear to auscultation bilaterally. No wheezes or crackles. CARDIOVASCULAR: Normal rate. Irregularly irregular. No murmur. Normal S1 and S2. ABDOMEN: Soft and nontender. EXTREMITIES: 1+ pitting edema on the right. Erythema and ulcers are noted on the right lower extremity. CARDIAC MEDICATIONS: Plavix 75 mg p.o. daily, metoprolol tartrate 50 mg p.o. q.12 hours, and amiodarone 200 mg p.o. before dialysis. LABORATORY DATA: None today. IMPRESSION: 1. Right foot osteomyelitis. 2. Peripheral artery disease, status post intervention of the right anterior tibial artery. 3. Atrial fibrillation. 4. End-stage renal disease, on hemodialysis. 5. Hypertension. RECOMMENDATIONS: Continue current cardiac medications. Continue aspirin and Plavix given recent peripheral intervention. Continue to monitor the patient on telemetry. Heart rate is for the most part adequately controlled, we will continue to monitor. If no further procedures are planned, recommend resuming anticoagulation for CVA prophylaxis. Volume management per Nephrology given end-stage renal disease. The patient would benefit from further ultrafiltration given his elevated BNP. Thank you for this consult. We will continue to follow. Qiana Broderick MD ABS/MODL /[id number]
[2019-12-23] VITALS: BP_SYST 106; BP_SYST 107; BP_DIAS 51; BP_DIAS 58
[2019-12-23 06:39] LABS: BASOPHILS # (AUTO) 0.1 (0.0-0.1); BASOPHILS % 0.9 % (0.0-1.0); EOSINOPHILS # (AUTO) 0.2 (0.0-0.4); EOSINOPHILS % 1.7 % (0.0-6.0); HEMATOCRIT 25.5 % (38.2-49.6); HEMOGLOBIN 7.9 g/dL (14.0-18.0); LYMPHOCYTES % 9.2 % (18.0-39.1); MEAN CORPUSCULAR HEMOGLOBIN 30.3 pg (28-32); MEAN CORPUSCULAR VOLUME 97.7 fL (81-99); MONOCYTES % 8.9 % (4.4-11.3); NEUTROPHILS # (AUTO) 8.5 (2.1-6.9); PLATELET COUNT 374 x10e3/uL (140-360); RED BLOOD COUNT 2.61 x10e6/uL (4.3-5.7); RED CELL DISTRIBUTION WIDTH 15.7 % (11.7-14.4)
[2019-12-23 07:00] LABS: ALBUMIN 2.3 g/dL (3.5-5.0); ALBUMIN/GLOBULIN RATIO 0.5 (0.8-2.0); ALKALINE PHOSPHATASE 129 IU/L (40-150); ANION GAP 16.2 mmol/L (8-16); BLOOD UREA NITROGEN 24 mg/dL (7-26); BUN/CREATININE RATIO 4 (6-25); CALCIUM 9.1 mg/dL (8.4-10.2); CARBON DIOXIDE 27 mmol/L (22-29); CHLORIDE 98 mmol/L (98-107); CREATININE, SERUM 5.66 mg/dL (0.72-1.25); EST GLOMERULAR FILTRATION RATE 10 ML/MIN (60-); POTASSIUM 5.2 mmol/L (3.5-5.1); SODIUM 136 mmol/L (136-145)
[2019-12-23 07:05] LABS: ALANINE AMINOTRANSFERASE < 6 IU/L (0-55); GLUCOSE 41 mg/dL (74-118)
--- NOTE | 2019-12-23 07:05 | NUR ---
BEDSIDE REPORT RECEIVED FROM PM NURSE. PT AWAKE, ALERT, NO SIGNS OF DISTRESS. WILL CONTINUE TO MONITOR.
[2019-12-23] MEDS: INSULIN LISPRO 100 UNIT/1 ML 3ML VIAL SQ SCH ×3 (07:30→16:30)
[2019-12-23] MEDS: ALBUTEROL SULF 0.083% NEB SOLN 3 ML NEB NEB PRN ×2 (07:31→11:18)
[2019-12-23 07:32] VITALS: BP 106/58
[2019-12-23] MEDS: BUDESONIDE/FORMOTEROL 160/4.5MCG INHALER INH PRN (07:35)
--- NOTE | 2019-12-23 07:38 | NUR ---
INFORMED BY TECH PT'S FINGERSTICK BLOOD SUGAR WAS 54; WENT TO PT'S ROOM AND FOUND PT SITTING UP IN BED, AWAKE, ALERT, ORIENTED X3, SPEAKING FULL SENTENCES, EATING A FRUIT CUP. WILL RECHECK BLOOD SUGAR.
[2019-12-23 08:00] VITALS: BP 107/58
[2019-12-23] MEDS: SEVELAMER CARBONATE 800 MG TAB PO SCH ×3 (08:00→18:20)
[2019-12-23] MEDS: GLIMEPIRIDE 2 MG TAB PO SCH (08:00)
[2019-12-23] MEDS: METOPROLOL TARTRATE 50 MG TAB PO SCH (08:03)
--- NOTE | 2019-12-23 08:27 | NUR ---
PT AWAKE, ALERT, SITTING UP, EATING BREAKFAST. RECHECKED BLOOD SUGAR, CURRENTLY 76.
[2019-12-23] MEDS: PANTOPRAZOLE 40 MG 10ML VIAL IV SCH ×2 (09:00→18:19)
[2019-12-23 11:37] VITALS: BP 107/47
--- NOTE | 2019-12-23 12:46 | Progress Note ---
DATE: 12/23/2019 Cardiology Progress Note SUBJECTIVE: The patient denies chest pain or shortness of breath. OBJECTIVE: VITAL SIGNS: Temperature 97.3 degrees, pulse 103, respiratory rate 17, blood pressure 107/58, oxygen saturation 93% on 2 L nasal cannula. GENERAL: Awake, alert, in no acute distress. LUNGS: Clear to auscultation bilaterally. No wheeze or crackles. CARDIOVASCULAR: Normal rate, irregularly irregular rhythm. No murmur. Normal S1 and S2. ABDOMEN: Soft and nontender. EXTREMITIES: 1+ pitting edema on the right. Dressing present on the right foot. No edema on the left. CARDIAC MEDICATIONS: 1. Plavix 75 mg p.o. daily. 2. Metoprolol tartrate 50 mg p.o. q.12 hours. 3. Amiodarone 200 mg p.o. before dialysis. LABORATORY DATA: WBC 11.07, hemoglobin 7.9, hematocrit 25.5, platelets 374. Sodium 136, potassium 5.2, chloride 98, CO2 of 27, BUN 24, creatinine 5.66. Telemetry was personally reviewed and interpreted, revealing atrial fibrillation. IMPRESSION: 1. Right foot osteomyelitis. 2. Peripheral arterial disease, status post intervention of the right anterior tibial artery. 3. Atrial fibrillation. 4. End-stage renal disease, on hemodialysis. 5. Hypertension. RECOMMENDATIONS: Continue current cardiac medications. Continue Plavix given recent intervention. If no procedure planned, would recommend resuming anticoagulation for CVA prophylaxis. Volume management per Nephrology given end-stage renal disease. He would benefit from further ultrafiltration given his elevated BNP. Antibiotics per Infectious Disease. Wound care per Podiatry. Thank you for this consult. We will continue to follow. Qiana Broderick MD ABS/MODL /[id number]
[2019-12-23] MEDS ORDERED: SODIUM CHLORIDE 0.9% 250ML 250 ML ONE (13:27)
[2019-12-23] MEDS ORDERED: LIDOCAINE HCL 1% LOCAL INJ 20 ML VIAL ONE (13:27)
[2019-12-23] MEDS ORDERED: MIDAZOLAM HCL 2 MG/2 ML VIAL ONE (14:44)
[2019-12-23] MEDS ORDERED: FENTANYL CITRATE/PF 100MCG/2 ML INJ ONE (14:45)
[2019-12-23 16:02] VITALS: BP 105/58
--- NOTE | 2019-12-23 17:48 | NUR ---
REPORT GIVEN TO RN AT [facility]; WILL CALL EMS.
[2019-12-23] MEDS ORDERED: SODIUM CHLORIDE 0.9% 50ML 50 ML ONE (18:12)
[2019-12-23] MEDS: CEFAZOLIN SOD 1 GM/NS 50ML 50 ML IV SCH (18:17)
[2019-12-23] MEDS: CHOLECALCIFEROL 1,000 UNIT TAB PO SCH (18:20)
[2019-12-23] MEDS: CLOPIDOGREL BISULFATE 75 MG TAB PO SCH (18:20)
[2019-12-23] MEDS: FOLIC ACID/CYANOCOB/PYRIDOXINE TAB PO SCH (18:20)
--- NOTE | 2019-12-27 14:47 | Diagnostic Imaging Report ---
PROCEDURE: Tunneled central venous catheter placement Procedural Personnel Attending physician(s): Emilee Cottrell MD Fellow physician(s): None Resident physician(s): None Advanced practice provider(s): None Pre-procedure diagnosis: Cellulitis Post-procedure diagnosis: Same Indication: Intravenous fluid and medication administration Additional clinical history: None Complications: No immediate complications. IMPRESSION: Insertion of right-sided dual-lumen tunneled Proline central venous, with tip in the expected location of the cavoatrial junction. Plan: The catheter may be used immediately. PROCEDURE SUMMARY: - Venous access with ultrasound guidance - Tunneled central venous catheter insertion with fluoroscopic guidance - Additional procedure(s): None PROCEDURE DETAILS: Pre-procedure Consent: Informed consent for the procedure including risks, benefits and alternatives was obtained and time-out was performed prior to the procedure. Preparation (MIPS): The site was prepared and draped using all elements of maximal sterile barrier technique including sterile gloves, sterile gown, cap, mask, large sterile sheet, sterile ultrasound probe cover, hand hygiene and cutaneous antisepsis with 2% chlorhexidine. Medical reason for site preparation exception (MIPS): Not applicable Anesthesia/sedation Level of anesthesia/sedation: Moderate sedation (conscious sedation) Anesthesia/sedation administered by: Independent trained observer under attending supervision with continuous monitoring of the patient?s level of consciousness and physiologic status Total intra-service sedation time (minutes): 30 Access Local anesthesia was administered. The vessel was sonographically evaluated and determined to be patent. Real time ultrasound was used to visualize needle entry into the vessel and a permanent image was stored. Vein accessed: Internal jugular vein Access technique: Micropuncture set with 21 gauge needle Catheter placement An incision was made near the venous access site and the catheter was tunneled subcutaneously to the venous access site and trimmed to appropriate length. The catheter was advanced via a peel-away sheath into the vein under fluoroscopic guidance. Catheter tip location was fluoroscopically verified and a permanent image was stored. Catheter placed: [employer] Proline Power Injectable Catheter size (Belarusian): 6 Catheter flush: Normal saline Closure A sterile dressing was applied. Access site closure technique: Tissue adhesive Catheter securement technique: Non-absorbable suture Contrast Contrast agent: None Radiation Dose Fluoroscopy time (minutes): 0.0 Reference air kerma (mGy): 0.5 Additional Details Additional description of procedure: None Equipment details: None Specimens removed: None Estimated blood loss (mL): Less than 10 Standardized report: [email or web address] Attestation Signer name: Emilee Cottrell MD I attest that I was present for the entire procedure. I reviewed the stored images and agree with the report as written. Signed by: Emilee Cottrell MD on 12/23/2019 4:30 PM
--- NOTE | 2020-01-01 08:09 | Discharge Summary ---
DISCHARGE DIAGNOSES: 1. Sepsis secondary to osteomyelitis of the right foot. 2. Peripheral arterial disease. 3. End-stage renal disease. 4. Diabetes. 5. Hypertension. HISTORY OF PRESENT ILLNESS AND HOSPITAL COURSE: See hospital chart for full details. The patient is a gentleman with severe peripheral arterial disease, end-stage renal disease, and diabetes, who presented with osteomyelitis and sepsis of the right foot, where he was placed on IV antibiotics. He did have intervention done by Cardiology to try to improve the blood flow to that foot and the patient's foot was very gangrenous and foul odor, which did improve with IV antibiotics, wound care, and some improved circulation, but the patient's risk of amputation is near 100%, but the patient was very adamant that he did not want to go through that procedure at this moment. He wanted to do everything he could do to try to preserve it even though he knows he is high risk for further sepsis and and potential loss of limb, even in the future, so the patient was then transferred to a facility, where he can still have continued IV antibiotics, wound care, as well as his dialysis and hope that his wound continues to heal even though he knows he is high risk for to not heal. Please see hospital chart for full details. MD ROSHAN Muñoz/CASEY /[id number]
== END 2019-12-23 19:08 | DRG 853 ==
LOC: ER 14:09 → ERHOLD 16:05 → MED/SURG3 23:35
PROVIDERS: ADMIT Internal Medicine; ATTEND Internal Medicine
PROC: 5A1D70Z Performance of Urinary Filtration, Intermittent, Less than 6 Hours Per Day (ICD-10-PCS; 2019-12-10)
PROC: 047P3Z1 Dilation of Right Anterior Tibial Artery using Drug-Coated Balloon, Percutaneous Approach (ICD-10-PCS; principal; 2019-12-14)
PROC: 04CP3ZZ Extirpation of Matter from Right Anterior Tibial Artery, Percutaneous Approach (ICD-10-PCS; 2019-12-14)
PROC: 0JDQ0ZZ Extraction of Right Foot Subcutaneous Tissue and Fascia, Open Approach (ICD-10-PCS; 2019-12-15)
PROC: 0JH63XZ Insertion of Tunneled Vascular Access Device into Chest Subcutaneous Tissue and Fascia, Percutaneous Approach (ICD-10-PCS; 2019-12-23)
PROC: 02HV33Z Insertion of Infusion Device into Superior Vena Cava, Percutaneous Approach (ICD-10-PCS; 2019-12-23)
DX: A41.9 Sepsis, unspecified organism (principal); N18.6 End stage renal disease; I50.33 Acute on chronic diastolic (congestive) heart failure; M86.271 Subacute osteomyelitis, right ankle and foot; L03.115 Cellulitis of right lower limb; I13.2 Hypertensive heart and chronic kidney disease with heart failure and with stage 5 chronic kidney disease, or end stage renal disease; I50.30 Unspecified diastolic (congestive) heart failure; N17.9 Acute kidney failure, unspecified; E11.69 Type 2 diabetes mellitus with other specified complication; E11.22 Type 2 diabetes mellitus with diabetic chronic kidney disease; Z99.2 Dependence on renal dialysis; I48.91 Unspecified atrial fibrillation; E11.51 Type 2 diabetes mellitus with diabetic peripheral angiopathy without gangrene; Z79.4 Long term (current) use of insulin; B35.1 Tinea unguium; E11.42 Type 2 diabetes mellitus with diabetic polyneuropathy; I48.0 Paroxysmal atrial fibrillation; Z79.01 Long term (current) use of anticoagulants; E78.5 Hyperlipidemia, unspecified
CPT/HCPCS: 36247; 36415; 36558; 37229; 71045; 74018; 74470; 75625; 75710; 76937; 77001; 80048; 80053; 80076; 82150; 82550; 82553; 82948; 83036; 83605; 83690; 83735; 83880; 84100; 84484; 85025; 85610; 85730; 86704; 86705; 86706; 87040; 87071; 87075; 87186; 87205; 87340; 87350; 90962; 93005; 93306; 93925; 93971; 94640; 96360; 99152; 99153; 99284; C1724; C1725; C1760; C1769; C1887; J0690; J1200; J1644; J2001; J2250; J2405; J2543; J3010; J3370; J7030; J7040; J7050; J7799; Q9967

== ENCOUNTER 2020-02-17 11:34 | Inpatient (IN) | payer MEDICARE, OTHER ==
[~2020-02-17] VITALS: Ht 180.3 cm; Wt 83.7 kg
[~2020-02-17 11:34] MED LIST: AMIODARONE HCL200 MG PO; AMLODIPINE BESY10 MG PO; DIALYVITE 8000.8 M1 PO; ELIQUIS2.5 MG PO; ETHYL CHLORI103.5 ML TOP; GLIMEPIRIDE2 MG PO; INCRUSE ELLI62.5 MCG INH; METOPROLOL TART50 MG PO; MIDODRINE HCL10 MG PO; OPTIMAL D31250 MCG PO; PROAIR DIGIHAL90 MCG INH; SYMBICORT 16010.2 GM INH
[2020-02-17] MEDS ORDERED: SODIUM CHLORIDE 0.9% 1000ML 1,000 ML IV STA (12:17)
[2020-02-17] MEDS ORDERED: VANCOMYCIN 1GM/NS 250 ML 250 ML IV ONE ×2 (13:00→19:15)
[2020-02-17 13:11] LABS: BASOPHILS # (AUTO) 0.1 (0.0-0.1); BASOPHILS % 0.8 % (0.0-1.0); EOSINOPHILS # (AUTO) 0.2 (0.0-0.4); EOSINOPHILS % 2.2 % (0.0-6.0); HEMATOCRIT 35.1 % (38.2-49.6); HEMOGLOBIN 10.4 g/dL (14.0-18.0); LYMPHOCYTES % 9.5 % (18.0-39.1); MEAN CORPUSCULAR HGB CONC 29.6 g/dL (31-35); MEAN CORPUSCULAR VOLUME 94.4 fL (81-99); MONOCYTES # (AUTO) 0.9 (0.2-0.8); MONOCYTES % 8.9 % (4.4-11.3); NEUTROPHILS % 76.8 % (38.7-80.0); PLATELET COUNT 250 x10e3/uL (140-360); RED BLOOD COUNT 3.72 x10e6/uL (4.3-5.7); RED CELL DISTRIBUTION WIDTH 15.6 % (11.7-14.4)
[2020-02-17 13:21] LABS: INR 1.05; PROTHROMBIN TIME 14.4 seconds (11.9-14.5)
[2020-02-17 13:22] LABS: PARTIAL THROMBOPLASTIN TIME 37.5 seconds (23.8-35.5)
--- NOTE | 2020-02-17 13:25 | NUR ---
PATIENT REPORTS LAST DIALYSIS THURSDAY
[2020-02-17 13:34] LABS: ALBUMIN 3.2 g/dL (3.5-5.0); ALBUMIN/GLOBULIN RATIO 0.7 (0.8-2.0); ANION GAP 17.1 mmol/L (8-16); CALCIUM 10.4 mg/dL (8.4-10.2); CREATININE, SERUM 5.45 mg/dL (0.72-1.25); MAGNESIUM 2.2 MG/DL (1.3-2.1); POTASSIUM 5.1 mmol/L (3.5-5.1)
[2020-02-17 13:40] LABS: CREATINE KINASE MB 2.3 ng/mL (0-5.0)
[2020-02-17] MEDS ORDERED: ONDANSETRON HCL INJ 2MG/ML 2ML 2 MG/ML VIAL IV PRN (14:30)
[2020-02-17] MEDS ORDERED: METRONIDAZOLE 500MG/NS 100ML 100 ML IV SCH (15:00)
[2020-02-17] MEDS ORDERED: HYDROCODONE/APAP 5MG-325MG TAB PO PRN (15:00)
[2020-02-17] MEDS: CEFEPIME 2 GM/NS 0.9% 100 ML 100 ML IV SCH (15:10)
--- NOTE | 2020-02-17 15:26 | Diagnostic Imaging Report ---
X-ray right foot multiple views Comparison: None. History: Injury Findings: There is presence of multiple chronic looking fractures with dislocations in various stages of healing involving the second third and fourth distal metatarsal bones associated with osteopenia, soft tissue swelling, soft tissue gas. This raises the possibility of active infection. In case of the third metatarsal the disease process involves the metatarsophalangeal joint. The bones are in general osteopenic. There is calcification of the visualized arteries. There is suggestion of an ulcer on the ball of the foot. Impression: Findings as described above. Neuropathic and/or diabetic foot disease should also be entertained in the differential diagnosis. Signed by: José Mclean MD on 02/17/2020 3:23 PM
--- NOTE | 2020-02-17 18:30 | NUR ---
WOUND CARE CONSULT 69 YO MALE HX OF DIABETES, CELLULITIS, ESRD ON DIALYSIS, GANGRENE, OSTEOMYELITIS. PT ASSESSED IN ER HOLD; PT WILL BE TRANSFERED TO [place] 3 ROOM 296. PT A&O X 3.PT IS ABLE TO TURN SIDE TO SIDE WITH ASSITANCE AND TO FOLLOW INSTRUCTIONS. LABS: WBC- 10.41 HGB- 10.4 GLUCOSE-157 FOOT X-RAY PENDING. PT IS ON IV VANCOMYCIN AND METRONIDAZOLE. SKIN ASSESSMENT PATIENT PRESENTS WITH: 1)RED BLANCHABLE REDNESS PRESENT TO GLUTEAL SACRAL AREA; MEASURING 8 CM X 14 CM. NO DRAINGAGE; APPLY VENELEX AND APPLY ALLEVYN FOAM. 2)RIGHT ANTERIOR LOWER LEG DIABETIC ULCER; MEASURING 4 CM X 2 CM X 0.4 CM WITH AN UNDERMINING OF 1.5 CM FROM 9 OCLOCK TO 12 OCLOCK.; MULIPLE MAGGOTS COVERING THE 100% WOUND BED; WOUND IS CLEANED WITH NORMAL SALINE FLUSH AND BETADINE FLUSH; ONCE MAGGOTS ARE REMOVED TENDON IN VISIBLE. 100 % CYANOTIC PALE/NECROTIC TISSUE; COVERED WITH BETADINE WET TO DRY DRESSING. MINIMAL SEROUSANGUINAL DRAINAGE. 3)RIGHT PROXIMAL ANTERIOR FOOT UNSTAGEABLE ULCER MEASURING 6.5 CM X 3 CM X 0.3 CM. 90% NECROTIC TISSUE AND 10 % DARK RED GRANULATION. MODERATE SEROSANGUINOUS DRAINAGE. 4)RIGHT MEDIAL ANTERIOR FOOT UNSTAGEABLE ULCER MEASURING 2 CM X 3 CM X 0.9 CM 100% YELLOW SLOGH. MINIMAL SEROUS DRAINAGE. 5)RIGHT LATERAL FOOT UNSTABLE ULCER MEASURING 3CM X 2.5 CM CM. 100% NETROCTIC TISSUE. NO DRAINAGE PRESENT. 6)RIGHT HEEL UNSTAGEABLE ULCER MEASURING 2.5 CMX 3.8 CM. 100% COVERED IN NECROTIC TISSUE. NO DRAINAGE PRESENT. 7)RIGHT PLANTAR FOOT DIABETIC ULCER MEASURING 1.8 CM X 1.5 CM X 0.4 CM 90 % YELLOW SLOGH AND 10 % PINK GRANULATION; CALLUS PERIWOUND. MODERATE SEROSANGUINOUS DRAINAGE. 8)BETWEET 1ST AND 2ND RIGHT, UNSTABLE ULCER 100% COVERED IN YELLOW SLOUGH; MEASURING 7 CM X 4 CM X 1.3 CM. MODERATE SEROUS DRAINAGE. 9)RIGHT 3RD TOE UNSTABLE ULCER MEASURING 1 CM X 1CM; 100% CALLUS/NECROTIC WOUND BED. NO DRAINAGE. N 10)RIGHT MEDIAL 3RD TOE UNSTAGEABLE ULCER MEASURIN.5 CM X 0.9 CM X 0.1 CM, 100% IN YELLOW SLOUGH. SEROUS DRAINAGE. 11)DENUTED SKIN BETWEET LATERAL 3RD TOE , 4TH AND MEDIAL 5TH TOE FROM MOISTURE. 12)ANTERIOR DIABETIC ULCER TO LEFT TOE; MEASURING 0.5 CM X 0.5 CM X 0.1 CM; 95 % YELLOW SLOUGH AND 5% RED GRANULATION. SEROUS DRAINAGE. 13)LEFT KNEE UNSTAGEABLE WOUND; 100% NECROTIC SCAB TISSUE. MEASURING 2 CM X 3 CM; NO DRAINAGE. RECOMMENDATIONS: -NURSING TO CONTINUE WITH CONSULT FOR DR. SALAZAR; UPDATE WOUND CARE ORDERS ACCORDING TO TREATMENT PLAN. -RED BLANCHABLE REDNESS PRESENT TO GLUTEAL SACRAL AREA; MEASURING 8 CM X 14 CM. NO DRAINGAGE; APPLY VENELEX AND APPLY ALLEVYN FOAM DAILY. - RIGHT ANTERIOR LOWER LEG UNSTAGEABLE ULCER; MEASURING 4 CM X 2 CM X 0.4 CM WITH AN UNDERMINING OF 1.5 CM FROM 9 OCLOCK TO 12 OCLOCK.; MULIPLE MAGGOTS COVERING THE 100% WOUND BED; WOUND IS CLEANED WITH NORMAL SALINE FLUSH AND BETADINE FLUSH; ONCE MAGGOTS ARE REMOVED TENDON IN VISIBLE. 100 % CYANOTIC PALE/NECROTIC TISSUE; COVERED WITH BETADINE WET TO DRY DRESSING DAILY. - RIGHT PROXIMAL ANTERIOR FOOT UNSTAGEABLE ULCER MEASURING 6.5 CM X 3 CM X 0.3 CM. 90% NECROTIC TISSUE AND 10 % DARK RED GRANULATION. CLEAN WITH NORMAL SALINE; PAT DRY WITH 4X4 GUAZE; APPLY MESALT; APPLY 1 DROP OF NORMAL SALINE AND COVER WITH 4X4 MOISTENED BETADINE GAUZE, AND LIGHTLY SECURE WITH KERLIX DAILY. -RIGHT MEDIAL ANTERIOR FOOT UNSTAGEABLE ULCER MEASURING 2 CM X 3 CM X 0.9 CM 100% YELLOW SLOGH. CLEAN WITH NORMAL SALINE; PAT DRY WITH 4X4 GUAZE; APPLY MESALT; APPLY 1 DROP OF NORMAL SALINE AND COVER WITH 4X4 MOISTENED BETADINE GAUZE, AND LIGHTLY SECURE WITH KERLIX DAILY. -RIGHT LATERAL FOOT UNSTABLE ULCER MEASURING 3CM X 2.5 CM CM. 100% NETROCTIC TISSUE. CLEAN WITH NORMAL SALINE; PAT DRY WITH 4X4 GUAZE; APPLY MESALT; APPLY 1 DROP OF NORMAL SALINE AND COVER WITH 4X4 MOISTENED BETADINE GAUZE, AND LIGHTLY SECURE WITH KERLIX DAILY. -RIGHT HEEL UNSTABLE ULCER MEASURING 2.5 CMX 3.8 CM. 100% COVERED IN NECROTIC TISSUE. CLEAN WITH NORMAL SALINE; PAT DRY WITH 4X4 GUAZE; APPLY MESALT; APPLY 1 DROP OF NORMAL SALINE AND COVER WITH 4X4 MOISTENED BETADINE GAUZE, AND LIGHTLY SECURE WITH KERLIX DAILY. -RIGHT PLANTAR FOOT DIABETIC ULCER MEASURING 1.8 CM X 1.5 CM X 0.4 CM 90 % YELLOW SLOGH AND 10 % PINK GRANULATION; CALLUS PERIWOUND. CLEAN WITH NORMAL SALINE; PAT DRY WITH 4X4 GUAZE; APPLY MESALT; APPLY 1 DROP OF NORMAL SALINE AND COVER WITH 4X4 MOISTENED BETADINE GAUZE, AND LIGHTLY SECURE WITH KERLIX, DAILY. -BETWEET 1ST AND 2ND RIGHT, UNSTABLE ULCER 100% COVERED IN YELLOW SLOUGH; MEASURING 7 CM X 4 CM X 1.3 CM; CLEAN WITH NORMAL SALINE; PAT DRY WITH 4X4 GUAZE; APPLY MESALT; APPLY 1 DROP OF NORMAL SALINE AND COVER WITH 4X4 MOISTENED BETADINE GAUZE, AND LIGHTLY SECURE WITH KERLIX, DAILY. -RIGHT TOE UNSTABLE ULCER MEASURING 1 CM X 1CM; CLEAN WITH NS , PAT DRY WITH 4X4 GAUZE, PAINT WITH BETADINE COVER WITH 4X4 GAUZE AND LIGHTLY WRAP WITH KERLIX DAILY. -RIGHT MEDIAL 3RD TOE UNSTAGEABLE ULCER MEASURIN.5 CM X 0.9 CM X 0.1 CM, 100% IN YELLOW SLOUGH. CLEAN WITH NORMAL SALINE; PAT DRY WITH 4X4 GUAZE; APPLY MESALT; APPLY 1 DROP OF NORMAL SALINE AND COVER WITH 4X4 MOISTENED BETADINE GAUZE, AND LIGHTLY SECURE WITH KERLIX DAILY. -DENUTED SKIN BETWEET LATERAL 3RD TOE , 4TH AND MEDIAL 5TH TOE FROM MOISTURE; CLEAN WITH NORMAL SALINE; PAT DRY WITH 4X4 GAUZE, APPLY BETADINE AND APPLY 4X4 MOISTENED WITH BETADINE LOOSELY AROUND TOES DAILY. -ANTERIOR DIABETIC ULCER TO LEFT TOE; MEASURING 0.5 CM X 0.5 CM X 0.1 CM; 95 % YELLOW SLOUGH AND 5% RED GRANULATION; CLEAN WITH NORMAL SALINE; PAT DRY WITH 4X4 GUAZE; APPLY MESALT; APPLY 1 DROP OF NORMAL SALINE AND COVER WITH 4X4 MOSTENED BETADINE GAUZE, AND LIGHTLY SECURE WITH KERLIX DAILY. NURSING TO CONTINUE TO MONITOR PATIENT AND KEEP SKIN CLEAN AND FREE FROM STOOL OR IRRITATING MOISTURE. NURSING TO CONTINUE REPOSITION PT SIDE TO SIDE EVERY TWO HOURS. NURSING TO APPLY ALT PRESSURE MATTRESS. NURSING TO CONTINUE TO OFFLOAD FEET AND HEELS AT ALL TIMES WITH PILLOW SUSPENSION WHEN IN BED. NURSING TO APPLY BILATERAL HEEL PROTECTORS DAILY. NURSIGN TO CONTINUE TO ASSIST PT OUT OF BED FOR NUTRITONAL MEALS TO ENSURE PROPER REQUIREMENTS FOR HEALING. NURSING TO RE- CONSULT WOUND CARE NEEDED. Addendum: 02/17/20 at 2116 by Lily Maravilla RN Amended: Links added.
[2020-02-17] MEDS: SEVELAMER CARBONATE 800 MG TAB PO SCH (19:07)
[2020-02-17] MEDS: INSULIN LISPRO 100 UNIT/1 ML 3ML VIAL SQ SCH ×2 (19:07→21:00)
--- NOTE | 2020-02-17 19:20 | NUR ---
Patient finished dialysis at this time.
--- NOTE | 2020-02-17 19:44 | Consultation ---
DATE OF CONSULTATION: 02/17/2020 REPORT: Consultation Note. BODY AFTER REPORT: HISTORY OF PRESENT ILLNESS: A 69-year-old gentleman known to our Nephrology Service, underlying history of atrial fibrillation, coronary artery disease, congestive heart failure, hypertension, end-stage renal disease, osteomyelitis right foot, peripheral vascular disease presented with infected wound right foot. Currently lying supine, in no apparent distress. He is on a Thursday, Thursday, and Thursday dialysis schedule. Recent labs white count 10.1, hemoglobin 10.4, sodium 134, potassium 5.1, bicarbonate 29, creatinine 5.4. Troponin I 0.029. He is currently awake, alert, and lying supine in no apparent distress. Denies shortness of breath, nausea, or vomiting. SOCIAL HISTORY: Does not smoke or drink. FAMILY HISTORY: Significant for hypertension. PHYSICAL EXAMINATION: GENERAL: Awake, alert, and oriented x3, lying supine in no apparent distress. VITAL SIGNS: Blood pressure 139/69, pulse rate 78, afebrile, and respiratory rate 17. HEAD AND NECK: Cornea clear. Oral mucosa moist. Neck veins flat. LUNGS: Few bibasilar rales. HEART: S1 and S2 audible. ABDOMEN: Otherwise soft and nontender. EXTREMITIES: Lower extremity examination, dressing noted over foot. Edema 1+, right foot more than left. Dressing not removed for evaluation. Foot x-ray pending. Blood cultures drawn. Discussed with Dr. Rowland, who agree with empiric antibiotics, wound care consult. I will arrange for dialysis. We will resume phosphorus binders, protein supplementation, and renal diet. MD SHAMEKA Osullivan/CASEY /[id number]
[2020-02-17 20:00] VITALS: BP 119/61
[2020-02-17] MEDS ORDERED: SODIUM CHLORIDE 0.9% 250ML 250 ML ONE (20:12)
--- NOTE | 2020-02-17 20:45 | Consultation ---
DATE OF CONSULTATION: REASON FOR CONSULTATION: Infection of his right foot with gangrene changes and maggots. HISTORY OF PRESENT ILLNESS: This patient who is a 69-year-old white male, history of diabetes mellitus, history of obesity, history of neuropathy. He was back here in December. He came in December 09, 2019 with right foot infection. The patient has severe peripheral vascular disease, end-stage renal disease, diabetes mellitus, coronary artery disease, peripheral vascular disease. He was seen by Podiatry. He was seen by Cardiology at that time. He was given with IV antibiotic. The patient was discharged home with IV antibiotic to [facility] from there he went home. He was getting home health, but today the home health nurse noted that the foot is becoming gangrenous as well. There is also maggots on the wound, so he was sent here. The patient who is currently in the emergency room, lying in bed comfortably. The patient has history of cardiac valve replacement, end-stage renal disease, diabetes mellitus, peripheral vascular disease. He denies any fever or chills, but he is having some discomfort, pain and ulcer in the foot seems to be getting progressively worse. When he was back in November, he had the same problem with the foot. He was seen by Renal. He was seen by Cardiology. He was seen by Podiatry. The patient underwent vascular workup, but now he is presenting with the above. LABORATORY DATA: White count was 10.4, hemoglobin 10.4. Sodium 134, potassium 5.1, creatinine 5.4. The patient is currently lying in bed comfortably. PAST MEDICAL HISTORY: As above. PAST SURGICAL HISTORY: As above. ALLERGIES: NKA. SOCIAL HISTORY: There is no smoking, drug abuse, or alcohol abuse. FAMILY HISTORY: Otherwise hypertension and diabetes. REVIEW OF SYSTEMS: GENERAL: The patient is just not feeling well. HEENT: Not icteric. NECK: Supple. CHEST: Clear bilateral. HEART: S1, S2. No S3, S4, or murmur. ABDOMEN: Soft. Bowel sounds. No tenderness. EXTREMITIES: There are several wounds on the right lower extremity. There are several maggots on the lower aspect. IMPRESSION: 1. Gangrene of the foot, failing medical treatment. I had a long discussion with the patient. I think he needs below knee amputation, but he is still against it. We will put him on vancomycin, cefepime and Flagyl. Vancomycin 1 g now then after each hemodialysis cefepime 1 g now then q.24, Flagyl 500 IV q.8. 2. Surgical evaluation. 3. Obesity. 4. Diabetes mellitus. 5. End-stage renal disease. 6. We will discuss with Internal Medicine. I think the patient is non-reliable. I think below knee amputation would be ultimately unavoidable. We will follow. MD IVETTE Lino/MODL /[id number]
[2020-02-17] MEDS: METRONIDAZOLE 500MG/NS 100ML 100 ML IV SCH (21:30)
[2020-02-17 22:00] VITALS: BP 116/59
--- NOTE | 2020-02-17 23:35 | Progress Note ---
DATE: SUBJECTIVE: The patient is comfortable, resting, no apparent distress. OBJECTIVE: VITAL SIGNS: Blood pressure 130/60, pulse rate 88, afebrile, respiratory rate 17, oxygen saturation 96% on room air. HEAD AND NECK: Cornea clear. Oral mucosa moist. LUNGS: Bibasilar rales. HEART: S1 and S2 audible. ABDOMEN: Soft and nontender. EXTREMITIES: Lower extremity examination, no edema, dressing noted right foot. IMPRESSION: 1. Hyperkalemia. 2. End-stage renal disease. 3. Mild fluid overload on dialysis. Sodium 140, potassium bicarb 35, calcium 2.5. as tolerated. Dayanna Beard MD SAK/MODL /[id number]
[2020-02-18] VITALS (8 sets, daily range): BP systolic 105–117; BP diastolic 49–62
--- NOTE | 2020-02-18 00:49 | NUR ---
CARDIAC MARKER RESULTS PENDING
[2020-02-18 01:00] LABS: CREATINE KINASE MB 2.3 ng/mL (0-5.0)
[2020-02-18] MEDS: CEFEPIME 2 GM/NS 0.9% 100 ML 100 ML IV SCH ×2 (02:22→14:00)
[2020-02-18] MEDS: METRONIDAZOLE 500MG/NS 100ML 100 ML IV SCH ×4 (03:20→22:07)
[2020-02-18 06:53] LABS: BASOPHILS # (AUTO) 0.1 (0.0-0.1); BASOPHILS % 1.1 % (0.0-1.0); EOSINOPHILS # (AUTO) 0.3 (0.0-0.4); HEMATOCRIT 34.4 % (38.2-49.6); HEMOGLOBIN 10.3 g/dL (14.0-18.0); LYMPHOCYTES % 8.3 % (18.0-39.1); MEAN CORPUSCULAR HEMOGLOBIN 27.8 pg (28-32); MEAN CORPUSCULAR HGB CONC 29.9 g/dL (31-35); MONOCYTES % 8.6 % (4.4-11.3); NEUTROPHILS # (AUTO) 8.8 (2.1-6.9); NEUTROPHILS % 76.9 % (38.7-80.0); PLATELET COUNT 257 x10e3/uL (140-360); RED CELL DISTRIBUTION WIDTH 15.5 % (11.7-14.4)
[2020-02-18 07:12] LABS: ALBUMIN 2.8 g/dL (3.5-5.0); ALBUMIN/GLOBULIN RATIO 0.6 (0.8-2.0); ANION GAP 16.2 mmol/L (8-16); CALCIUM 9.6 mg/dL (8.4-10.2); CREATININE, SERUM 3.62 mg/dL (0.72-1.25); POTASSIUM 4.2 mmol/L (3.5-5.1)
[2020-02-18 07:39] LABS: CREATINE KINASE MB 1.7 ng/mL (0-5.0)
[2020-02-18] MEDS ORDERED: UMECLIDINIUM BROMIDE INH SCH (09:00)
[2020-02-18] MEDS: SEVELAMER CARBONATE 800 MG TAB PO SCH ×3 (09:06→17:10)
[2020-02-18] MEDS: GLIMEPIRIDE 2 MG TAB PO SCH (09:06)
[2020-02-18] MEDS: AMLODIPINE BESYLATE 10 MG TAB PO SCH (09:06)
[2020-02-18] MEDS: APIXAB 2.5 MG TABLET PO SCH ×2 (09:06→21:04)
[2020-02-18] MEDS: INSULIN LISPRO 100 UNIT/1 ML 3ML VIAL SQ SCH ×4 (09:07→20:49)
[2020-02-18] MEDS: BALSAM PERU/CASTOR OIL 60 GM OINT...G. TP SCH (09:07)
[2020-02-18] MEDS ORDERED: ALBUTEROL SULFATE HFA 8GM INHALATION AEROSOL INH PRN (10:00)
--- NOTE | 2020-02-18 11:21 | Consultation ---
DATE OF CONSULTATION: Cardiology Consultation HISTORY OF PRESENT ILLNESS: This is a 69-year-old man with a history of paroxysmal atrial fibrillation with prior cardioversion with an implantable loop recorder, hypertension, hyperlipidemia, prior tobacco use, and severe peripheral arterial disease, status post intervention 2018 and December 2019. His recent intervention involved the right anterior tibial artery and he had 3-vessel runoff towards the foot at the end of the case. The patient presented with right foot wound that evidently had maggots in his wound and was gangrenous changes. He otherwise is feeling well from a cardiovascular standpoint. REVIEW OF SYSTEMS: A 12-point review of system was conducted and is negative except as stated above in the HPI. PAST MEDICAL HISTORY: As stated above in the HPI. PAST SURGICAL HISTORY: Percutaneous transluminal angioplasty of the right anterior tibial. SOCIAL HISTORY: No illicit drug, alcohol, or tobacco use. ALLERGIES: PENICILLIN. FAMILY HISTORY: Noncontributory to current illness. MEDICATIONS: See medication reconciliation form. PHYSICAL EXAMINATION: VITAL SIGNS: Temperature is 97.7, heart rate is 78, respirations are 18, blood pressure is 116/51, and oxygen saturation 96% on room air. GENERAL: Well-appearing, elderly man, lying comfortably in bed, no apparent distress. Alert and oriented x3. HEAD: Normocephalic and atraumatic. EYES: The extraocular muscles are intact. Conjunctiva clear. NECK: No JVD. No bruits. CARDIOVASCULAR: Irregularly irregular. Systolic murmur at the right sternal border. LUNGS: Clear to auscultation bilaterally. ABDOMEN: Soft, nontender, and nondistended. EXTREMITIES: Diminished pulses due to the foot being wrapped. LABORATORY DATA: Reviewed. White blood cell count is 11.45. Creatinine is 2.62. IMPRESSION: 1. Foot wound with gangrene. 2. Peripheral arterial disease, status post prior intervention. 3. Hypertension. 4. Hyperlipidemia. 5. Atrial fibrillation. 6. End-stage renal disease. RECOMMENDATIONS: I reviewed the last angiogram images from December of this year. The patient had 3-vessel runoff towards the foot. We will obtain a limited arterial Doppler of the lower extremity. The patient likely will require amputation, however, he is declining this at this point in time. Continue local wound care and antibiotics. We will continue to follow along with you. Bassem DO REAL Olguin/CASEY /[id number]
[2020-02-18] MEDS: METOPROLOL TARTRATE 50 MG TAB PO SCH (11:48)
[2020-02-18] MEDS ORDERED: LINEZOLID 600 MG/D5W 300ML 300 ML IV SCH (13:00)
--- NOTE | 2020-02-18 14:06 | History and Physical ---
A 69-year-old man, who comes in with infection and osteomyelitis of the right lower extremities as ongoing. HISTORY OF PRESENTING ILLNESS: This is Mr. Guzman, who is a 69-year-old gentleman with a history of diabetes mellitus, history of hypertension, history of PAD, history of chronic osteomyelitis with usual state of health until the patient started with infection of the foot in November. The patient has severe peripheral artery disease, history of coronary artery disease, and diabetic neuropathy. The foot looked gangrenous and was seen by home health and the patient was brought to the emergency room, admitted for ongoing osteomyelitis treatments. PAST MEDICAL HISTORY: History of diabetes mellitus, history of coronary artery disease, history of hyperlipidemia, history of hypertension, history of atrial fibrillation, history of chronic orthostasis. The patient also has history of COPD. MEDICATIONS AT HOME: 1. Albuterol. 2. ProAir. 3. Amiodarone 200 mg daily. 4. Amlodipine 10 mg daily. 5. Apixaban 2.5 mg daily. 6. Budesonide. 7. Symbicort 160 mg b.i.d. 8. Folic acid once a day. 9. Glimepiride 2 mg once a day. 10. Metoprolol 50 mg b.i.d. 11. Midodrine 10 mg b.i.d. 12. The patient also takes Incruse Ellipta 62.5 mcg once daily. PAST SURGICAL HISTORY: History of appendectomy and history of multiple ankle surgeries. SOCIAL HISTORY: No EtOH. No IV drug abuse. No history of smoking. Past smoker. REVIEW OF SYSTEMS: Negative for chest pain. No shortness of breath. No nausea, vomiting, or diarrhea. Positive for right foot pain. No diplopia. No blurry vision. No headaches. PHYSICAL EXAMINATION: VITAL SIGNS: Temperature is 98.3, pulse of 83, respirations of 19, blood pressure is 107/49, pulse oximetry of 99% on room air. HEENT: Normocephalic, atraumatic. The patient is alert and oriented x3. CVS: S1 and S2. Regular. ABDOMEN: Nontender, nondistended. EXTREMITIES: Right lower extremity positive for bandage. The patient also has seepage and serosanguineous discharge to the bandage anteriorly. LABORATORY VALUES: White count is 10.41, hemoglobin of 10.4, hematocrit 35.1. Chemistries, sodium of 134, potassium 5.1, creatinine 5.45. BUN of 32, magnesium of 2.2. The patient's glucose is 153. IMAGING STUDIES: X-ray from yesterday shows soft tissue swelling, soft tissue gas, osteopenia, and multiple chronic fractures with dislocation involving the 2nd, 3rd, and 4th distal metatarsals. ASSESSMENT: Mr. Jerome Guzman with: 1. Osteomyelitis of the right foot. 2. Diabetes mellitus. 3. End-stage renal disease. 4. Hypertension. 5. Hyperlipidemia. 6. Peripheral artery disease. 7. History of coronary artery disease, status post stent by Dr. Lyle in 2014. 8. Atrial fibrillation. 9. Chronic debility. PLAN: 1. He is on cefepime and metronidazole. Consult with Dr. Jimenez has been done. 2. Consult with Dr. Jorge for Podiatry has been ordered. 3. Consult with Dr. Beard for dialysis has been ordered too. PLAN: Restart his medications and can stop depending on Dr. Jorge's evaluation for surgery if needed or debridement if needed. Continue monitoring his labs. A lipid panel will be done for his arterial Doppler. We will continue monitoring the patient. Further recommendation per clinical course. Troponin has been trended to be negative. MD CLAUDIA Bhakta/MODL /[id number]
--- NOTE | 2020-02-18 15:27 | Progress Note ---
DATE: SUBJECTIVE: Mr. Guzman is lying in bed comfortably. REVIEW OF SYSTEMS: HEENT: Negative. PULMONARY: Negative. CARDIAC: Negative. EXTREMITY: He is still resistant for [id number] amputation. He has been seen by Cardiology. I plan for him to have a Doppler and perhaps see if we can salvage the limb. PHYSICAL EXAMINATION: GENERAL: Alert, oriented. Does not seem to be in acute distress. VITAL SIGNS: Stable, afebrile. HEENT: Not icteric. NECK: Supple. CHEST: Clear. HEART: S1 and S2. ABDOMEN: Soft. IMPRESSION AND PLAN: 1. Gangrenous changes of the foot, severe peripheral vascular disease. I think he would need [id number] amputation. We will continue antibiotic, await vascular workup. Recheck CBC. Recheck chem panel. 2. Chronic kidney disease. 3. We will put him on Zyvox, cefepime and Flagyl. We will follow. MD IVETTE Lino/CASEY /[id number]
--- NOTE | 2020-02-18 15:35 | NUR ---
Nutrition Intervention Note RD Recommendation(s) for Physician: -Recommend 2000 kcal ADA/renal diet -Recommend Donato BID to promote wound healing -Recommend Vitamin C and zinc to promote wound healing -If PO intake <50% of meals, offer Nepro nutrition supplements Plan of Care: RD following, monitoring for tolerance and adequacy Nutrition reason for involvement: unstageable ulcers. Pt was also admitted with ESRD RD Assessment (02/18/20) Pt is a 69 year old male admitted with cellulitis, ESRD on dialysis, gangrene, and osteomyelitis. Pt stated he has been eating about 50% of his meals. It is recorded that pt consumed 75% of breakfast this morning. No weight loss reported and pt mentioned he usually weighs 180-185 lbs. Pt currently has a weight of 191 lbs in chart. No N/V/D/C or chewing/swallowing issues. Will continue to monitor Principal Problems/Diagnoses: cellulitis, ESRD on dialysis, gangrene, and osteomyelitis PMH: diabetes mellitus, coronary artery disease, hyperlipidemia, hypertension, atrial fibrillation, chronic orthostasis, COPD GI: soft, non-tender abdomen Skin: redness to gluteal sacral area, right lower leg diabetic ulcer, right foot unstageable ulcers, right heel unstageable ulcer, right foot diabetic ulcer, right 3rd toe unstageable ulcer, diabetic ulcer left toe, left knee unstageable wound Labs: (02/17) Na 135, Cr 3.62 Meds: insulin, Renvela, metoprolol, cefepime, zofran Ht: 71 inches Wt: 191 lbs BMI: 26.6 kg/m2 IBW: 172 lbs Malnutrition Evaluation (02/18/20) The patient does not meet criteria for a specified degree of malnutrition at this time. Will re-evaluate at follow-up as appropriate. Nutrition Prescription (Diet Order): 1800 ADA diet Estimated Nutritional Needs: [id number] calories/day (30-35 kcal/kg CBW) 104-130g protein/day (1.2-1.5 g pro/kg CBW) Diet Adequacy: Not Meeting calorie needs, Not Meeting protein needs Tolerance: Tolerating PO Diet Education Needs Assessment: Pt declined diet education materials at time of visit Nutrition Care Level: low Nutrition Diagnosis: Increased nutrient needs related to increased demand for protein and kcal as evidenced by multiple unstageable ulcers. Goal: Patient will meet 75-100% of estimated needs by follow up Progress: N/A Interventions: -mineral and carbohydrate- modified diet, Commercial beverage, Recommended Modifications, Multivitamin/mineral supplement therapy Monitoring/Evaluation: -Total energy intake, Total protein intake, Modified diet, Liquid supplement, Weight change Signed: Lelia Thurston RD, LD
[2020-02-18] MEDS: DEXTROSE 50% SYRINGE 50 ML IV PRN (21:45)
[2020-02-19] VITALS (8 sets, daily range): BP systolic 107–159; BP diastolic 47–79
[2020-02-19] MEDS: CEFEPIME 2 GM/NS 0.9% 100 ML 100 ML IV SCH (01:44)
[2020-02-19] MEDS: METRONIDAZOLE 500MG/NS 100ML 100 ML IV SCH ×3 (03:10→22:00)
[2020-02-19] MEDS: LINEZOLID 600 MG/D5W 300ML 300 ML IV SCH ×2 (04:10→16:00)
[2020-02-19] MEDS: UMECLIDINIUM BROMIDE INH SCH (06:00)
[2020-02-19 06:37] LABS: BASOPHILS # (AUTO) 0.1 (0.0-0.1); BASOPHILS % 0.6 % (0.0-1.0); EOSINOPHILS # (AUTO) 0.1 (0.0-0.4); EOSINOPHILS % 0.8 % (0.0-6.0); HEMATOCRIT 32.7 % (38.2-49.6); HEMOGLOBIN 9.8 g/dL (14.0-18.0); LYMPHOCYTES # (AUTO) 0.8 (1.0-3.2); LYMPHOCYTES % 6.2 % (18.0-39.1); MEAN CORPUSCULAR HEMOGLOBIN 27.8 pg (28-32); MEAN CORPUSCULAR VOLUME 92.6 fL (81-99); MONOCYTES # (AUTO) 0.9 (0.2-0.8); MONOCYTES % 7.4 % (4.4-11.3); NEUTROPHILS # (AUTO) 10.4 (2.1-6.9); NEUTROPHILS % 83.6 % (38.7-80.0); PLATELET COUNT 243 x10e3/uL (140-360); RED BLOOD COUNT 3.53 x10e6/uL (4.3-5.7); RED CELL DISTRIBUTION WIDTH 15.6 % (11.7-14.4)
[2020-02-19 06:54] LABS: ANION GAP 16.7 mmol/L (8-16); CALCIUM 9.1 mg/dL (8.4-10.2); CHOL/HDL RATIO 3.3 (3.9-4.7); CREATININE, SERUM 4.74 mg/dL (0.72-1.25); POTASSIUM 4.7 mmol/L (3.5-5.1)
[2020-02-19] MEDS: BUDESONIDE/FORMOTEROL 160/4.5MCG INHALER INH PRN (07:25)
[2020-02-19] MEDS: INSULIN LISPRO 100 UNIT/1 ML 3ML VIAL SQ SCH ×4 (07:30→20:05)
[2020-02-19] MEDS: SEVELAMER CARBONATE 800 MG TAB PO SCH ×3 (08:49→16:53)
[2020-02-19] MEDS: APIXAB 2.5 MG TABLET PO SCH ×2 (08:49→21:09)
[2020-02-19] MEDS: AMLODIPINE BESYLATE 10 MG TAB PO SCH (08:50)
[2020-02-19] MEDS: CEFEPIME 1GM/NS 0.9% 50 ML 50 ML IV SCH (08:51)
[2020-02-19] MEDS: GLIMEPIRIDE 2 MG TAB PO SCH (08:57)
[2020-02-19] MEDS ORDERED: CEFEPIME HCL 1 GM VIAL IV SCH (09:00)
[2020-02-19] MEDS ORDERED: CEFEPIME 2 GM/NS 0.9% 100 ML 100 ML IV SCH (09:00)
[2020-02-19] MEDS: BALSAM PERU/CASTOR OIL 60 GM OINT...G. TP SCH (09:37)
--- NOTE | 2020-02-19 10:45 | Progress Note ---
DATE: SUBJECTIVE: This is a 69-year-old gentleman. The patient came in with osteomyelitis of the foot. X-ray findings show soft tissue swelling and also osteopenia on the right foot. Currently, the patient is asymptomatic and feeling cold. No chest pain or shortness of breath. No fever presence. OBJECTIVE: VITAL SIGNS: Temperature is 97.4, pulse of 91, respirations of 20, blood pressure is 148/70, pulse oximetry of 100%. HEENT: Normocephalic and atraumatic. Pupils are reactive. CVS: S1 and S2 normal. Regular rate and rhythm. ABDOMEN: Nontender, nondistended. EXTREMITIES: No clubbing, no cyanosis. Right lower extremity in a dressing. No seepage noted. LABORATORY VALUES: White count 12,000 today, hemoglobin of 9.8, hematocrit of 32.7. Chemistries; sodium of 132, potassium 4.7, BUN of 29, and creatinine . Serology tyson virus not detected. ASSESSMENT: 1. Mr. Guzman with osteomyelitis of right foot. 2. Diabetes mellitus. 3. End-stage renal disease. 4. Hypertension. PLAN: Continue to monitor the patient, Dr. Jimenez is on consult, Dr. Jorge is on consult, Dr. Beard for his end-stage renal disease. Further recommendation per clinical course and also depending on Dr. Jorge's surgical options. MD CLAUDIA Bhakta/MODL /[id number]
[2020-02-19] MEDS: METOPROLOL TARTRATE 50 MG TAB PO SCH (11:46)
[2020-02-19] MEDS ORDERED: ONDANSETRON HCL 4 MG ORAL DISINTEGRATING TAB PO PRN (14:30)
[2020-02-19] MEDS: DEXTROSE 50% SYRINGE 50 ML IV PRN ×3 (16:09→23:05)
--- NOTE | 2020-02-19 17:11 | Consultation ---
DATE OF CONSULTATION: 02/19/2020 Podiatry Consultation Covering for Dr. Javy Jorge. HISTORY OF PRESENT ILLNESS: The patient was seen at bedside. He says he came into the emergency room because he had been having Home Health. He says Home Health was coming 3 times a week. When they came on Thursday, they did notice there was a large amount of maggots to his wound and he got admitted. PAST MEDICAL HISTORY: History of right foot infection, severe PVD, end stage renal disease, diabetes myelitis, CAD. ALLERGIES: NO KNOWN ALLERGIES. SOCIAL HISTORY: No smoking, tobacco, or alcohol use. He lives at home with his sister. REVIEW OF SYSTEMS: Noncontributory, except for various ulcers all throughout the lower extremity on the right foot. LABORATORY DATA: His labs, they are 12.49 for the white blood count. The coronavirus is negative. Neutrophils are 10.4, monocytes 7.4. His blood culture is negative at 24 hours. He is pending arterial Dopplers. PHYSICAL EXAMINATION: Lower extremity: Various ulcers to the plantar aspect, lateral aspect, dorsal aspect, anterior ankle, anterior leg of the foot. There are localized erythema and edema. Right now, the erythema is not streaking or ascending lymphangitis. It is intrinsic minus type of foot. Skin thin, shiny, and atrophic. Pedal pulses not palpable. Protective threshold is absent. ASSESSMENT: 1. Diabetic foot ulcer, grade 3 and grade 4 areas right foot. 2. 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 3. End-stage renal disease. PLAN: At this point, Infectious Disease has him on cefepime, Zyvox, and Flagyl. Currently, doing a combination of Betadine wet-to-dry and Mesalt to the wounds by Wound Care. He is reluctant for a BKA at this point. He is concerned because he says the nurse was coming every 3 times a week and all of a sudden he developed the maggots. Dr. Jorge will continue to follow. Continue on IV antibiotic. Continue local wound care. I discussed with him that he may end up needing the BKA and he is aware, but he would like to see the lower extremity response. We will continue to follow. JENSEN Munoz/CASEY /[id number]
--- NOTE | 2020-02-19 17:48 | NUR ---
Spoke with Dr. Bills to let him know about pt having low blood sugar all day today. Received orders to stop amaryl.
--- NOTE | 2020-02-19 18:56 | Progress Note ---
DATE: Cardiology Progress Note SUBJECTIVE: The patient found sleeping comfortably. Reports foot pain. OBJECTIVE: VITAL SIGNS: Temperature 97.3, heart rate 71, respirations are 18, blood pressure is 107/47, and ox saturation 100% on room air. GENERAL: Well-appearing, found sleeping comfortably. CARDIOVASCULAR: Irregularly irregular. LUNGS: Clear to auscultation. EXTREMITIES: Right foot wound is wrapped and dressed. Arterial Doppler showed patent flow in the distal right lower extremity, although it was diminished velocity and multiphasic. LABORATORY DATA: Reviewed. CARDIOVASCULAR MEDICATIONS: Reviewed. IMPRESSION: 1. Peripheral arterial disease. 2. Foot wound with gangrene. 3. Hypertension. 4. Hyperlipidemia. 5. Atrial fibrillation. 6. End-stage renal disease. RECOMMENDATIONS: On review of his arterial Doppler, he still has flow in the right lower extremity tibial vessels. There is multiphasic flow with reduced velocities. There is no vessel that is occluded. No further intervention Vascular martinez is required at this point in time. I suspect the patient likely will need a [id number] amputation. Continue wound care and antibiotics per primary team. Bassem Olguin DO BM/MODL /[id number]
[2020-02-20] VITALS (8 sets, daily range): BP systolic 93–122; BP diastolic 52–93
[2020-02-20] MEDS: LINEZOLID 600 MG/D5W 300ML 300 ML IV SCH ×2 (03:30→16:30)
[2020-02-20] MEDS: METRONIDAZOLE 500MG/NS 100ML 100 ML IV SCH ×3 (06:00→21:59)
[2020-02-20] MEDS: UMECLIDINIUM BROMIDE INH SCH (06:00)
--- NOTE | 2020-02-20 07:00 | NUR ---
RECEIVED BEDSIDE SHIFT REPORT FROM OFF GOING NURSE. PATIENT IS RESTING IN BED. NO ACUTE DISTRESS NOTED AT THIS TIME. CALL LIGHT WITHIN REACH. BED IN THE LOWEST POSITION. BED ALARM ON. Addendum: 02/20/20 at 1951 by Luc Servin RN WRONG INFORMATION
[2020-02-20] MEDS: INSULIN LISPRO 100 UNIT/1 ML 3ML VIAL SQ SCH ×4 (07:30→21:00)
[2020-02-20] MEDS: BUDESONIDE/FORMOTEROL 160/4.5MCG INHALER INH PRN ×2 (07:38→19:50)
[2020-02-20] MEDS: SEVELAMER CARBONATE 800 MG TAB PO SCH ×3 (08:10→16:51)
[2020-02-20] MEDS: CEFEPIME 1GM/NS 0.9% 50 ML 50 ML IV SCH (08:10)
[2020-02-20] MEDS: APIXAB 2.5 MG TABLET PO SCH ×2 (08:10→21:59)
[2020-02-20] MEDS: AMLODIPINE BESYLATE 10 MG TAB PO SCH (09:00)
[2020-02-20] MEDS: BALSAM PERU/CASTOR OIL 60 GM OINT...G. TP SCH (09:25)
[2020-02-20] MEDS ORDERED: SODIUM CHLORIDE 0.9% 1000ML 2,000 ML ONE (09:48)
--- NOTE | 2020-02-20 09:58 | Progress Note ---
DATE: Infectious Disease SUBJECTIVE: The patient is seen and evaluated with the nurse. Right foot dressing taken down and wound examined with the nurse in the room. During this visit and wound evaluation, no maggots noted as it was described earlier. Wound dressing exchanged. REVIEW OF SYSTEMS: No nausea, vomiting, fever, chills, chest pain, shortness of breath, headache, dysuria, or polyuria. OBJECTIVE: VITAL SIGNS: Temperature is 97.3, pulse is 76, respirations 19, blood pressure 111/58. GENERAL: Alert and oriented. Appetite is good. CV: S1 and S2. CHEST: Equal expansion. Clear to auscultation. No acute distress. HEENT: Moist. No pallor. No JVD. EXTREMITIES: Right lower extremity with multiple wounds, on top of the foot, also distal tib-fib area, also lateral foot, also between the 1st and 2nd toe, multiple wounds, all seem to be necrotic with gangrene as mentioned above. No maggots noted during this wound exam. MEDICATIONS: Medication list is reviewed. As far as Infectious Disease point of view, patient is on cefepime, Flagyl and Zyvox. LABORATORY STUDIES: White count 12.49 yesterday with a hemoglobin of 9.8, and platelet count of 243. No new CBC or BMP from today. Serology: Coronavirus PCR on 02/17/2020 and hepatitis panel negative. MICROBIOLOGY: Blood culture negative. RADIOLOGY STUDIES: No new radiology studies available. ASSESSMENT AND PLAN: This is a pleasant 69-year-old gentleman with complicated past medical history, he has right foot/distal tibia wounds that are not healing. He has been battling this wound for quite some time now. Cardiology note reviewed stating that the Doppler showed the patient still has flow in the right lower extremity tibial vessels. There is a multiphasic flow with reduced velocities and they did not see any vessels that there are occluded and no further intervention vascular martinez is required as was recommended by Cardiology point of view, however, they suspected that the patient most likely will need BKA. We continue with antibiotics at this point, which are Zyvox, cefepime and Flagyl; cefepime and Flagyl were re-dosed yesterday. The patient with a chronic renal insufficiency. Other medical conditions includin. Renal insufficiency. 2. Diabetes. 3. Anemia. 4. Debility. 5. Hypertension. 6. Atrial fibrillation. 7. Peripheral arterial disease. 8. The patient with end-stage renal disease, seen by Nephrology and continue antibiotics. The patient at risk for BKA. Discussed with Dr. Jimenez in details. Please refer to chart for more information. MD IVETTE Lino/CASEY /[id number]
--- NOTE | 2020-02-20 14:38 | NUR ---
2.7L OF FLUID REMOVED WITH HD.
[2020-02-20] MEDS: AMIODARONE HCL 200 MG TAB PO SCH (15:29)
--- NOTE | 2020-02-20 19:10 | Progress Note ---
DATE: 02/20/2020 Cardiology progress note SUBJECTIVE: The patient denies chest pain or shortness of breath. He was seen during hemodialysis. OBJECTIVE: VITAL SIGNS: Temperature 97.1 degrees, pulse 77, respiratory rate 18, blood pressure 122/64, and oxygen saturation 97% on room air. GENERAL: Awake, alert, in no acute distress. LUNGS: Clear to auscultation bilaterally. No wheezes or crackles. CARDIOVASCULAR: Normal rate. Irregularly irregular rhythm. No murmur. Normal S1, S2. ABDOMEN: Soft, nontender. EXTREMITIES: Right foot with dressing intact. CARDIAC MEDICATIONS: 1. Amiodarone 200 mg p.o. Thursday, Thursday, and Thursday. 2. Apixaban 2.5 mg p.o. q.12 hours. 3. Metoprolol tartrate 50 mg p.o. Thursday, Thursday, , and Thursday. 4. Amlodipine 10 mg p.o. daily. LABORATORY DATA: None today. TELEMETRY: Personally reviewed and interpreted, revealing atrial fibrillation, rate controlled. IMPRESSION: 1. Peripheral arterial disease. 2. Right foot wound with gangrene. 3. Hypertension. 4. Hyperlipidemia. 5. Atrial fibrillation. 6. End-stage renal disease, on hemodialysis. RECOMMENDATIONS: No intervention is indicated from a vascular standpoint based on his arterial Doppler. Continue current cardiac medications. Monitor the patient on telemetry. Antibiotics per Infectious Disease. Wound care per Podiatry. We will follow wound healing. Thank you for this consult. We will continue to follow. Qiana Broderick MD ABS/MODL /[id number]
--- NOTE | 2020-02-20 19:25 | NUR ---
BEDSIDE SHIFT REPORT GIVEN TO ONCOMING NURSE. PATIENT IS RESTING IN BED. NO ACUTE DISTRESS NOTED. CALL LIGHT WITHIN REACH. BED IN THE LOWEST POSITION.
--- NOTE | 2020-02-20 19:52 | NUR ---
RECEIVED PT IN BED AOX3 RESPIRATIONS ARE EVEN AND UNLABOERED . WOUNDS RT HEEL,LEFT KNEE, RT KNNEE .RT THIRD TOE EXUDATE.CALL LIGHT WITH IN REACH.CONTINUE TO MONITOR
[2020-02-21] VITALS (8 sets, daily range): BP systolic 103–134; BP diastolic 56–86
--- NOTE | 2020-02-21 00:21 | Consultation ---
DATE OF CONSULTATION: 02/20/2020 REASON FOR CONSULTATION: Recurrent admission with worsening condition, diabetic foot ulcers, and infection of right lower extremity. CHIEF COMPLAINT: Mr. Guzman is most pleasant 69-year-old gentleman, well-known from previous admissions. He has longstanding ulcerations, abscessing, cellulitis, and osteomyelitis of the right lower extremity ongoing since admission, back in November of this year. He is unsure how long the ulcer may have been present prior to his previous admission. The patient on last admission had an I and D and a revascularization attempt while in house as well as discharge to [facility] on IV antibiotics. He ultimately was discharged to home health and has been receiving home health through the home health agency. He has been lost to follow up until readmission here today. PAST MEDICAL HISTORY: Positive for diabetes, history of coronary artery disease, hyperlipidemia, hypertension, atrial fibrillation, osteomyelitis, COPD. MEDICATIONS: He is on multiple medications, which are well documented elsewhere within the chart. PAST SURGICAL HISTORY: Includes a history of appendectomy and multiple ankle surgeries. SOCIAL HISTORY: He denies a history of IV drug abuse. No smoking. He is a past smoker, but states he has not smoked in many years. He does not drink alcohol. REVIEW OF SYSTEMS: Otherwise negative. He specifically denies a history of chest pains, nausea, vomiting, or fever. PHYSICAL EXAMINATION: Physical evaluation of lower extremity: VASCULAR STATUS: The patient has nonpalpable pedal pulses in either dorsalis pedis or posterior tib. Review of his chart does show a vascular evaluation by Dr. Olguin, indicating that the tibial artery is open and although circulation is compromised. There is nothing more that can be done to improve the blood flow to his extremity. NEUROLOGICAL: The patient has a loss of protective sensation as evidenced by [place] monofilament testing. DERMATOLOGICAL: Multiple necrotic areas on his foot, anterior leg, anterior ankle, dorsum of the foot. The first intermetatarsal space has a very deep infected wound. There are fractures on the radiographic report of the lesser metatarsals and a clinical indication of osteomyelitis. At this point, he is ambulatory on his right lower extremity. However, this is very limited. DIAGNOSIS: Chronic osteomyelitis, nonhealing wounds, diabetic foot ulcerations in a patient with end-stage renal disease, diabetes, and poor circulation. It is unlikely that he will heal the wounds in his present condition. I discussed with the patient the opportunity for a below-knee amputation to ensure healing at this point, or at least increase his chances of healing the surgical wound. The patient at this point is unwilling to consider below-knee amputation. We did discuss the possibility of increased local wound care with aggressive surgical debridements of all wounds in the lower extremity and possibly a transmetatarsal amputation or at least amputation of the most infected bones, which would likely be the 2nd metatarsal and toe. MRI has been ordered in order to further ascertain the extent of osteomyelitis how far proximal it actually goes. Should the osteomyelitis extend significantly beyond the distal forefoot, his odds of healing any distal amputation would be very low and not recommended. The patient understands this and is willing to undergo the MRI for further surgical determination. We will re-evaluate and possibly schedule debridement after an MRI and partial amputation of the foot. JENSEN Canela/CASEY /[id number]
[2020-02-21] MEDS: LINEZOLID 600 MG/D5W 300ML 300 ML IV SCH ×2 (04:00→15:42)
[2020-02-21] MEDS: METRONIDAZOLE 500MG/NS 100ML 100 ML IV SCH ×3 (05:28→22:00)
--- NOTE | 2020-02-21 05:40 | NUR ---
PT RESTING ,DENIES PAIN CALL LIGHT WITH IN REACH .CONTINUE TO MONITOR
[2020-02-21] MEDS: UMECLIDINIUM BROMIDE INH SCH (05:48)
--- NOTE | 2020-02-21 07:13 | NUR ---
BEDSIDE REPORT GIVEN TO THE ONCOMING NURSE.
--- NOTE | 2020-02-21 07:15 | NUR ---
Received bedside shift report from night nurse. Patient sitting up in chair, denies pain at this time. No visible signs of distress noted. Call light within reach.
--- NOTE | 2020-02-21 07:15 | NUR ---
BEDSIDE REPORT GIVEN TO THE ONCOMING NURSE.
[2020-02-21] MEDS: INSULIN LISPRO 100 UNIT/1 ML 3ML VIAL SQ SCH ×4 (07:30→21:00)
[2020-02-21] MEDS: BUDESONIDE/FORMOTEROL 160/4.5MCG INHALER INH PRN (07:45)
[2020-02-21] MEDS: APIXAB 2.5 MG TABLET PO SCH ×2 (09:13→21:27)
[2020-02-21] MEDS: SEVELAMER CARBONATE 800 MG TAB PO SCH ×3 (09:13→18:04)
[2020-02-21] MEDS: CEFEPIME 1GM/NS 0.9% 50 ML 50 ML IV SCH (09:13)
[2020-02-21] MEDS: AMLODIPINE BESYLATE 10 MG TAB PO SCH (09:14)
--- NOTE | 2020-02-21 10:13 | Progress Note ---
DATE: SUBJECTIVE: The patient is seen and evaluated. Available labs and notes reviewed. Discussed with staff. No new events. REVIEW OF SYSTEMS: No nausea, vomiting, fever, chills, chest pain, shortness of breath, headache, dysuria, polyuria, rash, cough. OBJECTIVE: VITAL SIGNS: Temperature 96, pulse is 78, respirations 19, blood pressure 112/56. GENERAL: Alert and oriented, in no acute distress. CV: S1, S2. CHEST: Equal expansion. Clear to auscultation. No acute distress. HEENT: Moist. No pallor. No JVD. EXTREMITIES: Right foot multiple wounds, few necrotic. Podiatry note reviewed. Apparently discussed with the patient in regard to BKA, also maybe TMA at the least. Podiatry recommended that "his odds of healing any distal amputation would be very low and not recommended." MRI in progress to evaluate the level of amputation, most likely will end up with BKA. Further management of this patient is based on findings on laboratory and physical examination, especially the MRI. MEDICATIONS: Medication list reviewed. As far as Infectious Disease point of view, the patient is on cefepime, Flagyl, and Zyvox, renally dosed. LABORATORY STUDIES: White count of 12.49 on 02/19/2020. No new CBC or BMP available from today. MICROBIOLOGY: Blood culture negative on 02/17/2020. RADIOLOGY STUDIES: No new radiology studies available. ASSESSMENT AND PLAN: 1. Infected right foot with concerns of peripheral vascular disease and osteomyelitis, follow with MRI. Please see above. 2. Renal insufficiency. 3. Diabetes. 4. Anemia. 5. Hypertension. 6. Debility. 7. Atrial fibrillation. 8. Peripheral arterial disease. 9. Followup with MRI, distal amputation is not recommended by Podiatry. May need BKA. Amputation level most likely depends on the MRI result. Discussed with Dr. Jimenez in details. Please refer to chart for more information. Dictated by Stephen Siddiqui PA-C (Al) Oscar Jimenez MD /MODL /[id number]
--- NOTE | 2020-02-21 10:25 | NUR ---
ASSESSMENT: Spiritual concern Pt worried about possible amputation. Pt there is a possibility of losing foot due to illness. Intervention: Provided unhurried empathic listening. Facilitated illness review and storytelling. Provided prayer. Provided information on how to reach catalogue clerk, if needed. Outcome: Pt expressed appreciation for visit. Will follow as able. CITLALLI KEARNEY Grinder [employer]er Spiritual Care Department O: [phone]
[2020-02-21] MEDS: METOPROLOL TARTRATE 50 MG TAB PO SCH (12:00)
--- NOTE | 2020-02-21 12:44 | Diagnostic Imaging Report ---
TECHNIQUE: Magnetic resonance imaging of the RIGHT foot was performed WITHOUT injected contrast. HISTORY: Pain COMPARISON: February 17, 2020 DISCUSSION: Multiple soft tissue ulcerations most prominent plantar to the third MTP joint: * Septic arthritis of the third MTP joint with osteomyelitis involving the metatarsal head and phalanges. Adjacent soft tissue abscess extending into the second intermetatarsal space. * Osteomyelitis of the second metatarsal head and phalanges. Soft tissue ulceration involving the first intermetatarsal space: * Osteomyelitis of the first metatarsal head and proximal phalanx. Soft tissue ulceration involving the lateral forefoot: * Osteomyelitis of the fifth metatarsal head and proximal phalanx. Soft tissue ulceration of the dorsal midfoot without underlying osteomyelitis. Postinfectious sequela about the fourth MTP joint with deformity and chronic appearing bone marrow signal. IMPRESSION: Multifocal osteomyelitis of the forefoot about the first, second, third, and fifth MTP joints as above. Signed by: Dr. Wilbert Bowen M.D. on 02/21/2020 12:41 PM
[2020-02-21] MEDS: BALSAM PERU/CASTOR OIL 60 GM OINT...G. TP SCH (13:00)
[2020-02-21] MEDS: POVIDONE IODINE 10% 120 ML BTL EXT SCH (13:00)
--- NOTE | 2020-02-21 13:00 | NUR ---
Wound care completed as ordered. Patient tolerated dressing change well. Denies pain.
--- NOTE | 2020-02-21 13:49 | Progress Note ---
DATE: 02/21/2020 Cardiology Progress Note SUBJECTIVE: The patient denies chest pain or shortness of breath. OBJECTIVE: VITAL SIGNS: Temperature 97.3 degrees, pulse 93, respiratory rate 19, blood pressure 103/67, and oxygen saturation 100% on room air. GENERAL: Elderly man, in no acute distress. Awake and alert. LUNGS: Clear to auscultation bilaterally. No wheezes or crackles. CARDIOVASCULAR: Normal rate. Irregularly irregular rhythm. No murmur. Normal S1 and S2. ABDOMEN: Soft and nontender. EXTREMITIES: Right foot with dressing intact. CARDIAC MEDICATIONS: Amlodipine 10 mg p.o. daily, apixaban 2.5 mg p.o. q.12 hours, amiodarone 200 mg p.o. Thursday, Thursday, Thursday, metoprolol tartrate 50 mg Thursday, Thursday, , Thursday. LABORATORY DATA: None today. Telemetry was personally reviewed and interpreted revealing atrial fibrillation. IMPRESSION: 1. Peripheral arterial disease. 2. Right foot wound with gangrene. 3. Hypertension. 4. Hyperlipidemia. 5. Atrial fibrillation. 6. End-stage renal disease, on hemodialysis. RECOMMENDATIONS: No intervention is indicated from a vascular standpoint based on his arterial Doppler. Continue current cardiac medications. Monitor the patient on telemetry. Antibiotics per Infectious Disease. Wound care per podiatry. We will follow wound healing. He is high risk for BKA. Thank you for this consult. We will continue to follow. Qiana Broderick MD ABS/MODL /[id number]
--- NOTE | 2020-02-21 17:05 | Progress Note ---
DATE: The patient seen today on rounds, doing well. He just got back from his MRI, no results of yet. He is resting comfortably and awaiting lunch. His concerns are the same. He wants to limit the amount of tissue loss with any surgical debridement or amputation. We will continue his dressing changes, IV antibiotics, and await the MRI results to consider surgical debridement level. He is unwilling to consider below-knee amputation as before and anxious to proceed with the next stage to try and eradicate infection and allow for a healed functional lower extremity. I will continue to follow labs evaluated and no significant changes at this point. Wound is basically unchanged as well. JENSEN Canela/CASEY /[id number]
--- NOTE | 2020-02-21 19:30 | NUR ---
Bedside shift report given to night nurse. Patient resting at this time, call light within reach.
--- NOTE | 2020-02-21 19:52 | NUR ---
RECEIVED PT IN BED AOX3 RESPIRATIONS ARE EVEN AND UNLABOERED . DRESSING TO THE RT HEEL,, RT KNEE.CALL LIGHT WITH IN REACH.CONTINUE TO MONITOR
[2020-02-22] VITALS (8 sets, daily range): BP systolic 113–140; BP diastolic 58–74
[2020-02-22] MEDS: UMECLIDINIUM BROMIDE INH SCH (06:00)
[2020-02-22] MEDS: LINEZOLID 600 MG/D5W 300ML 300 ML IV SCH ×2 (06:29→16:46)
[2020-02-22] MEDS: METRONIDAZOLE 500MG/NS 100ML 100 ML IV SCH ×3 (06:29→22:00)
--- NOTE | 2020-02-22 07:05 | NUR ---
Received bedside shift report. Patient resting in bed, awake, pleasant. Denies pain at this time. No visible signs of distress noted. Call light within reach.
--- NOTE | 2020-02-22 07:19 | NUR ---
BEDSIDE REPORT GIVEN TO THE ON COMING NURSE
[2020-02-22] MEDS: SEVELAMER CARBONATE 800 MG TAB PO SCH ×3 (08:00→17:14)
--- NOTE | 2020-02-22 08:00 | NUR ---
Dialysis nurse at bedside. Morning medications held. Patient resting, denies pain at this time. Call light within reach.
[2020-02-22] MEDS ORDERED: SODIUM CHLORIDE 0.9% 1000ML 2,000 ML ONE (08:12)
[2020-02-22] MEDS: AMLODIPINE BESYLATE 10 MG TAB PO SCH ×2 (08:20→14:55)
--- NOTE | 2020-02-22 08:29 | NUR ---
Dr. Patrick Cabrera notified of SIRS alert on sepsis screen. No new orders at this time.
[2020-02-22] MEDS: INSULIN LISPRO 100 UNIT/1 ML 3ML VIAL SQ SCH ×4 (08:30→21:00)
[2020-02-22 09:46] LABS: BASOPHILS # (AUTO) 0.1 (0.0-0.1); EOSINOPHILS # (AUTO) 0.1 (0.0-0.4); EOSINOPHILS % 1.1 % (0.0-6.0); HEMOGLOBIN 9.2 g/dL (14.0-18.0); LYMPHOCYTES # (AUTO) 0.8 (1.0-3.2); LYMPHOCYTES % 7.9 % (18.0-39.1); MEAN CORPUSCULAR HEMOGLOBIN 28.1 pg (28-32); MEAN CORPUSCULAR HGB CONC 30.7 g/dL (31-35); MEAN CORPUSCULAR VOLUME 91.7 fL (81-99); MONOCYTES # (AUTO) 0.7 (0.2-0.8); MONOCYTES % 6.7 % (4.4-11.3); NEUTROPHILS # (AUTO) 8.5 (2.1-6.9); NEUTROPHILS % 81.2 % (38.7-80.0); PLATELET COUNT 232 x10e3/uL (140-360); RED BLOOD COUNT 3.27 x10e6/uL (4.3-5.7); RED CELL DISTRIBUTION WIDTH 15.9 % (11.7-14.4)
[2020-02-22 09:57] LABS: ALBUMIN 2.7 g/dL (3.5-5.0); ALBUMIN/GLOBULIN RATIO 0.7 (0.8-2.0); ANION GAP 16.8 mmol/L (8-16); CALCIUM 8.5 mg/dL (8.4-10.2); CREATININE, SERUM 4.63 mg/dL (0.72-1.25); POTASSIUM 4.8 mmol/L (3.5-5.1)
--- NOTE | 2020-02-22 10:39 | Progress Note ---
DATE: SUBJECTIVE: The patient is seen and evaluated. Available labs and notes reviewed. Dialysis currently in room. The patient is comfortable in bed. REVIEW OF SYSTEMS: No nausea, vomiting, fever, chills, chest pain, shortness of breath, headache, dysuria, or polyuria. PHYSICAL EXAMINATION: VITAL SIGNS: Temperature 96.3., pulse 101, respiration 18, blood pressure 118/74. GENERAL: Alert and oriented, dialysis in room. CV: S1, S2. CHEST: Equal expansion, clear to auscultation. No acute distress. ABDOMEN: Soft, nontender. No distention. HEENT: Moist. No pallor. No JVD. EXTREMITIES: Right foot multiple wounds all on local care with necrotic tissue. MEDICATIONS: Medication list reviewed. The patient remains on Zyvox, cefepime and Flagyl. LABORATORY STUDIES: White count of 12.49 on 02/19/2020. No new CBC or BMP from today. MICROBIOLOGY: No new microbiology studies available. Blood culture from 02/17/2020 was negative. Serology; no serology available. RADIOLOGY: MRI of the foot on 02/11/2020 showed multifocal osteomyelitis of the forefoot about the 1st, 2nd, 3rd, and 5th MTP joint. Also showing septic arthritis of the 3rd MTP joint with osteomyelitis involving the metatarsal head. The phalanges adjacent soft tissue abscess extending into the 2nd intermetatarsal space. ASSESSMENT AND PLAN: 1. Infected right foot with multiple necrotic wounds. 2. Osteomyelitis. 3. Abscess. 4. Peripheral vascular disease. 5. Renal insufficiency on dialysis. 6. Diabetes. 7. Amputation. 8. Atrial fibrillation. 9. Anemia of chronic disease. 10. Severe debility, multifactorial. 11. Continue with IV antibiotics as mentioned above. The patient at risk for amputation and he does understand that he may end up with some sort of amputation, but the level is not clear yet. We will continue with wound care. Guarded prognosis. Discussed with Dr. Jimenez in details. Thank you for this dictation. Please refer to chart for more information. Dictated by Stephen Siddiqui PA-C (Al) Oscar Jimenez MD /MODL /[id number]
[2020-02-22] MEDS: BALSAM PERU/CASTOR OIL 60 GM OINT...G. TP SCH (14:30)
[2020-02-22] MEDS: CEFEPIME 1GM/NS 0.9% 50 ML 50 ML IV SCH (14:30)
[2020-02-22] MEDS: POVIDONE IODINE 10% 120 ML BTL EXT SCH (14:30)
--- NOTE | 2020-02-22 14:30 | NUR ---
Wound care to right foot and left first toe done as ordered. Tolerated dressing change well, denies pain.
[2020-02-22] MEDS: APIXAB 2.5 MG TABLET PO SCH ×2 (14:53→21:00)
[2020-02-22] MEDS: AMIODARONE HCL 200 MG TAB PO SCH (14:53)
--- NOTE | 2020-02-22 15:00 | NUR ---
Hemodialysis completed without incident. 3 liters removed. Vital signs remain in stable condition. Call light within reach.
[2020-02-22] MEDS ORDERED: SODIUM CHLORIDE 0.9% 250ML 250 ML ONE (15:24)
--- NOTE | 2020-02-22 18:20 | Progress Note ---
DATE: The patient was seen today in followup of the MRI results. The patient does have septic arthritis with severe osteomyelitis of the entire forefoot. It does appear to be limited primarily to the forefoot with significant necrotic tissue present. We discussed once again the opportunities for healing without a below-knee amputation. He understands the risks associated with a transmetatarsal amputation, which would be the most distal procedure that might possibly heal. He also understands the potential for this wound not to heal and natural progression to a below-knee either with or without the proposed surgery. The patient has agreed to accept all risks inherent to the procedure. Surgical consent today and surgery planned for tomorrow. He is a Thursday, Thursday, Thursday dialysis and had dialysis today. This was discussed with Dr. Beard, who has cleared him for surgery and he otherwise will be following with me in-house postoperatively until discharge. He can go home sometime next week [facility] or to home health for continued IV antibiotics and wound care as needed. All questions asked were answered and the patient agreed to accept all risks inherent to the procedure. Plan is for deep wound debridement, primary flap closure, a transmetatarsal amputation, and tendo-Achilles lengthening to prevent recurrent distal ulceration. N.p.o. midnight tonight. JENSEN Canela/CASEY /[id number]
--- NOTE | 2020-02-22 19:00 | NUR ---
Bedside shift report given to night nurse. Patient in stable condition.
--- NOTE | 2020-02-22 21:05 | Progress Note ---
DATE: 02/22/2020 Cardiology Progress Note SUBJECTIVE: The patient denies chest pain or shortness of breath. OBJECTIVE: VITAL SIGNS: Temperature 96.5 degrees, pulse 107, respiratory rate 18, blood pressure 121/58, and oxygen saturation 93% on room air. GENERAL: Awake and alert elderly man, in no acute distress. LUNGS: Clear to auscultation bilaterally. No wheezes or crackles. CARDIOVASCULAR: Normal rate, irregularly irregular. No murmur. Normal S1 and S2. ABDOMEN: Soft and nontender. EXTREMITIES: Right foot with dressing intact. CARDIAC MEDICATIONS: Amlodipine 10 mg p.o. daily; apixaban 2.5 mg p.o. q.12 hours; amiodarone 200 mg p.o. Thursday, Thursday, and Thursday; metoprolol tartrate 50 mg Thursday, Thursday, , and Thursday. LABORATORY DATA: WBC 10.45, hemoglobin 9.2, hematocrit 30, and platelets 232. Sodium 135, potassium 4.8, chloride 97, CO2 of 26, BUN 19, and creatinine 4.63. IMPRESSION: 1. Right foot with multiple necrotic wounds and osteomyelitis. 2. Peripheral arterial disease. 3. Hypertension. 4. Hyperlipidemia. 5. Atrial fibrillation. 6. End-stage renal disease, on hemodialysis. RECOMMENDATIONS: No intervention is indicated from a Vascular standpoint based on his arterial Doppler. Continue current cardiac medications. Monitor the patient on telemetry. Antibiotics per Infectious Disease. Wound care per Podiatry. We will follow wound healing. He is high risk for BKA. Thank you for this consult. We will continue to follow. Qiana Broderick MD ABS/MODL /[id number]
[2020-02-23] VITALS (8 sets, daily range): BP systolic 110–130; BP diastolic 46–62
[2020-02-23] MEDS: LINEZOLID 600 MG/D5W 300ML 300 ML IV SCH ×2 (04:00→16:57)
[2020-02-23] MEDS: METRONIDAZOLE 500MG/NS 100ML 100 ML IV SCH ×3 (06:30→21:48)
[2020-02-23] MEDS: UMECLIDINIUM BROMIDE INH SCH (07:43)
[2020-02-23] MEDS: CEFEPIME 1GM/NS 0.9% 50 ML 50 ML IV SCH (09:53)
[2020-02-23] MEDS: SEVELAMER CARBONATE 800 MG TAB PO SCH ×3 (09:53→16:57)
[2020-02-23] MEDS: POVIDONE IODINE 10% 120 ML BTL EXT SCH (09:53)
[2020-02-23] MEDS: AMLODIPINE BESYLATE 10 MG TAB PO SCH (09:54)
[2020-02-23] MEDS: BALSAM PERU/CASTOR OIL 60 GM OINT...G. TP SCH (09:54)
[2020-02-23] MEDS: APIXAB 2.5 MG TABLET PO SCH ×2 (09:54→21:00)
[2020-02-23] MEDS: INSULIN LISPRO 100 UNIT/1 ML 3ML VIAL SQ SCH ×4 (09:55→21:00)
--- NOTE | 2020-02-23 11:04 | Progress Note ---
DATE: SUBJECTIVE: The patient is seen and evaluated. Available labs and notes reviewed. REVIEW OF SYSTEMS: No nausea, vomiting, fever, chills, chest pain, shortness of breath, headache, dysuria, polyuria, rash, or cough. PHYSICAL EXAMINATION: VITAL SIGNS: Temperature is 97.5, pulse is 91, respiration 18, and blood pressure 130/62. GENERAL: Alert and oriented, no acute distress. CV: S1 and S2. CHEST: Equal expansion. Clear to auscultation. No acute distress. ABDOMEN: Soft and nontender. No distention. HEENT: Moist. No pallor. No JVD. EXTREMITIES: Right lower extremity with multiple wounds from the toes to the distal end of the tib-fib area including the ankle. MEDICATIONS: Medication list reviewed and as far as Infectious Disease point of view, the patient is on cefepime, Zyvox, and Flagyl IV. LABORATORY STUDIES: No new laboratory studies as far as CBC, BMP, or serology. MICROBIOLOGY: No new microbiology studies available. RADIOLOGY: No new radiology studies available. ASSESSMENT AND PLAN: 1. Osteomyelitis of the right foot. 2. Septic joint. 3. Abscess. 4. End-stage renal disease. 5. Diabetes. 6. Atrial fibrillation. 7. Anemia of chronic disease. 8. Severe debility. 9. Peripheral vascular disease. 10. Renal insufficiency, on dialysis. 11. Continue with the IV antibiotic. Podiatry notes reviewed. Plan is for deep wound debridement and primary flap closure and transmetatarsal amputation and tendon Achilles lengthening to prevent recurrent distal ulceration. The patient was n.p.o. last night. Continue with the wound care and antibiotics and followup postsurgical. Please refer to chart for more information. Discussed with Dr. Jimenez in details. Dictated by Stephen Siddiqui PA-C (Al) Oscar Jimenez MD /MODL /[id number]
[2020-02-23] MEDS ORDERED: BACITRACIN 50,000 UNIT VIAL ONE (11:25)
[2020-02-23] MEDS ORDERED: BUPIVACAINE HCL 0.5% INJ 30 ML VIAL INJ ONE (11:25)
--- NOTE | 2020-02-23 11:50 | NUR ---
Patient left for surgery at 1130. No issues or complaints at this time.
[2020-02-23] MEDS: METOPROLOL TARTRATE 50 MG TAB PO SCH (12:00)
--- NOTE | 2020-02-23 12:39 | Progress Note ---
DATE: 02/23/2020 Cardiology progress note SUBJECTIVE: The patient denies chest pain, but does report he was short of breath last night. OBJECTIVE: VITAL SIGNS: Temperature 97.5 degrees, pulse 91, respiratory rate 18, blood pressure 130/62, oxygen saturation 98% on room air. GENERAL: Elderly man, no acute distress. Awake and alert. LUNGS: Clear to auscultation bilaterally. No wheezes or crackles. CARDIOVASCULAR: Normal rate. Irregularly irregular. No murmur. Normal S1 and S2. ABDOMEN: Soft, nontender. EXTREMITIES: Right foot with dressing intact. CARDIAC MEDICATIONS: 1. Apixaban 2.5 mg p.o. q.12 hours. 2. Amlodipine 10 mg p.o. daily. 3. Amiodarone 200 mg p.o. Thursday, Thursday, Thursday. 4. Metoprolol tartrate 50 mg p.o. Thursday, , Thursday. LABORATORY DATA: None today. TELEMETRY: Personally reviewed and interpreted revealing atrial fibrillation. IMPRESSION: 1. Right foot with multiple necrotic wounds and osteomyelitis. 2. Peripheral arterial disease. 3. Hypertension. 4. Hyperlipidemia. 5. Atrial fibrillation. 6. End-stage renal disease, on hemodialysis. RECOMMENDATIONS: No intervention is indicated from a vascular standpoint based on his arterial Doppler. Continue current cardiac medications. Monitor the patient on telemetry. Antibiotics per Infectious Disease. Wound care per Podiatry. We will monitor wound healing. He is high risk for BKA given his complaint of shortness of breath. Obtain BNP and chest x-ray for further evaluation. Volume management per Nephrology given hemodialysis. Thank you for this consult. We will continue to follow. Qiana Broderick MD ABS/MODL /[id number]
--- NOTE | 2020-02-23 14:11 | Diagnostic Imaging Report ---
EXAMINATION: CHEST SINGLE (PORTABLE) INDICATION: Cellulitis COMPARISON: Chest radiograph 12/09/2019 FINDINGS: LINES/TUBES:EKG leads overlie the chest. LUNGS:The lungs are hyperinflated. There is left basilar opacity silhouetting the left nidia diaphragm. Right basilar subsegmental atelectasis. PLEURA:Small bilateral pleural effusions. No pneumothorax. MEDIASTINUM:Cardiomediastinal silhouette is stably enlarged. BONES/SOFT TISSUES:No acute osseous injury. ABDOMEN:No free air under the diaphragm. IMPRESSION: Cardiomegaly, mild pulmonary interstitial edema, and small bilateral pleural effusions. Bibasilar patchy opacities, most likely subsegmental atelectasis. Signed by: Emilee Cottrell MD on 02/23/2020 2:07 PM
[2020-02-23 16:55] LABS: ANION GAP 16.4 mmol/L (8-16); CREATININE, SERUM 3.8 mg/dL (0.72-1.25); POTASSIUM 4.4 mmol/L (3.5-5.1)
[2020-02-23] MEDS ORDERED: PROPOFOL IV EMULSION 10 MG/ML 20 ML VIAL ONE (18:22)
[2020-02-23] MEDS ORDERED: LIDOCAINE HCL 2% LOCAL INJ 5 ML SDV VIAL INJ ONE (18:22)
[2020-02-23] MEDS ORDERED: EPHEDRINE SULFATE INJ 50 MG/ML VIAL ONE (18:22)
--- NOTE | 2020-02-23 19:00 | NUR ---
Bedside shift report received from morning nurse. Pt alert and oriented, lying in bed HOB 45 degrees. Pt denies pain at this time. S/P Right TMA, lilliang C/D/I. Call light within reach. Bed low and locked.
[2020-02-24] VITALS (8 sets, daily range): BP systolic 22–133; BP diastolic 47–94
--- NOTE | 2020-02-24 03:12 | Operative Report ---
DATE OF PROCEDURE: SURGEON: Javy Jorge DPM PREOPERATIVE DIAGNOSES: Osteomyelitis, multiple bones, dorsum of the tarsus as well as 1st, 2nd, 3rd and 5th metatarsophalangeal joints. Chronic osteomyelitis of 4th metatarsophalangeal joint as well. Multiple chronic wounds, posterior heel of the right foot, dorsum of the mid foot on the right foot, and anterior leg and ankle right foot, all very large and very deep. POSTOPERATIVE DIAGNOSES: Osteomyelitis, multiple bones, dorsum of the tarsus as well as 1st, 2nd, 3rd and 5th metatarsophalangeal joints. Chronic osteomyelitis of 4th metatarsophalangeal joint as well. Multiple chronic wounds, posterior heel of the right foot, dorsum of the mid foot on the right foot, and anterior leg and ankle right foot, all very large and very deep. TITLE OF THE OPERATION: 1. Transmetatarsal amputation of the right foot. 2. Debridement full thickness through skin, subcutaneous tissue, and bone. 3. Multiple wounds, right foot, particularly posterior heel, dorsum of the mid foot, and anterior leg. 4. Flap closure of the wounds on the right foot. HEMOSTASIS: Thigh tourniquet 300 mmHg. ANESTHESIA: MAC sedation. PROCEDURE IN DETAIL: The patient was taken to the operating room in a mildly sedated state and placed on the operating table in a supine position. Following induction of an IV sedation, the areas of surgery were blocked with 0.5 Marcaine, approximately 20 mL in total. Attention was then directed to the wounds and utilizing a #10 scalpel blade, starting with the anterior leg and ankle wound, full thickness through skin, subcutaneous tissue, and muscle belly. Excisional debridement was performed. That wound itself measured 4 cm x 7 cm full thickness. This was irrigated with copious amounts of sterile bacitracin solution and dressed with a saline wet-to-dry dressing. Attention was then directed to the dorsum of the foot, where once again a very large and very deep wound involving the bones of the tarsus of the foot was noted. This was debrided full thickness through skin, subcutaneous tissue, and bone, that 3 cm wound was circumscribed utilizing a 15 blade, excisional in nature. The bone curetted. Posterior heel wound was then evaluated and that wound was approximately 5 cm in circumference, full thickness through skin and subcutaneous tissue, and it was also debrided full thickness through skin and subcutaneous tissue. Excisional nature that one had a large dry dark eschar. The heel does not appear to be infected with regard to the bone. So, the measurements on those debrided and packed wounds were posterior heel 5 cm in circumference x 2 cm deep, dorsal midfoot wound 3 cm in circumference x 2 cm deep, and the anterior leg and ankle wound was 4 cm x 7 cm x 2 cm deep. All wounds were packed open. Attention was then directed to the distal forefoot area for transmetatarsal amputation and flap closure. A distal flap was fashioned from the plantar aspect of the foot and rotated distalward while a transverse incision was placed across the dorsum of the foot at the proximal shaft of the metatarsals. Oscillating saw was used to transect all the way through dorsal to plantar through the bones of the proximal metatarsals. This having been accomplished, these areas were sectioned out with regard to the tendons, also all deep bleeders were electrocauterized and tied off as needed. The patient did have adequate bleeding prior to elevation of the tourniquet, which was now released and all bleeders were electrocauterized. The distal bone ends were cleaned and pulse lavage system utilizing bacitracin was then used to further irrigate the wound. The previous areas of wound packing were also irrigated with the Simpulse system. This having been accomplished, all wounds were once again packed open. A [place] drain was installed in the distal forefoot flap closure. A skin staple was used to intermittently fasten the flap closure in place and the deep tissues were noted to be viable in nature. The distal flap had easy return of capillary refill when compressed. After significant dressings with ABD pads, 4x4s, Kerlix, and Tony, the patient left the operating room with vital signs stable in apparent satisfactory condition, having tolerated both anesthetic and procedure very well. Tourniquet was up only for the length of time of bone cuts and was released prior to closure. All having been accomplished and deep wound cultures were taken, the patient was transported back to PACU and will return back to the floor for further IV antibiotics and wound care. JENSEN Canela/CASEY /[id number]
[2020-02-24] MEDS: LINEZOLID 600 MG/D5W 300ML 300 ML IV SCH ×2 (04:00→16:12)
[2020-02-24] MEDS: METRONIDAZOLE 500MG/NS 100ML 100 ML IV SCH ×3 (06:00→21:53)
[2020-02-24] MEDS: UMECLIDINIUM BROMIDE INH SCH (07:14)
[2020-02-24] MEDS: INSULIN LISPRO 100 UNIT/1 ML 3ML VIAL SQ SCH ×4 (07:30→21:00)
[2020-02-24] MEDS ORDERED: SODIUM CHLORIDE 0.9% 1000ML 2,000 ML ONE (08:30)
[2020-02-24 09:36] LABS: BASOPHILS # (AUTO) 0.1 (0.0-0.1); BASOPHILS % 0.6 % (0.0-1.0); EOSINOPHILS # (AUTO) 0.1 (0.0-0.4); EOSINOPHILS % 1.3 % (0.0-6.0); HEMOGLOBIN 9.4 g/dL (14.0-18.0); LYMPHOCYTES # (AUTO) 0.8 (1.0-3.2); LYMPHOCYTES % 8.1 % (18.0-39.1); MEAN CORPUSCULAR HEMOGLOBIN 27.7 pg (28-32); MEAN CORPUSCULAR HGB CONC 30.3 g/dL (31-35); MEAN CORPUSCULAR VOLUME 91.4 fL (81-99); MONOCYTES # (AUTO) 0.7 (0.2-0.8); MONOCYTES % 6.3 % (4.4-11.3); NEUTROPHILS # (AUTO) 8.6 (2.1-6.9); NEUTROPHILS % 82.2 % (38.7-80.0); PLATELET COUNT 210 x10e3/uL (140-360); RED BLOOD COUNT 3.39 x10e6/uL (4.3-5.7); RED CELL DISTRIBUTION WIDTH 16.2 % (11.7-14.4)
[2020-02-24 09:51] LABS: ANION GAP 17.4 mmol/L (8-16); CALCIUM 8.9 mg/dL (8.4-10.2); CREATININE, SERUM 3.78 mg/dL (0.72-1.25); POTASSIUM 4.4 mmol/L (3.5-5.1)
[2020-02-24] MEDS: SEVELAMER CARBONATE 800 MG TAB PO SCH ×3 (10:11→18:08)
[2020-02-24] MEDS: BALSAM PERU/CASTOR OIL 60 GM OINT...G. TP SCH (10:12)
[2020-02-24] MEDS: CEFEPIME 1GM/NS 0.9% 50 ML 50 ML IV SCH (10:12)
[2020-02-24] MEDS: APIXAB 2.5 MG TABLET PO SCH ×2 (10:12→21:21)
[2020-02-24] MEDS: POVIDONE IODINE 10% 120 ML BTL EXT SCH (10:12)
[2020-02-24] MEDS: AMIODARONE HCL 200 MG TAB PO SCH (10:12)
[2020-02-24] MEDS: AMLODIPINE BESYLATE 10 MG TAB PO SCH (10:12)
[2020-02-24] MEDS: BUDESONIDE/FORMOTEROL 160/4.5MCG INHALER INH PRN ×2 (10:14→20:00)
[2020-02-24] MEDS: MIDODRINE HCL 5 MG TABLET PO SCH ×3 (10:55→18:08)
[2020-02-24] MEDS ORDERED: ALBUMIN 25% 12.5GM 0.25 GM/ML BTL IV PRN (11:00)
[2020-02-24] MEDS ORDERED: SODIUM CHLORIDE 0.9% 1000ML 2,000 ML IV PRN (11:00)
[2020-02-24] MEDS ORDERED: SODIUM CHLORIDE 0.9% 250ML 500 ML IV PRN (11:00)
--- NOTE | 2020-02-24 12:28 | Progress Note ---
DATE: Infectious Disease SUBJECTIVE: The patient is seen and evaluated. Dialysis in his room. Patient without any acute distress. REVIEW OF SYSTEMS: No nausea, vomiting, fever, chills, chest pain, shortness of breath, cough, or rash. Pain is controlled. OBJECTIVE: VITAL SIGNS: Temperature 97.6, pulse 94, respirations 20, and blood pressure 121/59. GENERAL: Alert and oriented, no acute distress. ABDOMEN: Soft, obese, nontender. HEENT: Moist. No pallor. No JVD. EXTREMITIES: Right foot dressed with surgical dressing. MEDICATIONS/ANTIBIOTICS: The patient is on cefepime, Flagyl and Zyvox. LABORATORY STUDIES: White count of 10.4, hemoglobin 9.4, and platelet 210. Sodium 136, potassium 4.4, creatinine 3.78. SEROLOGY: No new serology studies available. MICROBIOLOGY: Wound culture from 02/23/2020, no organisms seen on Gram stain with culture pending. RADIOLOGY STUDIES: Chest x-ray from 02/23/2020 showed cardiomegaly with mild pulmonary interstitial edema and small bilateral pleural effusion, also bibasilar patchy opacities, most likely subsegmental atelectasis. ASSESSMENT AND PLAN: 1. Infected right foot with multiple wounds and ischemic process/osteomyelitis of the right foot. 2. Septic joint. 3. Abscess. 4. End-stage renal disease. 5. Diabetes. 6. Atrial fibrillation. 7. Severe debility. 8. Anemia of chronic disease. 9. Renal insufficiency-on dialysis. 10. Status post transmetatarsal amputation of right foot with debridement of multiple wounds on the right lower extremity/foot. Follow up with the cultures. Continue to monitor the healing process currently with surgical dressing. Continue with dialysis. Continue with pain management. Discussed with Dr. Jimenez. Please refer to chart for more information. Dictated by Stephen Siddiqui PA-C (Al) Oscar Jimenez MD /MODL /[id number]
--- NOTE | 2020-02-24 14:39 | Progress Note ---
DATE: 02/24/2020 Cardiology Progress Note SUBJECTIVE: The patient denies chest pain. He does endorse shortness of breath. He was seen on hemodialysis. OBJECTIVE: VITAL SIGNS: Temperature 97.6 degrees, pulse 94, respiratory rate 20, blood pressure 121/59, oxygen saturation 98% on room air. GENERAL: An elderly man, in no acute distress. Awake and alert. LUNGS: Clear to auscultation bilaterally. No wheezes or crackles. CARDIOVASCULAR: Normal rate. Irregularly irregular. No murmur. Normal S1, S2. ABDOMEN: Soft, nontender. EXTREMITIES: Right foot with dressing intact. No edema. CARDIAC MEDICATIONS: 1. Apixaban 2.5 mg p.o. q.12 hours. 2. Amlodipine 10 mg p.o. daily. 3. Amiodarone 200 mg p.o. Thursday, Thursday, Thursday. 4. Metoprolol tartrate 50 mg p.o. Thursday, Thursday, , Thursday. LABORATORY DATA: WBC 10.4, hemoglobin 9.4, hematocrit 31, platelets 210. Sodium 136, potassium 4.4, chloride 99, CO2 of 24. BUN 13, creatinine 3.78. BNP 839. TELEMETRY: Personally reviewed and interpreted revealing atrial fibrillation. IMPRESSION: 1. Right foot with multiple necrotic wounds and osteomyelitis. 2. Peripheral arterial disease. 3. Hypertension. 4. Hyperlipidemia. 5. Atrial fibrillation. 6. End-stage renal disease, on hemodialysis. RECOMMENDATIONS: No intervention is indicated from a vascular standpoint based on his arterial Doppler. Continue current cardiac medications. Monitor the patient on telemetry. Antibiotics per Infectious Disease. Wound care per Podiatry. Monitor wound healing. He is high risk for BKA. BNP and chest x-ray, both suggest volume overload. This was discussed with Nephrology with recommendation for further volume removal with ultrafiltration. Monitor volume status closely. Thank you for this consult. We will continue to follow. Qiana Broderick MD ABS/MODL /[id number]
--- NOTE | 2020-02-24 16:07 | NUR ---
Nutrition Intervention Note RD Recommendation(s) for Physician: -Recommend to continue renal diet -Recommend Donato BID to promote wound healing -Recommend Vitamin C and zinc to promote wound healing -Nepro nutrition supplement daily for added nutrition Plan of Care: RD following, monitoring for tolerance and adequacy Nutrition reason for involvement: follow up RD Assessment 02/23: Follow up. Chart reviewed. Visited pt while he was on dialysis. Pt stated he has been eating about 50% of his meals. It is recorded that pt has consumed 75-100% of meals from 02/17-02/21. Recommend Nepro daily for added nutrition and Donato BID to promote wound healing. Will continue to monitor. (02/18/20) Pt is a 69 year old male admitted with cellulitis, ESRD on dialysis, gangrene, and osteomyelitis. Pt stated he has been eating about 50% of his meals. It is recorded that pt consumed 75% of breakfast this morning. No weight loss reported and pt mentioned he usually weighs 180-185 lbs. Pt currently has a weight of 191 lbs in chart. No N/V/D/C or chewing/swallowing issues. Will continue to monitor Principal Problems/Diagnoses: cellulitis, ESRD on dialysis, gangrene, and osteomyelitis PMH: diabetes mellitus, coronary artery disease, hyperlipidemia, hypertension, atrial fibrillation, chronic orthostasis, COPD GI: last recorded BM 02/22 Skin: redness to gluteal sacral area, right lower leg diabetic ulcer, right foot unstageable ulcers, right heel unstageable ulcer, right foot diabetic ulcer, right 3rd toe unstageable ulcer, diabetic ulcer left toe, left knee unstageable wound per wound care note on 02/16 Labs: (02/23) Cr 3.78, BNP 839 (02/17) Na 135, Cr 3.62 Meds: antibiotics, amiodarone, Renvela, zofran, metoprolol, Ht: 71 inches Wt: 181 lbs (02/22) 191 lbs (02/16) BMI: 25.2 kg/m2 IBW: 172 lbs Malnutrition Evaluation (02/18/20) The patient does not meet criteria for a specified degree of malnutrition at this time. Will re-evaluate at follow-up as appropriate. Nutrition Prescription (Diet Order): renal diet Estimated Nutritional Needs: 6235-6502 calories/day (30-35 kcal/kg CBW) 99-123 g protein/day (1.2-1.5 g pro/kg CBW) Diet Adequacy: Not meeting calorie needs, not meeting protein needs per pt report Tolerance: Tolerating PO Diet Education Needs Assessment: Pt declined diet education materials at time of visit Nutrition Care Level: low Nutrition Diagnosis: Increased nutrient needs related to increased demand for protein and kcal as evidenced by multiple unstageable ulcers. Goal: Patient will meet 75-100% of estimated needs by follow up Progress: progressing Interventions: -mineral modified diet, Commercial beverage, Multivitamin/mineral supplement therapy Monitoring/Evaluation: -Total energy intake, Total protein intake, Modified diet, Liquid supplement, Weight change Signed: Lelia Thurston RD, LD
--- NOTE | 2020-02-24 16:52 | NUR ---
WOUND CARE RE CONSULTATION FOR 69 YO MALE R/T APPLICATION OF NEGATIVE PRESSURE THERAPY. HX OF PRESENT ILLNESS OF DIABETES, CELLULITIS, ESRD ON DIALYSIS, GANGRENE, OSTEOMYELITIS. PTS PREVIOULY WOUND CARE CONSULT WAS AT THE ER HOLD LAST THURSDAY. CURRENT LABS: WBC- 10.40 HGB- 9.4 GLUCOSE-118 RIGHT FOOT CULTURE: ANAEROBIC PENDING. BLOOD CULTURE: NO GROWTH FOOT X- IMPRESSION REPORTS MULTIFOCAL OSTEOMYELITIS OF THE FOREFOOT ABOUT THE FIRST, SECOND AND FIFT MTP JOINTS AND ABOVE. PT IS ON CEFEPINE AND LENEZOLID. SURGICAL PROCEDURE: TRANS MET AMPUTATION RT FOOT W/FLAP CLOSERE OF WOUND WITH DEBRIDEMENT FULL THICKNESS RIGHT ANKLE. 02/23/2020. THIS NURSE RECEIVED A CONSULT FOR WOUND CARE FROM DR. SALAZAR TO APPLY NEGATIVE PRESSURE THERAPY. NOTIFIDED VALDO GIBBS FOR ROOM 296 TO GATHER ALL THE SUPPLIES NEEDED TO APPLY NEGATIVE PRESSURE THERAPY. RECEIVED A PHONE CALL BACK TO WOUND CARE CENTER TO INFORM THAT WOUND VAC SUPPLIES WERE GOING TO BE DELAYED FOR 3-5 HOURS. NOTIFY ; RECEIVED ORDERS TO LEAVE SURGICAL DRESSING IN PLACE AND INTACT AND TO APPLY NEGATIVE PRESSURE THERAPY UNTIL THURSDAY. REPORT GIVEN TO SAI LYLE FOR ROOM 296 ; R FOOT SURGICAL DRESSING TO REMAIN INTACT AND TO START NEGATIVE PRESSURE THERAPY MONDAY 02/26. Addendum: 02/24/20 at 1655 by Lily Maravilla RN Amended: Links added.
[2020-02-24] MEDS ORDERED: FENTANYL CITRATE/PF 100MCG/2 ML INJ ONE (19:52)
--- NOTE | 2020-02-24 20:34 | Progress Note ---
DATE: The patient is seen today one day status post TMA and multiple wound debridements, right foot. He has multiple open wounds full thickness, status post transmetatarsal amputation with flap closure and [place] drain. He is doing well. No pain. No nausea, vomiting, fevers, chills. He actually states he feels better than he did preop. At this point, I am recommending a wound care consultation with application of wound VAC, right lower extremity. I would like to see posterior heel wound, dorsal foot wound, and anterior leg wound all dressed and bridged for the VAC. The distal transmetatarsal flap can be dressed with a Bactroban ointment and dry gauze. He is still nonweightbearing and will need to stay in-house at least through the weekend when discharge plans are being made for next week. He will need IV antibiotics as per Dr. Jimenez's orders and a wound VAC and associated dressing changes following up with me on an outpatient basis on a weekly basis. detention facility or home health administration of wound care and IV antibiotics should be considered. JENSEN Canela/CASEY /[id number]
--- NOTE | 2020-02-24 21:25 | Consultation ---
DATE OF CONSULTATION: REASON FOR CONSULTATION: 1. Right TMA. 2. Left foot wound. 3. End-stage renal disease, on hemodialysis. 4. Diabetes. 5. History of atrial fibrillation. HISTORY: The patient is a 69-year-old male who has a long history of , came into the hospital, evaluated, and was recommended originally to have possible BKA, but started with TMA to the right foot. He underwent surgery toes of his left foot. I am being asked to evaluate for rehab needs. PAST MEDICAL HISTORY: Diabetes, coronary artery disease, hyperlipidemia, hypertension, atrial fibrillation, osteomyelitis, COPD. SURGERIES: Appendectomy and multiple ankle surgeries. HABITS: Nonsmoker and nondrinker. He quit smoking years ago. SOCIAL HISTORY: He lives with his sister in a one-story home. Ambulates with a cane . FAMILY HISTORY: Denied. REVIEW OF SYSTEMS: Negative except for the above findings. PHYSICAL EXAMINATION: GENERAL: The patient is awake, alert, . NECK: No JVD. HEART: Regular. LUNGS: Fair air entry. ABDOMEN: Nontender, nondistended. EXTREMITIES: 4-/5 strength in the upper extremity . Dorsiflexion and plantar flexion are limited on the right because he has this large dressing on the foot. On the left foot he has multiple dressings . He tells me he has not been able to get up yet . IMPRESSION: 1. Right TMA. 2. Left foot wound. 3. End-stage renal disease, on hemodialysis. 4. Diabetes. 5. Chronic obstructive pulmonary disease. PLAN: The patient mobilize, transfer, and perform his ADLs. Right now, he is dealing with recommend to see how he does. He could benefit from PT and OT. He definitely has medical issues including his foot wound. I do not think he can get single-level care close medical monitoring and management of his foot. Andrew Boggs DO RPL/LEONARDAL /[id number]
[2020-02-25] VITALS (7 sets, daily range): BP systolic 118–133; BP diastolic 43–97
[2020-02-25] MEDS: LINEZOLID 600 MG/D5W 300ML 300 ML IV SCH (04:50)
[2020-02-25] MEDS: UMECLIDINIUM BROMIDE INH SCH (06:00)
[2020-02-25] MEDS: METRONIDAZOLE 500MG/NS 100ML 100 ML IV SCH ×3 (06:15→21:51)
--- NOTE | 2020-02-25 06:30 | NUR ---
patient endorsed to next shift for continuity of care.
--- NOTE | 2020-02-25 07:00 | NUR ---
Received patient lying in bed with eyes open. Respiration even and unlabored without SOB. Call light in reach.
[2020-02-25] MEDS: BUDESONIDE/FORMOTEROL 160/4.5MCG INHALER INH PRN ×2 (07:05→19:20)
[2020-02-25] MEDS: INSULIN LISPRO 100 UNIT/1 ML 3ML VIAL SQ SCH ×4 (08:21→21:00)
[2020-02-25] MEDS: MIDODRINE HCL 5 MG TABLET PO SCH ×3 (08:21→16:50)
[2020-02-25] MEDS: AMLODIPINE BESYLATE 10 MG TAB PO SCH (08:22)
[2020-02-25] MEDS: SEVELAMER CARBONATE 800 MG TAB PO SCH ×3 (08:22→16:50)
[2020-02-25] MEDS: CEFEPIME 1GM/NS 0.9% 50 ML 50 ML IV SCH (08:22)
[2020-02-25] MEDS: BALSAM PERU/CASTOR OIL 60 GM OINT...G. TP SCH (08:22)
[2020-02-25] MEDS: APIXAB 2.5 MG TABLET PO SCH (08:23)
[2020-02-25] MEDS: POVIDONE IODINE 10% 120 ML BTL EXT SCH (12:16)
[2020-02-25] MEDS: METOPROLOL TARTRATE 50 MG TAB PO SCH (12:20)
--- NOTE | 2020-02-25 18:33 | Progress Note ---
DATE: 02/25/2020 Cardiology Progress Note SUBJECTIVE: The patient denies chest pain. He reports his breathing is better after dialysis. OBJECTIVE: VITAL SIGNS: Temperature 97.8 degrees, pulse 84, respiratory rate 20, blood pressure 118/52, and oxygen saturation 98% on room air. GENERAL: An elderly man, in no acute distress. Awake and alert. LUNGS: Clear to auscultation bilaterally. No wheezes or crackles. CARDIOVASCULAR: Normal rate. Irregularly irregular. No murmur. Normal S1, S2. ABDOMEN: Soft, nontender. EXTREMITIES: Right foot dressing intact. No edema. CARDIAC MEDICATIONS: 1. Metoprolol tartrate 50 mg p.o. Thursday, Thursday, , and Thursday. 2. Amlodipine 10 mg p.o. daily. 3. Amiodarone 200 mg p.o. Thursday, Thursday, and Thursday. LABORATORY DATA: None today. TELEMETRY: Personally reviewed and interpreted revealing atrial fibrillation. IMPRESSION: 1. Right foot with multiple necrotic wounds and osteomyelitis. 2. Peripheral arterial disease. 3. Hypertension. 4. Hyperlipidemia. 5. Atrial fibrillation. 6. End-stage renal disease, on hemodialysis. RECOMMENDATIONS: No intervention is indicated from a vascular standpoint based on his arterial Doppler. Continue current cardiac medications. Monitor the patient on telemetry. Antibiotics per Infectious Disease. Wound care per Podiatry. He is high risk for BKA. Volume management per Nephrology given hemodialysis. Recommend further ultrafiltration. Thank you for this consult. We will continue to follow. Qiana Broderick MD ABS/MODL /[id number]
--- NOTE | 2020-02-25 19:10 | NUR ---
Report given to scene shifter. Respiration even and unlabored without SOB. Call light in reach.
[2020-02-26] VITALS (9 sets, daily range): BP systolic 86–130; BP diastolic 53–79
[2020-02-26] MEDS: METRONIDAZOLE 500MG/NS 100ML 100 ML IV SCH ×3 (05:01→22:00)
[2020-02-26] MEDS: UMECLIDINIUM BROMIDE INH SCH (06:00)
--- NOTE | 2020-02-26 06:26 | Progress Note ---
DATE: SUBJECTIVE: The patient did well overnight. No new complaints. He slept well. OBJECTIVE: VITAL SIGNS: Temperature 97.4, pulse 68, blood pressure 130/53, saturations 93% on room air. GENERAL: No apparent distress, lying in bed. CARDIOVASCULAR: Regular rate and rhythm. LUNGS: Clear to auscultation bilaterally. ABDOMEN: Good bowel sounds. Soft, nontender. EXTREMITIES: No clubbing or cyanosis. Right foot is bandaged. NEUROLOGIC: Moves all extremities x4. ASSESSMENT/PLAN: 1. Right foot osteomyelitis, status post transmetatarsal amputation. Continue with postoperative care and IV antibiotics. 2. Weakness. We will continue with rehab evaluation with Dr. Boggs, hopefully be transferred to the rehab center. 3. Hypertension. Continue with his medications. 4. End-stage renal disease. Continue dialysis per Renal. 5. Anemia. Continue to monitor p.r.n. 6. Diabetes. Continue current care and monitoring of sugars. Please see hospital chart for full details. MD ROSHAN Muñoz/MODL /[id number]
--- NOTE | 2020-02-26 07:08 | NUR ---
Received patient lying in bed with eyes open. Respiration even and unlabored without SOB. Call light in reach.
--- NOTE | 2020-02-26 07:12 | NUR ---
Patient endorsed to next shift for continuity of care.
[2020-02-26] MEDS: BUDESONIDE/FORMOTEROL 160/4.5MCG INHALER INH PRN ×2 (07:23→19:35)
[2020-02-26] MEDS: INSULIN LISPRO 100 UNIT/1 ML 3ML VIAL SQ SCH ×4 (07:30→21:00)
[2020-02-26] MEDS: SEVELAMER CARBONATE 800 MG TAB PO SCH ×3 (08:38→16:10)
[2020-02-26] MEDS: POVIDONE IODINE 10% 120 ML BTL EXT SCH (08:38)
[2020-02-26] MEDS: CEFEPIME 1GM/NS 0.9% 50 ML 50 ML IV SCH (08:38)
[2020-02-26] MEDS: MIDODRINE HCL 5 MG TABLET PO SCH ×3 (08:38→16:04)
[2020-02-26] MEDS: AMLODIPINE BESYLATE 10 MG TAB PO SCH (08:39)
[2020-02-26] MEDS: BALSAM PERU/CASTOR OIL 60 GM OINT...G. TP SCH (08:39)
[2020-02-26] MEDS: METOPROLOL TARTRATE 50 MG TAB PO SCH (12:25)
--- NOTE | 2020-02-26 19:08 | NUR ---
Report given to shift supervisor film processing. Respiration even and unlabored without SOB. Call light in reach.
--- NOTE | 2020-02-26 20:27 | Progress Note ---
DATE: 02/26/2020 Cardiology Progress Note SUBJECTIVE: The patient denies chest pain or shortness of breath. OBJECTIVE: VITAL SIGNS: Temperature 98 degrees, pulse 71, respiratory rate 19, blood pressure 120/64, and oxygen saturation 95% on room air. GENERAL: Awake, alert elderly man, in no acute distress. LUNGS: Clear to auscultation bilaterally. No wheezes or crackles. CARDIOVASCULAR: Normal rate. Irregularly irregular. No murmur. Normal S1 and S2. ABDOMEN: Soft and nontender. EXTREMITIES: Right foot dressing intact. No edema. CARDAIC MEDICATIONS: Metoprolol succinate 50 mg p.o. Thursday, Thursday, , Thursday; amlodipine 10 mg p.o. daily, amiodarone 200 mg Thursday, Thursday, Thursday. LABORATORY DATA: None today. TELEMETRY: Personally reviewed and interpreted, revealing atrial fibrillation. IMPRESSION: 1. Right foot with multiple necrotic wounds and osteomyelitis. 2. Peripheral arterial disease. 3. Hypertension. 4. Hyperlipidemia. 5. End-stage renal disease, on hemodialysis. RECOMMENDATIONS: No intervention is indicated from a vascular standpoint based on his arterial Doppler. Continue current cardiac medications. Monitor the patient on telemetry. Antibiotics per Infectious Disease. Wound care per Podiatry. He is high risk for BKA. Volume management per Nephrology given hemodialysis. Recommend further ultrafiltration. Thank you for this consult. We will continue to follow. Qiana Broderick MD ABS/MODL /[id number]
[2020-02-27] VITALS (7 sets, daily range): BP systolic 111–125; BP diastolic 49–67
[2020-02-27] MEDS: METRONIDAZOLE 500MG/NS 100ML 100 ML IV SCH ×3 (05:36→22:07)
[2020-02-27] MEDS: UMECLIDINIUM BROMIDE INH SCH (06:00)
--- NOTE | 2020-02-27 06:42 | NUR ---
Patient condition throughout thee shift was stable, patient endorsed to next shift for continuity of care.
[2020-02-27 06:47] LABS: BASOPHILS # (AUTO) 0.1 (0.0-0.1); BASOPHILS % 1.2 % (0.0-1.0); EOSINOPHILS # (AUTO) 0.4 (0.0-0.4); EOSINOPHILS % 3.3 % (0.0-6.0); HEMATOCRIT 30.3 % (38.2-49.6); HEMOGLOBIN 9.2 g/dL (14.0-18.0); LYMPHOCYTES # (AUTO) 1.3 (1.0-3.2); LYMPHOCYTES % 10.8 % (18.0-39.1); MEAN CORPUSCULAR HEMOGLOBIN 28.4 pg (28-32); MEAN CORPUSCULAR HGB CONC 30.4 g/dL (31-35); MEAN CORPUSCULAR VOLUME 93.5 fL (81-99); MONOCYTES % 8.5 % (4.4-11.3); NEUTROPHILS # (AUTO) 8.7 (2.1-6.9); NEUTROPHILS % 75.2 % (38.7-80.0); PLATELET COUNT 198 x10e3/uL (140-360); RED BLOOD COUNT 3.24 x10e6/uL (4.3-5.7); RED CELL DISTRIBUTION WIDTH 16.5 % (11.7-14.4)
[2020-02-27 06:51] LABS: ALBUMIN 2.7 g/dL (3.5-5.0); ALBUMIN/GLOBULIN RATIO 0.7 (0.8-2.0); ANION GAP 18.5 mmol/L (8-16); CALCIUM 9.7 mg/dL (8.4-10.2); MAGNESIUM 2.3 MG/DL (1.3-2.1); POTASSIUM 4.5 mmol/L (3.5-5.1)
--- NOTE | 2020-02-27 07:18 | Progress Note ---
DATE: SUBJECTIVE: The patient did well overnight, no new complaints, states his pain is well controlled. OBJECTIVE: VITAL SIGNS: Afebrile, stable. GENERAL: No apparent distress. Cardiovascular: Regular rate and rhythm. LUNGS: Clear to auscultation bilaterally. ABDOMEN: Good bowel sounds. Soft, nontender. EXTREMITIES: No clubbing or cyanosis. Right foot TMA appears to be healing well. NEUROLOGIC: Nonfocal. ASSESSMENT/PLAN: 1. Osteomyelitis. Continue with IV antibiotics per Dr. Jimenez. 2. Status post transmetatarsal amputation of the right foot. Continue with postoperative wound care. 3. Weakness. Continue with current care. The patient stated he is willing to do inpatient rehab if Dr. Boggs can get approval. 4. Diabetes. Continue current care monitoring. 5. Hypertension. Continue with his medications and monitoring. 6. End-stage renal disease. Continue with dialysis. Please see hospital chart for full details. MD ROSHAN Muñoz/CASEY /[id number]
[2020-02-27] MEDS: INSULIN LISPRO 100 UNIT/1 ML 3ML VIAL SQ SCH ×4 (07:48→21:00)
[2020-02-27] MEDS: BUDESONIDE/FORMOTEROL 160/4.5MCG INHALER INH PRN ×2 (07:49→19:48)
--- NOTE | 2020-02-27 08:14 | Progress Note ---
DATE: SUBJECTIVE: Mr. Guzman is lying in bed comfortably. There is no new complaint. PHYSICAL EXAMINATION: GENERAL: He is currently alert, oriented, does not seem in acute distress. VITAL SIGNS: Possible afebrile. HEENT: Not icteric. NECK: Supple. CHEST: Clear. HEART: No S1, S2. No S3, S4 or murmur. ABDOMEN: Soft. Bowel sounds present. No tenderness. EXTREMITIES: No edema. IMPRESSION: Right foot infection, severe peripheral vascular disease, debility, hypertension, end-stage hemodialysis. Continue with IV antibiotic. Continue with local care. The patient remains at risk for amputation, status post transmetatarsal amputation of the right foot, debridement of full-thickness through the skin, subcutaneous tissue and bone. Continue with the local care, status post flap closure of the right foot. Continue antibiotic for 2 weeks. Going for rehab. We will reassess. MD IVETTE Lino/MODRupinder /[id number]
[2020-02-27] MEDS: CEFEPIME 1GM/NS 0.9% 50 ML 50 ML IV SCH (08:30)
[2020-02-27] MEDS: AMIODARONE HCL 200 MG TAB PO SCH (08:30)
[2020-02-27] MEDS: SEVELAMER CARBONATE 800 MG TAB PO SCH ×3 (08:30→16:55)
[2020-02-27] MEDS: MIDODRINE HCL 5 MG TABLET PO SCH ×3 (08:30→16:36)
[2020-02-27] MEDS: POVIDONE IODINE 10% 120 ML BTL EXT SCH (09:00)
[2020-02-27] MEDS: AMLODIPINE BESYLATE 10 MG TAB PO SCH (09:00)
--- NOTE | 2020-02-27 12:35 | Progress Note ---
DATE: SUBJECTIVE: The patient is seen and evaluated. Available labs and notes reviewed. REVIEW OF SYSTEMS: No nausea, vomiting, fever, chills, chest pain, shortness of breath, headache, rash, dysuria, polyuria, or sweats. PHYSICAL EXAMINATION: VITAL SIGNS: Temperature 97.9, pulse 81, respiration 18, and blood pressure 116/67. GENERAL: Alert and oriented, no acute distress. CV: S1 and S2. CHEST: Equal expansion. Clear to auscultation. No acute distress. ABDOMEN: Soft and nontender. No distention. HEENT: Moist. No pallor. No JVD. EXTREMITIES: Right TMA is now on wound VAC and dressed. LABORATORY STUDIES: White count 11.55, hemoglobin 9.2, and platelet 198. Sodium 135, potassium 4.5, and creatinine 6. Serology; no new serology available. MICROBIOLOGY: Wound culture showed no growth after 3 days. Blood cultures negative on 02/17/2020. RADIOLOGY STUDIES: No new radiology studies available. ASSESSMENT AND PLAN: 1. Infected right foot. 2. Septic joint. 3. Abscess. 4. Atrial fibrillation. 5. End-stage renal disease. 6. Anemia. 7. Debility. 8. Diabetes. 9. Medication list reviewed. The patient is currently on cefepime and Flagyl. Available labs reviewed, the patient is off Zyvox. Discussed with Dr. Jimenez in details. Further management of this patient is based on daily findings on laboratory and physical examination. Please refer to chart for more information. Dictated by Stephen Siddiqui PA-C (Al) Oscar Jimenez MD /MODL /[id number]
--- NOTE | 2020-02-27 12:54 | NUR ---
Patient up in bed, Wound care came and applied wound vac on rt foot, Patient is on Dialysis this time
--- NOTE | 2020-02-27 13:36 | NUR ---
WOUND CARE CONSULT FOR 69 YO MALE POST SURGICAL DEBRIDEMENT PER DR SALAZAR RIGHT FOOT ASSESSMENT COMPLETE PATIENT PRESENTS WITH POST SURGICAL DRESSING REMOVED FULL THICKNESS WOUND NOTED TO UPPER ASPECT DORSAL RIGHT FOOT 5CM X2CM X0.3CM WITH EXPOSED TENDON FULL THICKNESS WOUND NOTED TO MID ASPECT DORSAL RIGHT FOOT 3CM X2CM X0.3CM FULL THICKNESS WOUND NOTED TO LOWER ASPECT DORSAL RIGHT FOOT 1.5CM X 1.5CM CM X 0.3CM RIGHT FOOT TRANSVERSE STAPLE LINE 11.5CM RIGHT HEEL FULL THICKNESS WOUND 5CM X5CM X0.4CM RECOMMENDATIONS: NURSING TO CONTINUE TO MAINTAIN MODERATE PUP STATUS AND INTERVENTIONS AND VISCO MATTRESS NURSING TO CONTINUE TO ASSIST PATIENT OUT OF BED FOR MEALS AND MUCH TOLERATED NURSING TO CONTINUE TO ASSIST PATIENT NEEDED WITH MEALS AND NUTRITIONAL SUPPLEMENTS TO ENSURE PROPER REQUIREMENTS FOR HEALING NURSING TO CONTINUE TO OFFLOAD FEET AND HEELS NEEDED WITH PILLOW SUSPENSION WHEN IN BED NURSING TO CLEAN RIGHT FOOT WOUND AREAS WITH NORMAL SALINE AND APPLY NEGATIVE PRESSURE THERAPY MON,WED, FRI ATTACH WOUND AREAS WITH BLACK FOAM PROTECT UNDERLYING SKIN WITH DRAPE SET AT CONTINUOUS PRESSURE AT 140MMHG Addendum: 02/27/20 at 1347 by Kedar Kinsey RN Amended: Links added.
[2020-02-27] MEDS: LINEZOLID 600 MG/D5W 300ML 300 ML IV SCH (17:39)
[2020-02-27] MEDS: BALSAM PERU/CASTOR OIL 60 GM OINT...G. TP SCH (17:39)
--- NOTE | 2020-02-27 20:17 | Progress Note ---
DATE: The patient is seen today approximately four days status post transmetatarsal amputation and multiple deep wound debridements. He states he has had no pain. He is doing well. Feeling better every day. The patient does indeed have a wound VAC on, which he states was applied today. The wounds were all covered and the VAC is functioning well. Tony was removed to evaluate, but reapplied as before without disturbing the wound VAC. The wound VAC will be changed on Thursday, Thursday, and Thursday. The patient is otherwise following a normal course of healing at this point with infected foot status post transmetatarsal amputation. The patient does indeed have end-stage renal disease, diabetes, PAD. He is under the care for his infection by Dr. Jimenez and at this point, continues to show signs of improvement. He is fine to transition to his next phase of care for continued IV antibiotic and wound VAC treatment. At that point, he can follow with me weekly on an outpatient basis in the office. JENSEN Canela/CASEY /[id number]
[2020-02-28] VITALS (7 sets, daily range): BP systolic 98–136; BP diastolic 51–80
[2020-02-28] MEDS: LINEZOLID 600 MG/D5W 300ML 300 ML IV SCH ×3 (00:27→23:43)
--- NOTE | 2020-02-28 05:58 | Progress Note ---
DATE: SUBJECTIVE: The patient did well overnight. No new complaints. OBJECTIVE: VITAL SIGNS: Temperature 98.6, pulse 76, blood pressure 136/51, saturations 94%. GENERAL: He is in no apparent distress, lying in bed. CARDIOVASCULAR: Regular rate and rhythm. LUNGS: Clear to auscultation bilaterally. ABDOMEN: Good bowel sounds. Soft, nontender. EXTREMITIES: No clubbing or cyanosis. NEUROLOGIC: Nonfocal. ASSESSMENT/PLAN: 1. Osteomyelitis of the foot, status post transmetatarsal amputation. Continue with postoperative care and antibiotics per Dr. Jimenez. 2. Weakness. Continue with current physical therapy and hopefully, the patient can be transferred to inpatient rehab with Dr. Boggs. 3. Anemia. Continue to monitor p.r.n. 4. End-stage renal disease. Continue with dialysis per Dr. Beard. 5. Hypertension. Continue current care and monitoring. 6. Diabetes. Continue current care and monitoring. Please see hospital chart for full details. MD ROSHAN Muñoz/MODL /[id number]
[2020-02-28] MEDS: UMECLIDINIUM BROMIDE INH SCH (06:00)
[2020-02-28] MEDS: METRONIDAZOLE 500MG/NS 100ML 100 ML IV SCH ×3 (06:36→21:42)
--- NOTE | 2020-02-28 07:02 | NUR ---
REPORT GIVEN TO [facility] AAOX3. NO SIGNS OF IV INFILTRATION. RESTING IN BED. BED LOCKED AND IN LOW POSITION. BED ALARM ACTIVATED. Addendum: 02/28/20 at 0706 by Luly Fuentes RN PLEASE INCLUDE CALL LIGHT WITHIN REACH
[2020-02-28] MEDS: INSULIN LISPRO 100 UNIT/1 ML 3ML VIAL SQ SCH ×4 (07:48→20:39)
[2020-02-28] MEDS: AMLODIPINE BESYLATE 10 MG TAB PO SCH (08:09)
[2020-02-28] MEDS: SEVELAMER CARBONATE 800 MG TAB PO SCH ×3 (08:09→17:02)
[2020-02-28] MEDS: MIDODRINE HCL 5 MG TABLET PO SCH ×3 (08:09→17:02)
[2020-02-28] MEDS: CEFEPIME 1GM/NS 0.9% 50 ML 50 ML IV SCH (08:09)
--- NOTE | 2020-02-28 09:02 | NUR ---
CALL RECEIVED FROM [facility]. STATES DR. RODRIGUEZ WAS SEEING THE PT. INFORMED THERE WAS NO ORDER FOR INPT REHAB. CM WILL F/U IN MDR.
--- NOTE | 2020-02-28 11:49 | Progress Note ---
DATE: SUBJECTIVE: The patient is seen and evaluated. Available labs and notes reviewed. Discussed with Dr. Jimenez. REVIEW OF SYSTEMS: No nausea, vomiting, fever, chills, chest pain, shortness of breath, headache, dysuria, or polyuria. PHYSICAL EXAMINATION: VITAL SIGNS: Temperature 97.4, pulse is 86, respiration 18, and blood pressure 112/80. GENERAL: Alert and oriented, in no acute distress. CV: S1 and S2. CHEST: Equal expansion. Clear to auscultation. No acute distress. ABDOMEN: Soft and nontender. No distention. HEENT: Moist. No pallor. No JVD. EXTREMITIES: Right foot wound VAC dressed. MEDICATIONS: Medication list reviewed and as far as Infectious Disease point of view, the patient is on Zyvox, cefepime, and Flagyl. LABORATORY STUDIES: No new CBC or BMP available. Last hemoglobin was 9.2 with white count of 11.55 and platelet count of 198. Last creatinine 6.0. The patient on dialysis. MICROBIOLOGY: Wound culture was negative 3 days. Blood culture negative. RADIOLOGY STUDIES: No new radiology studies available. ASSESSMENT AND PLAN: 1. The patient is status post right transmetatarsal amputation, seen by Podiatry yesterday. The patient is currently on wound VAC. Wound VAC was not taken off by the Podiatry. 2. Septic joint. 3. Abscess. 4. Atrial fibrillation. 5. End-stage renal disease. 6. Debility. 7. Diabetes. 8. Anemia. 9. The patient is status post transmetatarsal amputation of the right secondary to septic joint and abscess. Continue with cefepime, Flagyl, and Zyvox. Monitor platelets. The patient is on renal failure dialysis. Continue with wound care/wound VAC. Rehab in progress for evaluation and possibly transfer to rehab. Continue to monitor the patient clinically and follow up with the labs. Please refer to chart for more information. Dictated by Stephen Siddiqui PA-C (Al) Oscar Jimenez MD /MODL /[id number]
[2020-02-28] MEDS: METOPROLOL TARTRATE 50 MG TAB PO SCH (12:24)
[2020-02-28] MEDS: POVIDONE IODINE 10% 120 ML BTL EXT SCH (15:28)
[2020-02-28] MEDS: BALSAM PERU/CASTOR OIL 60 GM OINT...G. TP SCH (15:28)
[2020-02-28] MEDS: BUDESONIDE/FORMOTEROL 160/4.5MCG INHALER INH PRN (19:35)
--- NOTE | 2020-02-28 23:28 | NUR ---
DISCONTINUED IV TO R WRIST. CATHETER TIP INTACT. NO ADVERSE SIGNS. CDI DRESSING PLACED. NEW IV STARTED TO R AC. CDI DRESSING. BLOOD RETURN. SALINE FLUSH.
[2020-02-29] VITALS: BP 116/53
[2020-02-29 04:00] VITALS: BP 126/55
[2020-02-29] MEDS: METRONIDAZOLE 500MG/NS 100ML 100 ML IV SCH (05:53)
[2020-02-29] MEDS: UMECLIDINIUM BROMIDE INH SCH (05:54)
[2020-02-29 06:36] LABS: ALBUMIN 2.9 g/dL (3.5-5.0); ALBUMIN/GLOBULIN RATIO 0.7 (0.8-2.0); ANION GAP 18.9 mmol/L (8-16); CALCIUM 9.7 mg/dL (8.4-10.2); CREATININE, SERUM 5.48 mg/dL (0.72-1.25); POTASSIUM 4.9 mmol/L (3.5-5.1)
--- NOTE | 2020-02-29 06:49 | NUR ---
RECEIVED BEDSIDE SHIFT REPORT FROM OFF GOING NURSE. PATIENT IS RESTING IN BED, NO ACUTE DISTRESS NOTED. DENIES PAIN OR DISCOMFORT. CALL LIGHT WITHIN REACH. BED IN THE LOWEST POSITION.
[2020-02-29] MEDS: BUDESONIDE/FORMOTEROL 160/4.5MCG INHALER INH PRN (06:58)
--- NOTE | 2020-02-29 07:15 | NUR ---
REPORT GIVEN TO DAYSWIFT NURSE. AAOX3. RESTING IN BED. NO SIGNS OF IV INFILTRATION. BED LOCKED AND IN LOW POSITION. CALL LIGHT WITHIN REACH. BED ALARM ACTIVATED.
[2020-02-29] MEDS: INSULIN LISPRO 100 UNIT/1 ML 3ML VIAL SQ SCH ×3 (07:30→16:55)
[2020-02-29] MEDS: POVIDONE IODINE 10% 120 ML BTL EXT SCH (07:39)
[2020-02-29] MEDS: MIDODRINE HCL 5 MG TABLET PO SCH ×3 (07:39→15:13)
[2020-02-29] MEDS: BALSAM PERU/CASTOR OIL 60 GM OINT...G. TP SCH (07:40)
--- NOTE | 2020-02-29 07:53 | Progress Note ---
DATE: SUBJECTIVE: The patient did well overnight. No new complaints. OBJECTIVE: VITAL SIGNS: Temperature 97.9, pulse 79, blood pressure 125/67, sats 100%. GENERAL: He is in no apparent distress, lying in bed. CARDIOVASCULAR: Regular rate and rhythm. LUNGS: Clear to auscultation bilaterally. ABDOMEN: Good bowel sounds. Soft, nontender. EXTREMITIES: No clubbing or cyanosis. Right foot is bandaged. NEUROLOGIC: Nonfocal. ASSESSMENT/PLAN: 1. Status post transmetatarsal amputation. Continue with postoperative care. 2. Osteomyelitis of the foot. Continue with antibiotics per Dr. Jimenez. 3. Weakness. Continue with physical therapy and hopefully, the patient will qualify for inpatient rehab, which he needs for further rehabilitative care as well as learn how to adjust with transmetatarsal amputation. 4. Diabetes. Continue with current care monitoring. 5. Hypertension. Continue current care monitoring. 6. End-stage renal disease. Continue with dialysis per Renal. 7. Anemia. Continue to monitor. Since it is stable. Please see hospital chart for full details. MD ROSHAN Muñoz/MODL /[id number]
--- NOTE | 2020-02-29 08:00 | NUR ---
HD STARTED AT THIS TIME.
[2020-02-29] MEDS: SEVELAMER CARBONATE 800 MG TAB PO SCH ×3 (08:09→16:55)
[2020-02-29 08:23] VITALS: BP 136/64
[2020-02-29 08:27] VITALS: BP 136/64
[2020-02-29] MEDS: AMLODIPINE BESYLATE 10 MG TAB PO SCH (09:00)
--- NOTE | 2020-02-29 11:30 | NUR ---
HD FINISHED AT THIS TIME, 3L REMOVED. PATIENT TOLERATED IT WELL.
[2020-02-29 11:33] VITALS: BP 103/56
[2020-02-29] MEDS: LINEZOLID 600 MG/D5W 300ML 300 ML IV SCH (11:44)
[2020-02-29] MEDS: AMIODARONE HCL 200 MG TAB PO SCH (11:46)
--- NOTE | 2020-02-29 11:48 | Progress Note ---
DATE: SUBJECTIVE: The patient is seen and evaluated. Available labs and notes reviewed. Discussed with staff. REVIEW OF SYSTEMS: No nausea, vomiting, fever, chills, chest pain, shortness of breath, headache, rash, or cough. PHYSICAL EXAMINATION: VITAL SIGNS: Temperature is 98.1, pulse is 84, respirations 18, and blood pressure 136/64. GENERAL: Alert and oriented, very pleasant, no acute distress. CV: S1-S2. CHEST: Equal expansion. Clear to auscultation. No acute distress. ABDOMEN: Soft, nontender. No distention. HEENT: Moist. No pallor. No JVD. EXTREMITIES: The right foot surgical wound on local care. MEDICATIONS: Medication list reviewed. As far as Infectious Disease point of view, the patient is on Zyvox, cefepime, and Flagyl. LABORATORY STUDIES: No new CBC from today. However, BMP showed sodium 135, potassium 4.9, creatinine of 5.48. The patient is on dialysis. Serology; no new serology studies available. MICROBIOLOGY: No new microbiology studies available. However, right foot wound culture was negative after three days from 02/23/2020 with blood culture negative on 02/17/2020. ASSESSMENT AND PLAN: A pleasant 69-year-old gentleman with, 1. Infected right foot, status post TMA, on wound VAC. 2. Septic joint. 3. Abscess. 4. Atrial fibrillation. 5. End-stage renal disease. 6. Debility. 7. Diabetes. 8. Anemia. 9. Obesity. Continue with IV antibiotics for total of 2 weeks and then we can change to oral doxycycline and ciprofloxacin. The patient is being evaluated to go to inpatient rehab at [facility]. Discussed with the nurse. We will transfer with all antibiotics and we will taper after 14 days to oral antibiotics as planned. Please refer to chart for more information. Discussed with Dr. Jimenez in details. Dictated by Stephen Siddiqui PA-C (Al) Oscar Jimenez MD /MODL /[id number]
--- NOTE | 2020-02-29 12:42 | NUR ---
WOUND CARE CONSULT FOR NEGATIVE PRESSURE DRESSING CHANGE DRESSING IN PLACE WITH BLACK FOAM HOLDING 140MMHG NEGATIVE PRESSURE REPORTED BY PRIMARY NURSE PATIENT TO BE DISCHARGED TODAY TO REHAB NEGATIVE PRESSURE DRESSING TO BE REPLACED WITH WET TO DRY DRESSING PRIOR TO PATIENT LEAVING Addendum: 02/29/20 at 1247 by Kedar Kinsey RN Amended: Links added.
[2020-02-29] MEDS ORDERED: METRONIDAZOLE 500MG/NS 100ML 100 ML IV SCH (14:00)
--- NOTE | 2020-02-29 14:46 | NUR ---
REPORT CALLED TO SAI BLUNT @ [facility] AT THIS TIME.
[2020-02-29] MEDS ORDERED: CEFEPIME 1GM/NS 0.9% 50 ML 50 ML IV SCH (15:00)
--- NOTE | 2020-02-29 15:35 | NUR ---
DISCONTINUED WOUND VAC AT THIS TIME, APPLIED WET TO DRY DRESSING FOR TRANSFER. PATIENT TOLERATED IT WELL. WOUND VAC DISINFECTED AND GIVEN TO WATER AEROBICS INSTRUCTOR.
[2020-02-29 15:54] VITALS: BP 113/50
--- NOTE | 2020-02-29 17:48 | NUR ---
RECEIVED DC ORDER FOR PATIENT TO TRANSFER TO [facility]. PATIENT IS IN STABLE CONDITION. MOT WITH TRANSFER PAPERWORK GIVEN TO EMS PERSONNEL. ALL PERSONAL ITEMS ON HAND. IV LINE TO RIGHT ANTECUBITAL PATENT, SALINE FLUSHED. PATIENT TRANSPORTED VIA AMBULANCE.
--- NOTE | 2020-02-29 20:15 | Progress Note ---
DATE: 02/29/2020 SUBJECTIVE: Mr. Guzman is seen on rounds. He is doing relatively well, just ready to come to rehab, was scheduled to come over yesterday. Nonetheless, he is doing well. OBJECTIVE: VITAL SIGNS: Stable. He seems ready to go. LABORATORY DATA: Potassium is 4.9, BUN of 20, and creatinine of 5.4. ASSESSMENT AND PLAN: Clinically, he is making good progress. Await his transfer to inpatient rehab over at [facility]. Andrew Boggs DO RPL/MODL /[id number]
--- NOTE | 2020-03-01 09:08 | Discharge Summary ---
DISCHARGE DIAGNOSES: 1. Right foot osteomyelitis, status post transmetatarsal amputation. 2. Diabetes. 3. Hypertension. 4. End-stage renal disease. 5. Chronic anemia. 6. Peripheral arterial disease. HOSPITAL PROCEDURE: Right transmetatarsal amputation . HISTORY OF PRESENT ILLNESS AND HOSPITAL COURSE: The patient is a gentleman with severe peripheral arterial disease, end-stage renal disease, hypertension, and diabetes, who presented with chronic osteomyelitis of the right foot, where due to the nonhealing nature of it, he finally agreed to right TMA, that was performed by Podiatry without any complications. Postop, he did very well, but due to his weakness and prolonged need of IV antibiotics and new status with partial foot, he was then accepted to acute rehab under the care of Dr. Boggs. He was transferred there for further rehabilitative care and medical care. Please see hospital chart for full details. MD ROSHAN Muñoz/CASEY /[id number]
== END 2020-02-29 17:50 | DRG 239 ==
LOC: ER 11:34 → ERHOLD 14:28 → MED/SURG3 19:42
PROVIDERS: ADMIT Internal Medicine; ATTEND Internal Medicine
PROC: 5A1D70Z Performance of Urinary Filtration, Intermittent, Less than 6 Hours Per Day (ICD-10-PCS; principal; 2020-02-17)
PROC: 0Y6M0Z9 Detachment at Right Foot, Partial 1st Ray, Open Approach (ICD-10-PCS; 2020-02-23)
PROC: 0JXQ0ZB Transfer Right Foot Subcutaneous Tissue and Fascia with Skin and Subcutaneous Tissue, Open Approach (ICD-10-PCS; 2020-02-23)
PROC: 0Y6M0ZB Detachment at Right Foot, Partial 2nd Ray, Open Approach (ICD-10-PCS; 2020-02-23)
PROC: 0Y6M0ZC Detachment at Right Foot, Partial 3rd Ray, Open Approach (ICD-10-PCS; 2020-02-23)
PROC: 0Y6M0ZD Detachment at Right Foot, Partial 4th Ray, Open Approach (ICD-10-PCS; 2020-02-23)
PROC: 0Y6M0ZF Detachment at Right Foot, Partial 5th Ray, Open Approach (ICD-10-PCS; 2020-02-23)
PROC: 0QBL0ZZ Excision of Right Tarsal, Open Approach (ICD-10-PCS; 2020-02-23)
DX: E11.52 Type 2 diabetes mellitus with diabetic peripheral angiopathy with gangrene (principal); N18.6 End stage renal disease; I96 Gangrene, not elsewhere classified; I12.0 Hypertensive chronic kidney disease with stage 5 chronic kidney disease or end stage renal disease; M00.9 Pyogenic arthritis, unspecified; M86.671 Other chronic osteomyelitis, right ankle and foot; E11.22 Type 2 diabetes mellitus with diabetic chronic kidney disease; Z99.2 Dependence on renal dialysis; E11.69 Type 2 diabetes mellitus with other specified complication; E78.5 Hyperlipidemia, unspecified; D64.9 Anemia, unspecified; J44.9 Chronic obstructive pulmonary disease, unspecified; I48.91 Unspecified atrial fibrillation; Z87.891 Personal history of nicotine dependence; D63.1 Anemia in chronic kidney disease; E87.5 Hyperkalemia
CPT/HCPCS: 36415; 71045; 76000; 80048; 80053; 80061; 82550; 82553; 82948; 83735; 83880; 84484; 85025; 85610; 85730; 87040; 87071; 87075; 87205; 87635; 88304; 88311; 93926; 94664; 97139; 97606; 99251; 99284; J0692; J2001; J2020; J3010; J3370; J7030; J7050; J7799; Q0162

== ENCOUNTER 2020-07-05 15:14 | Inpatient (IN) | payer MEDICARE, OTHER ==
[~2020-07-05] VITALS: Ht 180.3 cm; Wt 79.0 kg
[2020-07-05 20:07] VITALS: BP 135/61
[2020-07-05 21:08] LABS: BASOPHILS # (AUTO) 0.1 (0.0-0.1); BASOPHILS % 0.7 % (0.0-1.0); EOSINOPHILS # (AUTO) 0.1 (0.0-0.4); EOSINOPHILS % 0.8 % (0.0-6.0); HEMATOCRIT 34.4 % (38.2-49.6); HEMOGLOBIN 10.2 g/dL (14.0-18.0); LYMPHOCYTES # (AUTO) 1.4 (1.0-3.2); LYMPHOCYTES % 10.3 % (18.0-39.1); MEAN CORPUSCULAR HGB CONC 29.7 g/dL (31-35); MONOCYTES % 7.4 % (4.4-11.3); NEUTROPHILS # (AUTO) 10.7 (2.1-6.9); NEUTROPHILS % 79.5 % (38.7-80.0); PLATELET COUNT 313 x10e3/uL (140-360); RED BLOOD COUNT 3.78 x10e6/uL (4.3-5.7); RED CELL DISTRIBUTION WIDTH 16.5 % (11.7-14.4)
[2020-07-05 21:18] LABS: INR 1.07; PARTIAL THROMBOPLASTIN TIME 30.8 seconds (23.8-35.5); PROTHROMBIN TIME 14.4 seconds (11.9-14.5)
[2020-07-05 21:26] LABS: ALBUMIN 3.8 g/dL (3.5-5.0); ALBUMIN/GLOBULIN RATIO 0.8 (0.8-2.0); ANION GAP 17.5 mmol/L (8-16); CALCIUM 10.8 mg/dL (8.4-10.2); CREATININE, SERUM 3.81 mg/dL (0.72-1.25); POTASSIUM 4.5 mmol/L (3.5-5.1)
[2020-07-05 21:56] VITALS: BP 135/61
[2020-07-05] MEDS: PIPER-TAZ 3.375 GM 50 ML IV SCH (23:00)
[2020-07-05] MEDS ORDERED: SODIUM CHLORIDE 0.9% 250ML 250 ML ONE (23:44)
[2020-07-06] VITALS (8 sets, daily range): BP systolic 107–153; BP diastolic 54–71
[2020-07-06] MEDS: PIPER-TAZ 3.375 GM 50 ML IV SCH ×3 (04:00→21:00)
[2020-07-06] MEDS ORDERED: DEXTROSE 50% SYRINGE 50 ML IV PRN ×2 (05:45)
[2020-07-06] MEDS: APIXAB 2.5 MG TABLET PO SCH ×2 (06:20→21:00)
[2020-07-06] MEDS: GLIMEPIRIDE 2 MG TAB PO SCH (07:30)
[2020-07-06] MEDS: INSULIN REGULAR, HUMAN 100 UNIT/1 ML 3ML VIAL SQ SCH ×4 (07:30→21:00)
[2020-07-06] MEDS ORDERED: INSULIN REGULAR, HUMAN 100 UNIT/1 ML 3ML VIAL SQ SCH (07:30)
[2020-07-06] MEDS: FOLIC ACID/CYANOCOB/PYRIDOXINE TAB PO SCH (09:00)
[2020-07-06] MEDS: AMLODIPINE BESYLATE 10 MG TAB PO SCH (09:00)
[2020-07-06] MEDS ORDERED: SODIUM CHLORIDE 0.9% 1000ML 2,000 ML ONE (09:10)
[2020-07-06] MEDS: SEVELAMER CARBONATE 800 MG TAB PO SCH ×2 (12:00→17:00)
[2020-07-06] MEDS: AMIODARONE HCL 200 MG TAB PO SCH (14:00)
[2020-07-06] MEDS ORDERED: HEPARIN SOD/SOD CHLORIDE 2,000 ML ONE (14:43)
[2020-07-06] MEDS ORDERED: LIDOCAINE HCL 2% LOCAL 20 ML VIAL ONE (14:43)
[2020-07-06] MEDS ORDERED: IOPAMIDOL 300MG/ML 100 ML INFUS..BTL IV ONE (14:44)
[2020-07-06] MEDS ORDERED: SODIUM CHLORIDE 0.9% 1000ML 1,000 ML ONE (14:44)
[2020-07-06] MEDS ORDERED: MIDAZOLAM HCL 2 MG/2 ML VIAL ONE (17:21)
[2020-07-06] MEDS ORDERED: FENTANYL CITRATE/PF 100MCG/2 ML INJ ONE (17:22)
[2020-07-07] VITALS (9 sets, daily range): BP systolic 81–117; BP diastolic 39–64
[2020-07-07] MEDS: APIXAB 2.5 MG TABLET PO SCH ×2 (05:15→17:22)
[2020-07-07 07:19] LABS: ALBUMIN 3.5 g/dL (3.5-5.0); ALBUMIN/GLOBULIN RATIO 0.9 (0.8-2.0); ANION GAP 15.9 mmol/L (8-16); CALCIUM 10.3 mg/dL (8.4-10.2); POTASSIUM 4.9 mmol/L (3.5-5.1)
[2020-07-07] MEDS: INSULIN REGULAR, HUMAN 100 UNIT/1 ML 3ML VIAL SQ SCH ×4 (07:30→19:37)
[2020-07-07] MEDS: SEVELAMER CARBONATE 800 MG TAB PO SCH ×3 (08:30→17:22)
[2020-07-07] MEDS: GLIMEPIRIDE 2 MG TAB PO SCH (08:30)
[2020-07-07] MEDS: PIPER-TAZ 3.375 GM 50 ML IV SCH ×2 (09:25→19:47)
[2020-07-07] MEDS: FOLIC ACID/CYANOCOB/PYRIDOXINE TAB PO SCH (09:25)
[2020-07-07] MEDS: AMLODIPINE BESYLATE 10 MG TAB PO SCH (09:25)
[2020-07-07] MEDS: METOPROLOL TARTRATE 50 MG TAB PO SCH ×2 (09:25→16:45)
[2020-07-08] VITALS (8 sets, daily range): BP systolic 96–129; BP diastolic 41–58
[2020-07-08] MEDS: APIXAB 2.5 MG TABLET PO SCH ×2 (05:43→17:21)
[2020-07-08] MEDS: INSULIN REGULAR, HUMAN 100 UNIT/1 ML 3ML VIAL SQ SCH ×4 (07:30→21:00)
[2020-07-08] MEDS: ASPIRIN 81 MG ENTERIC COATED PO SCH (08:44)
[2020-07-08] MEDS: SEVELAMER CARBONATE 800 MG TAB PO SCH ×3 (08:44→17:21)
[2020-07-08] MEDS: GLIMEPIRIDE 2 MG TAB PO SCH (08:44)
[2020-07-08] MEDS: PIPER-TAZ 3.375 GM 50 ML IV SCH ×2 (08:44→21:31)
[2020-07-08] MEDS: METOPROLOL TARTRATE 50 MG TAB PO SCH ×2 (08:45→17:00)
[2020-07-08] MEDS: FOLIC ACID/CYANOCOB/PYRIDOXINE TAB PO SCH (08:45)
[2020-07-08] MEDS: AMLODIPINE BESYLATE 10 MG TAB PO SCH (08:46)
[2020-07-08] MEDS ORDERED: DEXTROSE 50% SYRINGE 50 ML IV ONE ×2 (16:00→17:35)
[2020-07-08] MEDS: DEXTROSE 50% SYRINGE 50 ML IV PRN ×2 (16:03→17:39)
[2020-07-09] VITALS (8 sets, daily range): BP systolic 101–125; BP diastolic 48–65
[2020-07-09] MEDS: APIXAB 2.5 MG TABLET PO SCH ×2 (05:19→17:01)
[2020-07-09 07:19] LABS: BASOPHILS # (AUTO) 0.1 (0.0-0.1); BASOPHILS % 0.7 % (0.0-1.0); EOSINOPHILS # (AUTO) 0.1 (0.0-0.4); EOSINOPHILS % 0.7 % (0.0-6.0); HEMOGLOBIN 9.4 g/dL (14.0-18.0); LYMPHOCYTES # (AUTO) 1.4 (1.0-3.2); MEAN CORPUSCULAR HGB CONC 30.3 g/dL (31-35); MEAN CORPUSCULAR VOLUME 89.1 fL (81-99); MONOCYTES # (AUTO) 1.1 (0.2-0.8); MONOCYTES % 6.9 % (4.4-11.3); NEUTROPHILS # (AUTO) 12.3 (2.1-6.9); NEUTROPHILS % 81.7 % (38.7-80.0); PLATELET COUNT 343 x10e3/uL (140-360); RED BLOOD COUNT 3.48 x10e6/uL (4.3-5.7)
[2020-07-09] MEDS: BUDESONIDE/FORMOTEROL 160/4.5MCG INHALER INH PRN ×2 (07:28→19:25)
[2020-07-09] MEDS: GLIMEPIRIDE 2 MG TAB PO SCH (07:30)
[2020-07-09] MEDS: INSULIN REGULAR, HUMAN 100 UNIT/1 ML 3ML VIAL SQ SCH ×4 (07:30→20:12)
[2020-07-09 07:51] LABS: ALBUMIN 3.5 g/dL (3.5-5.0); ALBUMIN/GLOBULIN RATIO 0.8 (0.8-2.0); ANION GAP 18.1 mmol/L (8-16); CALCIUM 10.5 mg/dL (8.4-10.2); CREATININE, SERUM 5.39 mg/dL (0.72-1.25); POTASSIUM 5.1 mmol/L (3.5-5.1)
[2020-07-09] MEDS ORDERED: SODIUM CHLORIDE 0.9% 1000ML 2,000 ML ONE (07:52)
[2020-07-09] MEDS: SEVELAMER CARBONATE 800 MG TAB PO SCH ×3 (07:58→17:01)
[2020-07-09] MEDS: DEXTROSE 50% SYRINGE 50 ML IV PRN (07:58)
[2020-07-09] MEDS: FOLIC ACID/CYANOCOB/PYRIDOXINE TAB PO SCH (08:00)
[2020-07-09] MEDS: PIPER-TAZ 3.375 GM 50 ML IV SCH ×2 (08:00→21:29)
[2020-07-09] MEDS: ASPIRIN 81 MG ENTERIC COATED PO SCH (08:00)
[2020-07-09] MEDS: AMLODIPINE BESYLATE 5 MG TAB PO SCH (09:00)
[2020-07-09] MEDS ORDERED: ALBUMIN 25% 12.5GM 0.25 GM/ML BTL IV PRN (10:00)
[2020-07-09] MEDS: AMIODARONE HCL 200 MG TAB PO SCH (14:21)
[2020-07-09] MEDS: VANCOMYCIN 750MG/NS 150ML IVPB 150 ML IV SCH (17:01)
[2020-07-10] VITALS (8 sets, daily range): BP systolic 92–114; BP diastolic 48–77
[2020-07-10] MEDS: APIXAB 2.5 MG TABLET PO SCH (05:24)
[2020-07-10] MEDS: BUDESONIDE/FORMOTEROL 160/4.5MCG INHALER INH PRN ×2 (07:25→19:11)
[2020-07-10] MEDS: INSULIN REGULAR, HUMAN 100 UNIT/1 ML 3ML VIAL SQ SCH ×4 (07:30→21:00)
[2020-07-10] MEDS: AMLODIPINE BESYLATE 5 MG TAB PO SCH (08:31)
[2020-07-10] MEDS: FOLIC ACID/CYANOCOB/PYRIDOXINE TAB PO SCH (08:31)
[2020-07-10] MEDS: GLIMEPIRIDE 2 MG TAB PO SCH (08:32)
[2020-07-10] MEDS: ASPIRIN 81 MG ENTERIC COATED PO SCH (08:32)
[2020-07-10] MEDS: SEVELAMER CARBONATE 800 MG TAB PO SCH ×3 (08:32→17:39)
[2020-07-10] MEDS: METOPROLOL TARTRATE 50 MG TAB PO SCH ×2 (08:32→16:47)
[2020-07-10] MEDS: PIPER-TAZ 3.375 GM 50 ML IV SCH ×2 (08:35→21:08)
[2020-07-11] VITALS (8 sets, daily range): BP systolic 100–144; BP diastolic 45–68
[2020-07-11 06:03] LABS: BASOPHILS # (AUTO) 0.1 (0.0-0.1); BASOPHILS % 0.7 % (0.0-1.0); EOSINOPHILS # (AUTO) 0.1 (0.0-0.4); EOSINOPHILS % 0.6 % (0.0-6.0); HEMATOCRIT 29.9 % (38.2-49.6); HEMOGLOBIN 9.1 g/dL (14.0-18.0); LYMPHOCYTES # (AUTO) 1.2 (1.0-3.2); LYMPHOCYTES % 8.3 % (18.0-39.1); MEAN CORPUSCULAR HEMOGLOBIN 28.2 pg (28-32); MEAN CORPUSCULAR HGB CONC 30.4 g/dL (31-35); MEAN CORPUSCULAR VOLUME 92.6 fL (81-99); MONOCYTES # (AUTO) 1.1 (0.2-0.8); MONOCYTES % 7.9 % (4.4-11.3); NEUTROPHILS # (AUTO) 11.7 (2.1-6.9); NEUTROPHILS % 81.5 % (38.7-80.0); PLATELET COUNT 288 x10e3/uL (140-360); RED BLOOD COUNT 3.23 x10e6/uL (4.3-5.7); RED CELL DISTRIBUTION WIDTH 17.2 % (11.7-14.4)
[2020-07-11 06:17] LABS: ALBUMIN 3.6 g/dL (3.5-5.0); ALBUMIN/GLOBULIN RATIO 0.9 (0.8-2.0); ANION GAP 17.4 mmol/L (8-16); CALCIUM 9.9 mg/dL (8.4-10.2); CREATININE, SERUM 4.49 mg/dL (0.72-1.25); POTASSIUM 4.4 mmol/L (3.5-5.1)
[2020-07-11] MEDS: DEXTROSE 50% SYRINGE 50 ML IV PRN (06:38)
[2020-07-11] MEDS: GLIMEPIRIDE 2 MG TAB PO SCH (07:30)
[2020-07-11] MEDS: INSULIN REGULAR, HUMAN 100 UNIT/1 ML 3ML VIAL SQ SCH ×4 (07:30→20:34)
[2020-07-11] MEDS: SEVELAMER CARBONATE 800 MG TAB PO SCH ×3 (08:00→17:22)
[2020-07-11] MEDS: PIPER-TAZ 3.375 GM 50 ML IV SCH ×2 (08:35→20:34)
[2020-07-11] MEDS ORDERED: SODIUM CHLORIDE 0.9% 1000ML 2,000 ML ONE (08:38)
[2020-07-11] MEDS: ASPIRIN 81 MG ENTERIC COATED PO SCH (09:00)
[2020-07-11] MEDS: AMLODIPINE BESYLATE 5 MG TAB PO SCH (09:00)
[2020-07-11] MEDS: FOLIC ACID/CYANOCOB/PYRIDOXINE TAB PO SCH (09:00)
[2020-07-11] MEDS: BUDESONIDE/FORMOTEROL 160/4.5MCG INHALER INH PRN ×2 (11:15→18:40)
[2020-07-11] MEDS: AMIODARONE HCL 200 MG TAB PO SCH (15:31)
[2020-07-11] MEDS: VANCOMYCIN 750MG/NS 150ML IVPB 150 ML IV SCH (17:36)
[2020-07-12] VITALS (8 sets, daily range): BP systolic 108–130; BP diastolic 52–60
[2020-07-12] MEDS: GLIMEPIRIDE 2 MG TAB PO SCH ×2 (07:30→18:42)
[2020-07-12] MEDS: INSULIN REGULAR, HUMAN 100 UNIT/1 ML 3ML VIAL SQ SCH ×4 (07:30→20:53)
[2020-07-12] MEDS: SEVELAMER CARBONATE 800 MG TAB PO SCH ×3 (08:00→18:42)
[2020-07-12] MEDS: BUDESONIDE/FORMOTEROL 160/4.5MCG INHALER INH PRN ×2 (08:20→20:55)
[2020-07-12] MEDS ORDERED: BUPIVACAINE HCL 0.5% INJ 30 ML VIAL INJ ONE (08:46)
[2020-07-12] MEDS: METOPROLOL TARTRATE 50 MG TAB PO SCH ×2 (09:00→18:42)
[2020-07-12] MEDS: AMLODIPINE BESYLATE 5 MG TAB PO SCH (09:00)
[2020-07-12] MEDS: FOLIC ACID/CYANOCOB/PYRIDOXINE TAB PO SCH (09:00)
[2020-07-12] MEDS: ASPIRIN 81 MG ENTERIC COATED PO SCH (09:00)
[2020-07-12] MEDS: PIPER-TAZ 3.375 GM 50 ML IV SCH ×2 (09:33→20:53)
[2020-07-12] MEDS ORDERED: SODIUM CHLORIDE 0.9% 500ML 500 ML ONE (09:52)
[2020-07-12] MEDS ORDERED: SEVOFLURANE INHAL SOLN 250 ML PEN BTL ONE (13:23)
[2020-07-12] MEDS ORDERED: DEXAMETHASONE SOD PHOS INJ 4 MG/ML VIAL ONE (13:23)
[2020-07-12] MEDS ORDERED: LIDOCAINE HCL 2% LOCAL INJ 5 ML SDV VIAL INJ ONE (13:23)
[2020-07-12] MEDS ORDERED: PROPOFOL IV EMULSION 10 MG/ML 20 ML VIAL ONE (13:23)
[2020-07-12] MEDS ORDERED: ONDANSETRON HCL INJ 2MG/ML 2ML 2 MG/ML VIAL ONE (13:23)
[2020-07-12] MEDS ORDERED: FENTANYL CITRATE/PF 100MCG/2 ML INJ ONE (14:14)
[2020-07-12] MEDS: PANTOPRAZOLE SOD 40 MG TABEC PO SCH (18:45)
[2020-07-13] VITALS (8 sets, daily range): BP systolic 94–135; BP diastolic 43–70
[2020-07-13] MEDS: INSULIN REGULAR, HUMAN 100 UNIT/1 ML 3ML VIAL SQ SCH ×4 (07:30→21:00)
[2020-07-13] MEDS: GLIMEPIRIDE 2 MG TAB PO SCH (07:30)
[2020-07-13] MEDS: BUDESONIDE/FORMOTEROL 160/4.5MCG INHALER INH PRN ×2 (07:38→19:35)
[2020-07-13 07:39] LABS: BASOPHILS # (AUTO) 0.1 (0.0-0.1); BASOPHILS % 0.5 % (0.0-1.0); EOSINOPHILS % 0.2 % (0.0-6.0); HEMATOCRIT 29.1 % (38.2-49.6); HEMOGLOBIN 8.8 g/dL (14.0-18.0); LYMPHOCYTES # (AUTO) 1.2 (1.0-3.2); MEAN CORPUSCULAR HEMOGLOBIN 27.6 pg (28-32); MEAN CORPUSCULAR HGB CONC 30.2 g/dL (31-35); MEAN CORPUSCULAR VOLUME 91.2 fL (81-99); MONOCYTES # (AUTO) 0.9 (0.2-0.8); MONOCYTES % 6.7 % (4.4-11.3); NEUTROPHILS # (AUTO) 10.9 (2.1-6.9); NEUTROPHILS % 82.7 % (38.7-80.0); PLATELET COUNT 303 x10e3/uL (140-360); RED BLOOD COUNT 3.19 x10e6/uL (4.3-5.7); RED CELL DISTRIBUTION WIDTH 16.9 % (11.7-14.4)
[2020-07-13 07:59] LABS: ALBUMIN 3.8 g/dL (3.5-5.0); ALBUMIN/GLOBULIN RATIO 0.9 (0.8-2.0); ANION GAP 17.2 mmol/L (8-16); CALCIUM 10.1 mg/dL (8.4-10.2); CREATININE, SERUM 4.84 mg/dL (0.72-1.25); POTASSIUM 5.2 mmol/L (3.5-5.1)
[2020-07-13] MEDS: AMLODIPINE BESYLATE 5 MG TAB PO SCH (09:00)
[2020-07-13] MEDS: FOLIC ACID/CYANOCOB/PYRIDOXINE TAB PO SCH (14:12)
[2020-07-13] MEDS: ASPIRIN 81 MG ENTERIC COATED PO SCH (14:12)
[2020-07-13] MEDS: SEVELAMER CARBONATE 800 MG TAB PO SCH ×3 (14:12→17:06)
[2020-07-13] MEDS: PANTOPRAZOLE SOD 40 MG TABEC PO SCH (14:12)
[2020-07-13] MEDS: AMIODARONE HCL 200 MG TAB PO SCH (14:12)
[2020-07-13] MEDS: VANCOMYCIN 750MG/NS 150ML IVPB 150 ML IV SCH (18:33)
[2020-07-14] VITALS (8 sets, daily range): BP systolic 108–116; BP diastolic 49–57
[2020-07-14] MEDS: BUDESONIDE/FORMOTEROL 160/4.5MCG INHALER INH PRN ×2 (07:18→19:20)
[2020-07-14] MEDS: INSULIN REGULAR, HUMAN 100 UNIT/1 ML 3ML VIAL SQ SCH ×4 (07:30→21:00)
[2020-07-14] MEDS: GLIMEPIRIDE 2 MG TAB PO SCH (08:47)
[2020-07-14] MEDS: SEVELAMER CARBONATE 800 MG TAB PO SCH ×3 (08:47→17:40)
[2020-07-14] MEDS: ASPIRIN 81 MG ENTERIC COATED PO SCH (08:48)
[2020-07-14] MEDS: PANTOPRAZOLE SOD 40 MG TABEC PO SCH (08:48)
[2020-07-14] MEDS: FOLIC ACID/CYANOCOB/PYRIDOXINE TAB PO SCH (08:48)
[2020-07-14] MEDS: AMLODIPINE BESYLATE 5 MG TAB PO SCH (09:00)
[2020-07-14] MEDS: METOPROLOL TARTRATE 50 MG TAB PO SCH ×2 (09:00→17:41)
[2020-07-15] VITALS (7 sets, daily range): BP systolic 100–124; BP diastolic 43–59
[2020-07-15 06:43] LABS: BASOPHILS # (AUTO) 0.1 (0.0-0.1); EOSINOPHILS # (AUTO) 0.2 (0.0-0.4); EOSINOPHILS % 2.6 % (0.0-6.0); HEMATOCRIT 28.2 % (38.2-49.6); HEMOGLOBIN 8.6 g/dL (14.0-18.0); LYMPHOCYTES # (AUTO) 1.6 (1.0-3.2); LYMPHOCYTES % 17.6 % (18.0-39.1); MEAN CORPUSCULAR HGB CONC 30.5 g/dL (31-35); MEAN CORPUSCULAR VOLUME 94.9 fL (81-99); MONOCYTES # (AUTO) 0.7 (0.2-0.8); MONOCYTES % 7.9 % (4.4-11.3); NEUTROPHILS # (AUTO) 6.3 (2.1-6.9); NEUTROPHILS % 68.9 % (38.7-80.0); PLATELET COUNT 250 x10e3/uL (140-360); RED BLOOD COUNT 2.97 x10e6/uL (4.3-5.7); RED CELL DISTRIBUTION WIDTH 17.3 % (11.7-14.4)
[2020-07-15 07:08] LABS: ANION GAP 14.4 mmol/L (8-16); CALCIUM 9.4 mg/dL (8.4-10.2); CREATININE, SERUM 4.68 mg/dL (0.72-1.25); POTASSIUM 4.4 mmol/L (3.5-5.1)
[2020-07-15] MEDS: BUDESONIDE/FORMOTEROL 160/4.5MCG INHALER INH PRN (07:11)
[2020-07-15] MEDS: INSULIN REGULAR, HUMAN 100 UNIT/1 ML 3ML VIAL SQ SCH ×4 (07:30→20:49)
[2020-07-15] MEDS: SEVELAMER CARBONATE 800 MG TAB PO SCH ×3 (08:28→17:29)
[2020-07-15] MEDS: GLIMEPIRIDE 2 MG TAB PO SCH (08:28)
[2020-07-15] MEDS ORDERED: CALCIUM CARBONATE 500 MG CHEWABLE TABS PO PRN (08:30)
[2020-07-15] MEDS: METOPROLOL TARTRATE 50 MG TAB PO SCH ×2 (09:00→17:29)
[2020-07-15] MEDS: AMLODIPINE BESYLATE 5 MG TAB PO SCH (09:00)
[2020-07-15] MEDS: ASPIRIN 81 MG ENTERIC COATED PO SCH (09:14)
[2020-07-15] MEDS: FOLIC ACID/CYANOCOB/PYRIDOXINE TAB PO SCH (09:14)
[2020-07-15] MEDS: PANTOPRAZOLE SOD 40 MG TABEC PO SCH (09:14)
[2020-07-16] VITALS (8 sets, daily range): BP systolic 104–146; BP diastolic 44–90
[2020-07-16] MEDS: INSULIN REGULAR, HUMAN 100 UNIT/1 ML 3ML VIAL SQ SCH ×4 (07:30→21:38)
[2020-07-16] MEDS: GLIMEPIRIDE 2 MG TAB PO SCH (07:30)
[2020-07-16] MEDS ORDERED: SODIUM CHLORIDE 0.9% 1000ML 2,000 ML ONE (07:44)
[2020-07-16] MEDS: BUDESONIDE/FORMOTEROL 160/4.5MCG INHALER INH PRN ×2 (07:50→19:50)
[2020-07-16] MEDS: PANTOPRAZOLE SOD 40 MG TABEC PO SCH (07:58)
[2020-07-16] MEDS: ASPIRIN 81 MG ENTERIC COATED PO SCH (07:58)
[2020-07-16] MEDS: AMLODIPINE BESYLATE 5 MG TAB PO SCH (07:58)
[2020-07-16] MEDS: FOLIC ACID/CYANOCOB/PYRIDOXINE TAB PO SCH (07:58)
[2020-07-16] MEDS: SEVELAMER CARBONATE 800 MG TAB PO SCH ×3 (07:58→18:05)
[2020-07-16] MEDS: DEXTROSE 50% SYRINGE 50 ML IV PRN (08:12)
[2020-07-16] MEDS: AMIODARONE HCL 200 MG TAB PO SCH (14:29)
[2020-07-16] MEDS: VANCOMYCIN 750MG/NS 150ML IVPB 150 ML IV SCH (18:05)
[2020-07-17] VITALS (9 sets, daily range): BP systolic 108–140; BP diastolic 45–79
[2020-07-17] MEDS: INSULIN REGULAR, HUMAN 100 UNIT/1 ML 3ML VIAL SQ SCH ×4 (07:30→21:00)
[2020-07-17] MEDS: BUDESONIDE/FORMOTEROL 160/4.5MCG INHALER INH PRN ×2 (07:58→18:20)
[2020-07-17] MEDS: SEVELAMER CARBONATE 800 MG TAB PO SCH ×3 (08:23→17:27)
[2020-07-17] MEDS: GLIMEPIRIDE 2 MG TAB PO SCH (08:23)
[2020-07-17] MEDS: ASPIRIN 81 MG ENTERIC COATED PO SCH (08:24)
[2020-07-17] MEDS: FOLIC ACID/CYANOCOB/PYRIDOXINE TAB PO SCH (08:25)
[2020-07-17] MEDS: PANTOPRAZOLE SOD 40 MG TABEC PO SCH (08:25)
[2020-07-17] MEDS: AMLODIPINE BESYLATE 5 MG TAB PO SCH (08:25)
[2020-07-17] MEDS: METOPROLOL TARTRATE 50 MG TAB PO SCH ×2 (08:28→17:29)
[2020-07-18 05:20] VITALS: BP 117/55
[2020-07-18] MEDS: BUDESONIDE/FORMOTEROL 160/4.5MCG INHALER INH PRN (07:26)
[2020-07-18] MEDS: INSULIN REGULAR, HUMAN 100 UNIT/1 ML 3ML VIAL SQ SCH ×2 (07:30→11:30)
[2020-07-18] MEDS: GLIMEPIRIDE 2 MG TAB PO SCH (07:30)
[2020-07-18] MEDS ORDERED: SODIUM CHLORIDE 0.9% 1000ML 2,000 ML ONE (07:54)
[2020-07-18] MEDS: DEXTROSE 50% SYRINGE 50 ML IV PRN (08:16)
[2020-07-18 08:31] VITALS: BP 95/72
[2020-07-18] MEDS: AMLODIPINE BESYLATE 5 MG TAB PO SCH (09:00)
[2020-07-18 09:05] VITALS: BP 95/72
[2020-07-18] MEDS: FOLIC ACID/CYANOCOB/PYRIDOXINE TAB PO SCH (09:06)
[2020-07-18] MEDS: PANTOPRAZOLE SOD 40 MG TABEC PO SCH (09:06)
[2020-07-18] MEDS: ASPIRIN 81 MG ENTERIC COATED PO SCH (09:06)
[2020-07-18] MEDS: SEVELAMER CARBONATE 800 MG TAB PO SCH ×2 (09:06→12:18)
[2020-07-18 09:43] LABS: ALBUMIN 2.9 g/dL (3.5-5.0); ALBUMIN/GLOBULIN RATIO 0.7 (0.8-2.0); ANION GAP 15.8 mmol/L (8-16); CALCIUM 9.5 mg/dL (8.4-10.2); CREATININE, SERUM 4.38 mg/dL (0.72-1.25); POTASSIUM 4.8 mmol/L (3.5-5.1)
[2020-07-18 09:57] LABS: BASOPHILS # (AUTO) 0.1 (0.0-0.1); BASOPHILS % 0.8 % (0.0-1.0); EOSINOPHILS # (AUTO) 0.2 (0.0-0.4); EOSINOPHILS % 1.6 % (0.0-6.0); HEMATOCRIT 27.2 % (38.2-49.6); HEMOGLOBIN 8.2 g/dL (14.0-18.0); LYMPHOCYTES % 8.6 % (18.0-39.1); MEAN CORPUSCULAR HEMOGLOBIN 28.8 pg (28-32); MEAN CORPUSCULAR HGB CONC 30.1 g/dL (31-35); MEAN CORPUSCULAR VOLUME 95.4 fL (81-99); MONOCYTES # (AUTO) 0.8 (0.2-0.8); MONOCYTES % 6.9 % (4.4-11.3); NEUTROPHILS # (AUTO) 9.6 (2.1-6.9); NEUTROPHILS % 81.2 % (38.7-80.0); PLATELET COUNT 259 x10e3/uL (140-360); RED BLOOD COUNT 2.85 x10e6/uL (4.3-5.7); RED CELL DISTRIBUTION WIDTH 17.8 % (11.7-14.4)
[2020-07-18 11:39] VITALS: BP 135/50
[2020-07-18] MEDS: AMIODARONE HCL 200 MG TAB PO SCH (14:10)
[2020-07-18] MEDS: VANCOMYCIN 750MG/NS 150ML IVPB 150 ML IV SCH (15:24)
[2020-07-18 16:36] VITALS: BP 116/56
[2020-07-19] MEDS ORDERED: MUPIROCIN 2% OINT 22 GM TUBE TOP SCH (09:00)
== END 2020-07-18 17:30 | disposition home or self-care (01) | DRG 270 ==
LOC: OBSVTOIN 18:05 → MED/SURG3 18:05
PROVIDERS: ADMIT Internal Medicine; ATTEND Internal Medicine
PROC: 047L3Z1 Dilation of Left Femoral Artery using Drug-Coated Balloon, Percutaneous Approach (ICD-10-PCS; principal; 2020-07-06)
PROC: 04CL3ZZ Extirpation of Matter from Left Femoral Artery, Percutaneous Approach (ICD-10-PCS; 2020-07-06)
PROC: B41D1ZZ Fluoroscopy of Aorta and Bilateral Lower Extremity Arteries using Low Osmolar Contrast (ICD-10-PCS; 2020-07-06)
PROC: 0Y6N0ZB Detachment at Left Foot, Partial 2nd Ray, Open Approach (ICD-10-PCS; 2020-07-12)
PROC: 0Y6N0ZC Detachment at Left Foot, Partial 3rd Ray, Open Approach (ICD-10-PCS; 2020-07-12)
DX: E11.52 Type 2 diabetes mellitus with diabetic peripheral angiopathy with gangrene (principal); N18.6 End stage renal disease; I70.262 Atherosclerosis of native arteries of extremities with gangrene, left leg; I12.0 Hypertensive chronic kidney disease with stage 5 chronic kidney disease or end stage renal disease; M86.8X7 Other osteomyelitis, ankle and foot; L03.116 Cellulitis of left lower limb; N25.81 Secondary hyperparathyroidism of renal origin; I70.92 Chronic total occlusion of artery of the extremities; E11.69 Type 2 diabetes mellitus with other specified complication; I48.91 Unspecified atrial fibrillation; Z82.49 Family history of ischemic heart disease and other diseases of the circulatory system; D64.9 Anemia, unspecified; Z88.0 Allergy status to penicillin; L97.524 Non-pressure chronic ulcer of other part of left foot with necrosis of bone; E11.42 Type 2 diabetes mellitus with diabetic polyneuropathy; N25.0 Renal osteodystrophy; D63.1 Anemia in chronic kidney disease; E78.5 Hyperlipidemia, unspecified; Z79.01 Long term (current) use of anticoagulants; F17.210 Nicotine dependence, cigarettes, uncomplicated; B95.62 Methicillin resistant Staphylococcus aureus infection as the cause of diseases classified elsewhere; R53.81 Other malaise
CPT/HCPCS: 36247; 36415; 37224; 37225; 71045; 75625; 75716; 76937; 80048; 80053; 82948; 83036; 83970; 84132; 84134; 85025; 85610; 85651; 85730; 86140; 86704; 86705; 87040; 87071; 87075; 87186; 87205; 87340; 88304; 88305; 88307; 88311; 90962; 93005; 96366; 97139; 97606; 99152; 99153; 99251; C1714; C1725; C1760; C1769; C1887; C2623; J1100; J1817; J2001; J2250; J2405; J2543; J3010; J7030; J7040; J7050; J7799; Q9967; U0002

== ENCOUNTER 2020-12-03 11:20 | Inpatient (IN) | payer MEDICARE ==
[~2020-12-03] VITALS: Ht 180.3 cm; Wt 79.4 kg
[2020-12-03 11:59] LABS: BASOPHILS # (AUTO) 0.1 (0.0-0.1); BASOPHILS % 1.3 % (0.0-1.0); EOSINOPHILS # (AUTO) 0.2 (0.0-0.4); EOSINOPHILS % 3.5 % (0.0-6.0); HEMOGLOBIN 11.4 g/dL (14.0-18.0); LYMPHOCYTES % 16.4 % (18.0-39.1); MEAN CORPUSCULAR HEMOGLOBIN 24.8 pg (28-32); MEAN CORPUSCULAR VOLUME 82.6 fL (81-99); MONOCYTES # (AUTO) 0.5 (0.2-0.8); MONOCYTES % 8.2 % (4.4-11.3); NEUTROPHILS # (AUTO) 4.5 (2.1-6.9); NEUTROPHILS % 70.1 % (38.7-80.0); PLATELET COUNT 214 x10e3/uL (140-360); RED CELL DISTRIBUTION WIDTH 20.1 % (11.7-14.4)
[2020-12-03 12:10] LABS: INR 1.06; PROTHROMBIN TIME 14.5 seconds (11.9-14.5)
[2020-12-03 12:11] LABS: PARTIAL THROMBOPLASTIN TIME 35.1 seconds (23.8-35.5)
[2020-12-03] MEDS ORDERED: ONDANSETRON HCL INJ 2MG/ML 2ML 2 MG/ML VIAL IV PRN (12:15)
[2020-12-03] MEDS ORDERED: DEXTROSE 50% SYRINGE 50 ML IV PRN (12:15)
[2020-12-03 12:18] LABS: ALBUMIN 3.4 g/dL (3.5-5.0); ALBUMIN/GLOBULIN RATIO 0.8 (0.8-2.0); ANION GAP 22.4 mmol/L (8-16); CALCIUM 9.9 mg/dL (8.4-10.2); CREATININE, SERUM 11.67 mg/dL (0.72-1.25); MAGNESIUM 2.5 MG/DL (1.3-2.1); POTASSIUM 5.4 mmol/L (3.5-5.1)
[2020-12-03 12:29] LABS: CREATINE KINASE MB 6.1 ng/mL (0-5.0)
[2020-12-03 15:29] VITALS: BP 109/55
[2020-12-03 15:33] VITALS: BP 109/55
[2020-12-03] MEDS: INSULIN LISPRO 100 UNIT/1 ML 3ML VIAL SQ SCH ×2 (16:00→23:47)
[2020-12-03] MEDS ORDERED: MIDODRINE HCL 5 MG TABLET PO ONE (17:00)
[2020-12-03] MEDS ORDERED: SODIUM CHLORIDE 0.9% 250ML 500 ML IV PRN (17:15)
[2020-12-03] MEDS ORDERED: SODIUM CHLORIDE 0.9% 1000ML 2,000 ML IV PRN (17:15)
[2020-12-03] MEDS ORDERED: ALBUMIN 25% 12.5GM 0.25 GM/ML BTL IV PRN (17:15)
[2020-12-03] MEDS ORDERED: BUDESONIDE/FORMOTEROL 160/4.5MCG INHALER INH PRN (19:00)
[2020-12-03 19:30] LABS: CREATINE KINASE MB 4.2 ng/mL (0-5.0)
[2020-12-03 20:17] VITALS: BP 138/79
[2020-12-03 21:00] VITALS: BP 138/79
[2020-12-03 23:39] VITALS: BP 141/70
[2020-12-03] MEDS: AMIODARONE HCL 200 MG TAB PO SCH (23:46)
[2020-12-04] VITALS (7 sets, daily range): BP systolic 122–161; BP diastolic 51–79
[2020-12-04 05:05] LABS: BASOPHILS # (AUTO) 0.1 (0.0-0.1); BASOPHILS % 1.3 % (0.0-1.0); EOSINOPHILS # (AUTO) 0.2 (0.0-0.4); EOSINOPHILS % 4.1 % (0.0-6.0); HEMATOCRIT 34.6 % (38.2-49.6); HEMOGLOBIN 10.4 g/dL (14.0-18.0); LYMPHOCYTES % 18.7 % (18.0-39.1); MEAN CORPUSCULAR HEMOGLOBIN 24.8 pg (28-32); MEAN CORPUSCULAR HGB CONC 30.1 g/dL (31-35); MEAN CORPUSCULAR VOLUME 82.6 fL (81-99); MONOCYTES # (AUTO) 0.5 (0.2-0.8); MONOCYTES % 9.9 % (4.4-11.3); NEUTROPHILS # (AUTO) 3.5 (2.1-6.9); NEUTROPHILS % 65.6 % (38.7-80.0); PLATELET COUNT 210 x10e3/uL (140-360); RED BLOOD COUNT 4.19 x10e6/uL (4.3-5.7); RED CELL DISTRIBUTION WIDTH 19.9 % (11.7-14.4)
[2020-12-04 05:34] LABS: ALBUMIN 3.2 g/dL (3.5-5.0); ALBUMIN/GLOBULIN RATIO 0.8 (0.8-2.0); ANION GAP 15.2 mmol/L (8-16); CALCIUM 9.4 mg/dL (8.4-10.2); CREATININE, SERUM 5.88 mg/dL (0.72-1.25); POTASSIUM 4.2 mmol/L (3.5-5.1)
[2020-12-04 06:10] LABS: CREATINE KINASE MB 3.4 ng/mL (0-5.0)
[2020-12-04] MEDS: INSULIN LISPRO 100 UNIT/1 ML 3ML VIAL SQ SCH ×4 (07:30→21:00)
[2020-12-04] MEDS: COLLAGENASE 5 GM TUBE TP SCH (08:44)
[2020-12-04] MEDS: UMECLIDINIUM BROMIDE INH SCH ×2 (09:00→16:12)
[2020-12-04 13:09] LABS: CREATINE KINASE MB 2.8 ng/mL (0-5.0)
[2020-12-05] VITALS (7 sets, daily range): BP systolic 116–151; BP diastolic 48–68
[2020-12-05] MEDS: INSULIN LISPRO 100 UNIT/1 ML 3ML VIAL SQ SCH ×4 (07:30→20:36)
[2020-12-05] MEDS ORDERED: SODIUM CHLORIDE 0.9% 1000ML 2,000 ML ONE (08:38)
[2020-12-05] MEDS ORDERED: MIDODRINE HCL 5 MG TABLET PO PRN (09:00)
[2020-12-05] MEDS ORDERED: COLLAGENASE 5 GM TUBE TOP SCH (09:00)
[2020-12-05] MEDS ORDERED: ALBUMIN 25% 12.5GM 0.25 GM/ML BTL IV PRN (09:00)
[2020-12-05] MEDS: COLLAGENASE 5 GM TUBE TP SCH (11:29)
[2020-12-05] MEDS: AMIODARONE HCL 200 MG TAB PO SCH (16:53)
[2020-12-06] VITALS (9 sets, daily range): BP systolic 123–139; BP diastolic 52–69
[2020-12-06] MEDS: UMECLIDINIUM BROMIDE INH SCH (05:53)
[2020-12-06] MEDS: INSULIN LISPRO 100 UNIT/1 ML 3ML VIAL SQ SCH ×4 (07:30→21:00)
[2020-12-06] MEDS ORDERED: ACETAMINOPHEN 325 MG TAB PO PRN (15:30)
[2020-12-06] MEDS: COLLAGENASE 5 GM TUBE TP SCH (15:37)
[2020-12-07 03:50] VITALS: BP 113/55
[2020-12-07] MEDS: UMECLIDINIUM BROMIDE INH SCH (06:00)
[2020-12-07 07:07] LABS: BASOPHILS # (AUTO) 0.1 (0.0-0.1); EOSINOPHILS # (AUTO) 0.2 (0.0-0.4); EOSINOPHILS % 3.2 % (0.0-6.0); HEMOGLOBIN 10.2 g/dL (14.0-18.0); LYMPHOCYTES # (AUTO) 1.2 (1.0-3.2); LYMPHOCYTES % 16.9 % (18.0-39.1); MEAN CORPUSCULAR HEMOGLOBIN 25.2 pg (28-32); MEAN CORPUSCULAR VOLUME 84.2 fL (81-99); MONOCYTES # (AUTO) 0.7 (0.2-0.8); MONOCYTES % 9.6 % (4.4-11.3); NEUTROPHILS # (AUTO) 4.7 (2.1-6.9); NEUTROPHILS % 68.7 % (38.7-80.0); PLATELET COUNT 202 x10e3/uL (140-360); RED BLOOD COUNT 4.04 x10e6/uL (4.3-5.7); RED CELL DISTRIBUTION WIDTH 20.2 % (11.7-14.4)
[2020-12-07] MEDS ORDERED: TRAMADOL HCL 50 MG TAB PO PRN (07:15)
[2020-12-07] MEDS ORDERED: ONDANSETRON HCL 4 MG ORAL DISINTEGRATING TAB PO PRN (07:30)
[2020-12-07] MEDS: INSULIN LISPRO 100 UNIT/1 ML 3ML VIAL SQ SCH ×3 (07:30→18:04)
[2020-12-07 07:40] LABS: ANION GAP 18.4 mmol/L (8-16); CALCIUM 9.8 mg/dL (8.4-10.2); CREATININE, SERUM 5.95 mg/dL (0.72-1.25); POTASSIUM 5.4 mmol/L (3.5-5.1)
[2020-12-07 08:00] VITALS: BP 113/55
[2020-12-07 08:51] VITALS: BP 149/71
[2020-12-07 16:37] VITALS: BP 121/52
[2020-12-07] MEDS: COLLAGENASE 5 GM TUBE TP SCH (17:30)
[2020-12-07] MEDS: AMIODARONE HCL 200 MG TAB PO SCH (17:54)
== END 2020-12-07 19:10 | DRG 640 ==
LOC: ER 11:45 → ERHOLD 12:14 → MED/SURG2 13:26 → OBSVTOIN 12-07 07:01
PROVIDERS: ADMIT Family Medicine; ATTEND Family Medicine
PROC: 5A1D70Z Performance of Urinary Filtration, Intermittent, Less than 6 Hours Per Day (ICD-10-PCS; principal; 2020-12-03)
DX: E87.5 Hyperkalemia (principal); N18.6 End stage renal disease; N17.9 Acute kidney failure, unspecified; M86.672 Other chronic osteomyelitis, left ankle and foot; I13.2 Hypertensive heart and chronic kidney disease with heart failure and with stage 5 chronic kidney disease, or end stage renal disease; E11.22 Type 2 diabetes mellitus with diabetic chronic kidney disease; Z99.2 Dependence on renal dialysis; E11.69 Type 2 diabetes mellitus with other specified complication; E11.21 Type 2 diabetes mellitus with diabetic nephropathy; E11.42 Type 2 diabetes mellitus with diabetic polyneuropathy; E78.5 Hyperlipidemia, unspecified; F17.210 Nicotine dependence, cigarettes, uncomplicated; J44.9 Chronic obstructive pulmonary disease, unspecified; D63.1 Anemia in chronic kidney disease; Z89.431 Acquired absence of right foot; Z89.422 Acquired absence of other left toe(s); E11.621 Type 2 diabetes mellitus with foot ulcer; Z20.822 Contact with and (suspected) exposure to COVID-19; I50.9 Heart failure, unspecified
CPT/HCPCS: 36415; 71045; 72131; 80048; 80053; 82550; 82553; 82948; 83735; 83880; 84484; 85025; 85610; 85730; 86704; 87340; 93005; 94664; 97139; 99251; 99284; G0378; J7030; U0002

== ENCOUNTER 2020-12-24 21:05 | Inpatient (IN) | payer MEDICARE ==
[~2020-12-24] VITALS: Ht 180.3 cm; Wt 77.1 kg
[2020-12-24 22:22] LABS: BASOPHILS % 0.4 % (0.0-1.0); EOSINOPHILS # (AUTO) 0.1 (0.0-0.4); EOSINOPHILS % 1.5 % (0.0-6.0); HEMATOCRIT 30.5 % (38.2-49.6); HEMOGLOBIN 9.5 g/dL (14.0-18.0); LYMPHOCYTES # (AUTO) 0.6 (1.0-3.2); MEAN CORPUSCULAR HGB CONC 31.1 g/dL (31-35); MEAN CORPUSCULAR VOLUME 83.3 fL (81-99); MONOCYTES # (AUTO) 1.1 (0.2-0.8); MONOCYTES % 11.7 % (4.4-11.3); NEUTROPHILS # (AUTO) 7.1 (2.1-6.9); PLATELET COUNT 218 x10e3/uL (140-360); RED BLOOD COUNT 3.66 x10e6/uL (4.3-5.7); RED CELL DISTRIBUTION WIDTH 21.5 % (11.7-14.4)
[2020-12-24 23:11] LABS: ALBUMIN 3.6 g/dL (3.5-5.0); ALBUMIN/GLOBULIN RATIO 0.9 (0.8-2.0); ANION GAP 27.3 mmol/L (8-16); CALCIUM 9.6 mg/dL (8.4-10.2); CREATININE, SERUM 6.74 mg/dL (0.72-1.25)
[2020-12-24 23:13] LABS: POTASSIUM 6.3 mmol/L (3.5-5.1)
[2020-12-24] MEDS ORDERED: SODIUM CHLORIDE 0.9% 1000ML 1,000 ML IV SCH (23:15)
[2020-12-24] MEDS ORDERED: SODIUM BICARBONATE 8.4% 50 ML VIAL IV STA (23:15)
[2020-12-24] MEDS ORDERED: CALCIUM GLUCONATE 10% INJ 4.65 MEQ in SODIUM CHLORIDE 0.9% 50ML 50 ML IV ONE (23:15)
[2020-12-24] MEDS ORDERED: SODIUM CHLORIDE 0.9% 1000ML 500 ML IV SCH (23:48)
[2020-12-25] VITALS (7 sets, daily range): BP systolic 114–124; BP diastolic 52–64
[2020-12-25] MEDS ORDERED: SODIUM BICARBONATE 8.4% SYRING 50 ML ONE (00:17)
[2020-12-25] MEDS ORDERED: CHOLECALCIFEROL 1250 MCG PO SCH (07:15)
[2020-12-25] MEDS ORDERED: ALBUTEROL SULFATE HFA 8GM INHALATION AEROSOL INH PRN (07:15)
[2020-12-25] MEDS: UMECLIDINIUM BROMIDE INH SCH (09:00)
[2020-12-25] MEDS: AMLODIPINE BESYLATE 10 MG TAB PO SCH (09:18)
[2020-12-25] MEDS: GLIMEPIRIDE 2 MG TAB PO SCH (09:18)
[2020-12-25] MEDS: AMIODARONE HCL 200 MG TAB PO SCH (09:19)
[2020-12-25 09:39] LABS: ANION GAP 22.3 mmol/L (8-16); CALCIUM 9.6 mg/dL (8.4-10.2); CREATININE, SERUM 6.71 mg/dL (0.72-1.25)
[2020-12-25 09:48] LABS: POTASSIUM 6.3 mmol/L (3.5-5.1)
[2020-12-25] MEDS: BUDESONIDE/FORMOTEROL 160/4.5MCG INHALER INH PRN ×3 (11:04→20:55)
[2020-12-25] MEDS: MIDODRINE HCL 5 MG TABLET PO SCH (18:28)
[2020-12-25 18:30] LABS: AMPHETAMINES SCREEN,URINE NEGATIVE (NEGATIVE); BENZODIAZEPINES SCREEN,URINE NEGATIVE (NEGATIVE); PHENCYCLIDINE SCREEN,URINE NEGATIVE (NEGATIVE)
[2020-12-26] VITALS (8 sets, daily range): BP systolic 100–122; BP diastolic 47–88
[2020-12-26] MEDS: UMECLIDINIUM BROMIDE INH SCH (00:52)
[2020-12-26 06:54] LABS: BASOPHILS % 0.6 % (0.0-1.0); EOSINOPHILS # (AUTO) 0.1 (0.0-0.4); EOSINOPHILS % 1.4 % (0.0-6.0); HEMATOCRIT 28.3 % (38.2-49.6); HEMOGLOBIN 8.8 g/dL (14.0-18.0); LYMPHOCYTES # (AUTO) 0.6 (1.0-3.2); LYMPHOCYTES % 8.9 % (18.0-39.1); MEAN CORPUSCULAR HEMOGLOBIN 26.3 pg (28-32); MEAN CORPUSCULAR HGB CONC 31.1 g/dL (31-35); MEAN CORPUSCULAR VOLUME 84.5 fL (81-99); MONOCYTES # (AUTO) 0.9 (0.2-0.8); MONOCYTES % 13.2 % (4.4-11.3); NEUTROPHILS # (AUTO) 5.3 (2.1-6.9); NEUTROPHILS % 74.8 % (38.7-80.0); PLATELET COUNT 219 x10e3/uL (140-360); RED BLOOD COUNT 3.35 x10e6/uL (4.3-5.7); RED CELL DISTRIBUTION WIDTH 21.8 % (11.7-14.4)
[2020-12-26 07:23] LABS: ANION GAP 17.6 mmol/L (8-16); CALCIUM 9.1 mg/dL (8.4-10.2); CREATININE, SERUM 4.18 mg/dL (0.72-1.25); POTASSIUM 4.6 mmol/L (3.5-5.1)
[2020-12-26 07:55] LABS: CLARITY,URINE CLOUDY (CLEAR); COLOR,URINE YELLOW (YELLOW); LEUKOCYTE ESTERASE ,URINE TRACE (NEGATIVE); NITRITE,URINE NEGATIVE (NEGATIVE)
[2020-12-26 07:56] LABS: KETONES,URINE NEGATIVE (NEGATIVE); URINE UROBILINOGEN 0.2 mg/dL (0.2 - 1)
[2020-12-26] MEDS: GLIMEPIRIDE 2 MG TAB PO SCH (08:00)
[2020-12-26 08:09] LABS: PROTEIN,URINE DIPSTICK 1+ (NEGATIVE)
[2020-12-26 08:10] LABS: BACTERIA,URINE RARE /HPF; EPITHELIAL CELLS,URINE FEW /LPF; RBC,URINE 0-5 /HPF (0-5)
[2020-12-26] MEDS: AMLODIPINE BESYLATE 10 MG TAB PO SCH (09:00)
[2020-12-26] MEDS: COLLAGENASE 5 GM TUBE TP SCH (09:40)
[2020-12-26] MEDS: AMIODARONE HCL 200 MG TAB PO SCH (12:00)
[2020-12-26] MEDS: MIDODRINE HCL 5 MG TABLET PO SCH ×2 (14:00→15:21)
[2020-12-26] MEDS ORDERED: METHYLPREDNISOLONE SOD SUCC 40 MG/ML VIAL 1ML IV ONE (19:30)
[2020-12-27] VITALS (7 sets, daily range): BP systolic 113–156; BP diastolic 48–87
[2020-12-27] MEDS: UMECLIDINIUM BROMIDE INH SCH (06:00)
[2020-12-27] MEDS: AMIODARONE HCL 200 MG TAB PO SCH (09:25)
[2020-12-27] MEDS: GUAIFENESIN 200 MG/10 ML UDC PO PRN ×2 (09:26→22:02)
[2020-12-27] MEDS: AMLODIPINE BESYLATE 10 MG TAB PO SCH (09:26)
[2020-12-27] MEDS: COLLAGENASE 5 GM TUBE TP SCH (09:26)
[2020-12-27 09:45] LABS: BASOPHILS % 0.2 % (0.0-1.0); HEMATOCRIT 31.6 % (38.2-49.6); HEMOGLOBIN 9.5 g/dL (14.0-18.0); LYMPHOCYTES # (AUTO) 0.2 (1.0-3.2); LYMPHOCYTES % 3.6 % (18.0-39.1); MEAN CORPUSCULAR HEMOGLOBIN 25.8 pg (28-32); MEAN CORPUSCULAR HGB CONC 30.1 g/dL (31-35); MEAN CORPUSCULAR VOLUME 85.9 fL (81-99); MONOCYTES # (AUTO) 0.2 (0.2-0.8); MONOCYTES % 3.5 % (4.4-11.3); NEUTROPHILS # (AUTO) 5.9 (2.1-6.9); NEUTROPHILS % 89.5 % (38.7-80.0); PLATELET COUNT 214 x10e3/uL (140-360); RED BLOOD COUNT 3.68 x10e6/uL (4.3-5.7); RED CELL DISTRIBUTION WIDTH 21.8 % (11.7-14.4)
[2020-12-27 10:31] LABS: ANION GAP 16.7 mmol/L (8-16); CALCIUM 9.2 mg/dL (8.4-10.2); CREATININE, SERUM 3.32 mg/dL (0.72-1.25); POTASSIUM 4.7 mmol/L (3.5-5.1)
[2020-12-27] MEDS ORDERED: DEXTROSE 50% SYRINGE 50 ML IV PRN (14:45)
[2020-12-27] MEDS: INSULIN LISPRO 100 UNIT/1 ML 3ML VIAL SQ SCH ×2 (17:41→21:42)
[2020-12-27] MEDS: BUDESONIDE/FORMOTEROL 160/4.5MCG INHALER INH PRN (19:48)
[2020-12-28] VITALS (8 sets, daily range): BP systolic 106–126; BP diastolic 48–62
[2020-12-28] MEDS: UMECLIDINIUM BROMIDE INH SCH (06:00)
[2020-12-28] MEDS: INSULIN LISPRO 100 UNIT/1 ML 3ML VIAL SQ SCH ×4 (07:30→21:00)
[2020-12-28] MEDS: BUDESONIDE/FORMOTEROL 160/4.5MCG INHALER INH PRN ×2 (08:36→20:14)
[2020-12-28] MEDS: GLIMEPIRIDE 2 MG TAB PO SCH (08:46)
[2020-12-28] MEDS: AMLODIPINE BESYLATE 10 MG TAB PO SCH (09:00)
[2020-12-28] MEDS: AMIODARONE HCL 200 MG TAB PO SCH (09:00)
[2020-12-28] MEDS: COLLAGENASE 5 GM TUBE TP SCH (09:13)
[2020-12-28] MEDS ORDERED: ALBUMIN 25% 12.5GM 0.25 GM/ML BTL IV PRN (10:45)
[2020-12-28] MEDS ORDERED: SODIUM CHLORIDE 0.9% 1000ML 2,000 ML IV PRN (10:45)
[2020-12-28] MEDS: MIDODRINE HCL 5 MG TABLET PO SCH (16:44)
[2020-12-28] MEDS: GUAIFENESIN 200 MG/10 ML UDC PO PRN (23:43)
[2020-12-29] VITALS: BP 118/60
[2020-12-29 04:20] VITALS: BP 125/57
[2020-12-29] MEDS: UMECLIDINIUM BROMIDE INH SCH (06:00)
[2020-12-29] MEDS: INSULIN LISPRO 100 UNIT/1 ML 3ML VIAL SQ SCH ×3 (07:30→16:30)
[2020-12-29 08:31] VITALS: BP 129/65
[2020-12-29] MEDS: AMLODIPINE BESYLATE 10 MG TAB PO SCH (08:53)
[2020-12-29] MEDS: GLIMEPIRIDE 2 MG TAB PO SCH (08:53)
[2020-12-29] MEDS: AMIODARONE HCL 200 MG TAB PO SCH (08:53)
[2020-12-29 08:56] VITALS: BP 129/65
[2020-12-29] MEDS: COLLAGENASE 5 GM TUBE TP SCH (09:00)
[2020-12-29] MEDS: BUDESONIDE/FORMOTEROL 160/4.5MCG INHALER INH PRN (11:17)
[2020-12-29 12:27] VITALS: BP 118/60
[2020-12-29] MEDS ORDERED: DOXYCYCLINE PO (13:27)
== END 2020-12-29 17:40 | disposition home health service (06) | DRG 640 ==
LOC: ER 21:48 → ERHOLD 12-25 00:44 → MED/SURG3 12-25 01:44
PROVIDERS: ADMIT Family Medicine; ATTEND Family Medicine
PROC: 5A1D70Z Performance of Urinary Filtration, Intermittent, Less than 6 Hours Per Day (ICD-10-PCS; principal; 2020-12-25)
PROC: 5A1D70Z Performance of Urinary Filtration, Intermittent, Less than 6 Hours Per Day (ICD-10-PCS; 2020-12-26)
PROC: 5A1D70Z Performance of Urinary Filtration, Intermittent, Less than 6 Hours Per Day (ICD-10-PCS; 2020-12-28)
DX: E87.5 Hyperkalemia (principal); N18.6 End stage renal disease; I13.2 Hypertensive heart and chronic kidney disease with heart failure and with stage 5 chronic kidney disease, or end stage renal disease; M86.671 Other chronic osteomyelitis, right ankle and foot; D63.1 Anemia in chronic kidney disease; I48.91 Unspecified atrial fibrillation; E87.70 Fluid overload, unspecified; E11.22 Type 2 diabetes mellitus with diabetic chronic kidney disease; I50.9 Heart failure, unspecified; Z99.2 Dependence on renal dialysis; Z88.0 Allergy status to penicillin; E11.69 Type 2 diabetes mellitus with other specified complication; Z83.3 Family history of diabetes mellitus; E11.649 Type 2 diabetes mellitus with hypoglycemia without coma; Z20.822 Contact with and (suspected) exposure to COVID-19; R41.0 Disorientation, unspecified; Z79.84 Long term (current) use of oral hypoglycemic drugs
CPT/HCPCS: 36415; 70450; 71045; 80048; 80053; 80307; 81001; 82550; 82948; 84484; 85025; 86704; 86706; 87086; 87340; 90962; 93005; 94664; 97139; 99251; 99284; J0610; J2920; J7030; U0002